=== PATIENT | female | born 1955 | race Caucasian/White ===

== ENCOUNTER 2019-12-22 07:51 | Emergency (ER) | payer BC, SELFPAY ==
[2019-12-22 08:00] VITALS: BP 145/70; PULSE 62; PULSE 64; RESP 20; TEMP 36.6; O2SAT 95
--- NOTE | 2019-12-22 08:21 | ECG_ITS ---
Measurements Intervals [place] Rate: 56 P: 60 NH: 180 QRS: 35 QRSD: 106 T: 50 QT: 431 QTc: 419 Interpretive Statements SINUS BRADYCARDIA BASELINE WANDER- III BORDERLINE ECG Electronically Signed On 12-22-2019 9:52:59 CDT by Salvador Whatley D.O.
[2019-12-22 08:47] LABS: Basophils Absolute Auto 0.03 K/mm3 (0.00-0.10); Basophils Percent Auto 0.3 % (0.0-1.0); Eosinophils Absolute Auto 0.16 K/mm3 (0.02-0.50); Eosinophils Percent Auto 1.9 % (1.0-6.0); Hematocrit 41.4 % (35.0-49.0); Immature Granulocyte Absolute 0.07 K/mm3 (0.00-0.00); Immature Granulocyte Percent A 0.8 % (0.0-0.0); Lymphocytes Absolute Auto 1.92 K/mm3 (1.10-4.50); Lymphocytes Percent Auto 22.4 % (18.0-42.0); Mean Corpuscular HGB Conc 31.4 g/dL (32.0-36.0); Mean Corpuscular Volume 89.2 fL (78.0-102.0); Mean Platelet Volume 10.6 fl (9.2-11.8); Monocytes Percent Auto 9.3 % (2.0-11.0); Neutrophils Absolute Auto 5.6 K/mm3 (1.7-7.2); Neutrophils Percent Auto 65.3 % (50.0-70.0); Platelet Count Result 264 K/mm3 (150-420); Red Blood Count 4.64 M/mm3 (4.20-5.40); White Blood Count 8.6 K/mm3 (4.8-10.8)
[2019-12-22 09:14] LABS: Alanine Aminotransferase 20 U/L (14-59); Albumin Level 3.4 g/dL (3.4-5.0); Alkaline Phosphatase 108 U/L (46-116); Anion Gap 11.1 mmol/L (7-16); Aspartate Amino Transferase 18 U/L (15-37); Bilirubin,Total 0.3 mg/dL (0.00-1.00); Blood Urea Nitrogen 12 mg/dL (7-18); Carbon Dioxide 31 mmol/L (21-32); Chloride 105 mmol/L (98-108); Estimated CRCL calculation 76 ml/min; Estimated Glomerular Filt Rate > 60; Glucose 110 mg/dL (70-99); Magnesium 2.2 mg/dL (1.8-2.4); Osmolality Calculated 296 mOsm/kg (285-295); Potassium 4.1 mmol/L (3.5-5.1); Sodium 143 mmol/L (136-145); Thyroid Stimulating Hormone 0.53 uIU/mL (0.36-3.74); Total Protein 7.1 g/dL (6.4-8.2); Troponin I < 0.02 ng/mL (0.00-0.056)
--- NOTE | 2019-12-22 09:17 | ED.GENADULT ---
HPI - General Adult General Chief complaint: Unspecified Stated complaint: irregular heart beat Source: patient History of Present Illness HPI narrative: This is a 64-year-old female presents to the emergency department with some palpitations, apparently she has had palpitations off and on since 2010 and had a workup by her application integration architect. Patient has a history of hypertension and hypercholesterolemia. Is currently on carvedilol, and has a heart rate 56, currently asymptomatic with no chest pain no shortness of breath currently no palpitations no fever chills no abdominal pain no chest pain no headaches no blurry vision. Onset (ago): hour(s) Related Data Home Medications Medication Instructions Recorded Confirmed aspirin [Aspirin Low Dose] 81 mg PO DAILY 12/22/19 12/22/19 carvedilol 6.25 mg PO BID 12/22/19 12/22/19 metformin 500 mg PO DAILY 12/22/19 12/22/19 multivitamin [Daily Multi-Vitamin] 1 tablet PO DAILY 12/22/19 12/22/19 omega 4-zac-nfa-fish oil [Fish Oil] 1 cap PO BID 12/22/19 12/22/19 rosuvastatin 2.5 mg PO DAILY 12/22/19 12/22/19 Allergies Allergy/AdvReac Type Severity Reaction Status Date / Time No Known Allergies Allergy Unverified 06/26/16 07:46 Review of Systems Review of Systems: All systems reviewed & are unremarkable except as noted in HPI and below PMFSH Past Medical History Medical History HLD (hyperlipidemia) HTN (hypertension) Exam Const: General: no acute distress and alert Orientation/consciousness: patient oriented x3 HENMT: Head: normal to inspection Eyes: Conjunctivae: conjunctivae normal Pupils: Equal, round and reactive pupils present Neck: Neck: normal visual inspection and no lymphadenopathy Chest: Chest palpation & inspection: normal inspection of the chest Resp: Effort & Inspection: normal respiratory effort Auscultation: clear to auscultation bilaterally Cardio: Rate: regular rate and bradycardic Rhythm: regular rhythm GI: GI Palp: Yes Soft to palpation : General: Yes no CVA tenderness Skin: General skin exam: normal color Rashes: no rashes Neuro: General: patient oriented x3, moves all extremities, no meningeal signs and no focal motor deficits Psych: Mental Status: mental status grossly normal Course Vital Signs Vital signs: Vital Signs Temperature 36.6 C 12/22/19 08:00 Pulse Rate 62 12/22/19 08:00 Respiratory Rate 20 12/22/19 08:00 Blood Pressure 145/70 H 12/22/19 08:00 Pulse Oximetry 95 12/22/19 08:00 Temperature 36.6 C 12/22/19 08:00 Pulse Rate 64 12/22/19 08:00 Respiratory Rate 20 12/22/19 08:00 Blood Pressure 145/70 H 12/22/19 08:00 Pulse Oximetry 95 12/22/19 08:00 Medical Decision Making Vital Signs Vital Signs: Vital Signs Temperature 36.6 C 12/22/19 08:00 Pulse Rate 62 12/22/19 08:00 Respiratory Rate 20 12/22/19 08:00 Blood Pressure 145/70 H 12/22/19 08:00 Pulse Oximetry 95 12/22/19 08:00 Temperature 36.6 C 12/22/19 08:00 Pulse Rate 64 12/22/19 08:00 Respiratory Rate 20 12/22/19 08:00 Blood Pressure 145/70 H 12/22/19 08:00 Pulse Oximetry 95 12/22/19 08:00 Lab Data Result diagrams: 12/22/19 08:42 12/22/19 08:42 Labs: Lab Results 12/22/19 12/22/19 12/22/19 Range/Units 08:42 08:42 08:42 WBC 8.6 (4.8-10.8) K/mm3 RBC 4.64 (4.20-5.40) M/mm3 Hgb 13.0 (12.0-15.0) g/dL Hct 41.4 (35.0-49.0) % MCV 89.2 (78.0-102.0) fL MCH 28.0 (27.0-31.0) pg MCHC 31.4 L (32.0-36.0) g/dL RDW 14.0 (11.6-14.4) % Plt Count 264 (150-420) K/mm3 MPV 10.6 (9.2-11.8) fl Immature Gran % (Auto) 0.8 H (0.0-0.0) % Neut % (Auto) 65.3 (50.0-70.0) % Lymph % (Auto) 22.4 (18.0-42.0) % [place] % (Auto) 9.3 (2.0-11.0) % Eos % (Auto) 1.9 (1.0-6.0) % Baso % (Auto) 0.3 (0.0-1.0) % Lymph # (Auto) 1.92 (1.10-4.50) K/mm3 [place] # (Au
[2019-12-22 09:21] VITALS: BP 144/71; PULSE 61; RESP 20; O2SAT 94
== END 2019-12-22 09:27 | disposition home or self-care (01) ==
PROVIDERS: Emergency Provider Emergency Medicine; PCP Internal Medicine
DX: R00.2 Palpitations (principal)
CPT/HCPCS: 36415; 80053; 83735; 84443; 84484; 85025; 93005; 99283; 99284

== ENCOUNTER 2019-12-22 15:59 | Outpatient (CLI) | payer BC, SELFPAY ==
--- NOTE | 2019-12-25 09:07 | WPDHOLTEREM ---
Holter/Event Monitor Holter/Event Monitor Date of procedure: 12/22/19 Procedure Type: 24 hour holter monitor Indications: Palpitations Conclusion: 1. 24 hour holter monitor on 12/22/19. 2. Predominant rhythm is sinus rhythm. HR range 47-97 bpm; average HR 68 bpm. 3. There are 30 premature supraventricular complexes and 4 supraventricular couplets. One 5 beat atrial tachycardia at 124 bpm. 4. There are 610 premature ventricular complexes and 2 ventricular couplets. No ventricular tachycardia. 5. No sinoatrial or atrioventricular blocks. No significant pauses greater than 2 seconds. 6. Patient reports symptoms of tiredeness, headache and shortness of breath which demonstrate sinus rhythm, HR range 52-76 bpm.
== END 2019-12-22 16:00 | disposition home or self-care (01) ==
LOC: CHSCARD 16:01
PROVIDERS: PCP Internal Medicine; Visit Provider Internal Medicine
DX: R00.2 Palpitations (principal)
CPT/HCPCS: 93225; 93226

== ENCOUNTER 2019-12-28 08:25 | Outpatient (CLI) | payer BC, SELFPAY ==
--- NOTE | 2019-12-28 08:32 | ECHO_ITS ---
Patient Info Name: Zulema Prado Age: 64 years : 1955 Gender: Female Ht: 68 in Wt: 200 lbs BSA: 2.11 m2 HR: 97 bpm BP: 159 / 80 mmHg Heart Rhythm: Sinus Rhythm Technical Quality: Fair Exam Date: 12/28/2019 7:39 AM Exam Location: [facility] Patient Status: Outpatient Admit Date: 12/28/2019 Staff Ordering Physician: Yolanda Spicer MD Can Filling Room Sweeper: Jessica Edwards RDCS Attending Provider: Yolanda Spicer MD Referring Physician: Nayan MENA; Exam Type: CA echo doppler color flow Study Info Indications R00.2 - Palpitations Complete two-dimensional, color flow and Doppler transthoracic echocardiogram is performed with contrast to opacify the left ventrical and to improve the deliniation of the left ventrical endocarial boarders. Strain analysis performed. Contrast/Agitated Saline Contrast/Ag. Saline: Definity Amount: 8.00 ml IV Access Condition: patent with no signs of infiltration New IV Access: Left Site Condition: No extravasation, Site dressing applied and IV removed History/Risk Factors Hypertension: Yes Dyslipidemia: Yes Congenital Heart Disease (CHD): Yes Diabetic Therapy: Oral Peripheral Arterial Disease (PAD): No Myocardial Infarction (HI): Yes Chronic Lung Disease: Yes Obesity: Yes Renal Disease: No Congestive Heart Failure (CHF): No Cardiomyopathy/LV Systolic Dysfunction: Yes Diabetes Mellitus: Yes COPD: No Tobacco Use: Never Cerebrovascular Disease: No Family History: Diabetes Mellitus, Coronary Artery Disease Deep Vein Thrombosis (DVT): None Dialysis: None Frailty Scale (CSHA): 2: Well Prior Interventions Pacemaker: No PCI: No CABG: No Valve Surgery: No ICD: No PV Intervention: None Heart Transplant: No Summary 1. Left ventricular chamber dimension is normal. 2. Definity contrast administered did not improve wall motion interpretation. 3. Left ventricular systolic function is normal, estimated at 60-65%. 4. The left ventricular diastolic function is grade I diastolic dysfunction. 5. E/e' 6 is not elevated. 6. Global longitudinal strain is abnormal at -14.4%. Recommendations * Continue medical therapy for diabetes. Left Ventricle E/e' 6 is not elevated. Global longitudinal strain is abnormal at -14.4%. Definity contrast administered did not improve wall motion interpretation. Left ventricular chamber dimension is normal. Left ventricular systolic function is normal, estimated at 60-65%. The left ventricular diastolic function is grade I diastolic dysfunction. Right Ventricle Right ventricular chamber dimension is normal. Right ventricular systolic function is normal. Left Atria Left atrial chamber dimension is normal. Right Atria Right atrial chamber dimension is normal. Aortic Valve The aortic valve is trileaflet. There is no aortic valve stenosis. There is no aortic valve regurgitation. Pulmonic Valve There is no pulmonic regurgitation. Mitral Valve There is no mitral valve stenosis. There is no mitral valve regurgitation. Tricuspid Valve There is no tricuspid valve regurgitation. Pericardium/Pleural There is no pericardial effusion. Inferior Vena Cava Normal inferior vena cava with >50% collapse upon inspiration consistent with normal right atrial pressure, 5 mmHg. Aorta The aortic root size at t
== END 2019-12-28 08:26 | disposition home or self-care (01) ==
LOC: CHSIMG 08:27
PROVIDERS: PCP Internal Medicine; Visit Provider Internal Medicine
DX: R00.2 Palpitations (principal)
CPT/HCPCS: C8929

== ENCOUNTER 2020-07-31 12:50 | Outpatient (CLI) | payer MEDICARE, SELFPAY ==
--- NOTE | ~2020-07-31 | MM_ITS ---
EXAMINATION: MM screening [facility] BI w lee HISTORY: Screening mammogram TECHNIQUE: Craniocaudal and mediolateral oblique 3-D tomosynthesis images were obtained and synthetic 2-D images were generated. CAD analysis was submitted and interpreted. COMPARISON: 02/25/2019, 07/27/2018, 02/21/2017 BREAST PARENCHYMAL COMPOSITION: There are scattered areas of fibroglandular density. FINDINGS: There is no evidence of suspicious mass, calcification, or architectural distortion to sugg est malignancy in either breast. There has been no suspicious interval change. IMPRESSION: 1. No mammographic evidence of malignancy. 2. Recommend routine screening mammography in one year. BI-RADS Category 1: Negative Reviewed, dictated and finalized at location A.
--- NOTE | ~2020-07-31 | US_ITS ---
EXAMINATION: US carotid duplex BI DATE: 07/31/2020 13:40 INDICATION: Bilateral carotid stenosis. TECHNIQUE: Grayscale, color Doppler, and pulsed Doppler images of the cervical carotid arteries were obtained. The degree of vessel stenosis is placed in one of the following categories: normal, <50%, 5 0-69%, >=70% but less than near-occlusion, near-occlusion, or total occlusion. Note that percent sten osis relative to normal distal artery lumen diameter is indirectly measured from velocity measurement s as described by Alvin, et al. Radiology 2003; 229:340-346. COMPARISON: Ultrasound 07/30/2017 FINDINGS: RIGHT: The right common carotid artery (CCA) peak systolic velocity (PSV) is 86 cm/s. The right internal car otid artery (ICA) PSV is 87 cm/s. The right ICA end-diastolic velocity (EDV) is 18 cm/s. The right IC A/CCA PSV ratio is 1.0. Grayscale and color Doppler images yield an estimate of <50% diameter reducti on from plaque in the ICA. There is antegrade flow in the right vertebral artery. LEFT: The left CCA PSV is 84 cm/s. The left ICA PSV is 84 cm/s. The left ICA EDV is 26 cm/s. The left ICA/C CA PSV ratio is 1.0. Grayscale and color Doppler images yield an estimate of <50% diameter reduction from plaque in the ICA. There is antegrade flow in the left vertebral artery. IMPRESSION: 1. <50% stenosis in the right internal carotid artery. 2. <50% stenosis in the left internal carotid artery. Reviewed, dictated and finalized at location A.
== END 2020-07-31 12:51 | disposition home or self-care (01) ==
PROVIDERS: PCP Internal Medicine; Visit Provider Internal Medicine
DX: Z12.31 Encounter for screening mammogram for malignant neoplasm of breast (principal); I65.23 Occlusion and stenosis of bilateral carotid arteries
CPT/HCPCS: 77063; 77067; 93880

== ENCOUNTER 2020-12-17 12:22 | Outpatient (CLI) | payer MEDICARE, SELFPAY ==
[2020-12-17 13:46] LABS: SARS-CoV-2 Ag Negative (Negative)
[2020-12-18 18:33] LABS: SARS-CoV-2 RNA PCR Negative
== END 2020-12-17 12:23 | disposition home or self-care (01) ==
LOC: CHSLAB 12:26
PROVIDERS: PCP Internal Medicine; Visit Provider Internal Medicine
DX: Z20.822 Contact with and (suspected) exposure to COVID-19 (principal)
CPT/HCPCS: 87426; C9803; U0003; U0005

== ENCOUNTER 2021-01-30 08:11 | Outpatient (CLI) | payer MEDICARE, SELFPAY ==
--- NOTE | ~2021-01-30 | US_ITS ---
EXAMINATION: US thyroid EXAM DATE: 01/30/2021 09:11 INDICATION: Hyperthyroidism. TECHNIQUE: Multiple grayscale and Doppler images of the thyroid were obtained (by a technologist who performed the scan) and subsequently reviewed. Individual nodules and recommendations may be reporte d in accordance with TI-RADS system as designated by the 2017 ACR White Paper TI-RADS committee. Comp arison is made to prior examination from 08/13/2017. FINDINGS: Right thyroid lobe measures 5.6 x 2.1 x 2.2 cm, the left measuring 5.1 x 1.9 x 1.8 cm, mildly enlarge d measurements. There is diffusely heterogeneous thyroid echogenicity with hypervascularity. No focal nodule is identified. IMPRESSION: Goiter, hypervascular heterogeneous parenchyma. Reviewed, dictated and finalized at location A.
== END 2021-01-30 08:12 | disposition home or self-care (01) ==
LOC: CHSIMG 08:13
PROVIDERS: PCP Internal Medicine; Visit Provider Internal Medicine
DX: E05.90 Thyrotoxicosis, unspecified without thyrotoxic crisis or storm (principal)
CPT/HCPCS: 76536

== ENCOUNTER 2021-06-04 00:58 | Day surgery (SDC) | payer MEDICARE, SELFPAY ==
[2021-05-22 14:21] VITALS: BMI 30.4
[2021-06-04 08:45] VITALS: BP 171/64; PULSE 61; RESP 16; TEMP 35.9; O2SAT 99; BMI 30.3
--- NOTE | 2021-06-04 09:01 | P.PNAN_ITS ---
Anes - Initial Pre Proc Eval Procedure: Operation Date: 06/04/21 09:30 Proposed Procedures p Screening Colonoscopy - Tor Duvall MD Date/Time: 06/04/21 09:01 Surgeon: Tor Duvall MD Pre Op Diagnosis: hx of colon polyps Patient Data Age: 65 Gender: F Height: 1.73 m Weight: 90.5 kg Last Vital Signs Temp 96.6 F L 06/04/21 08:45 Pulse 61 06/04/21 08:45 Resp 16 06/04/21 08:45 BP 171/64 H 06/04/21 08:45 Pulse Ox 99 06/04/21 08:45 Allergies Allergy/AdvReac Type Severity Reaction Status Date / Time No Known Allergies Allergy Verified 06/04/21 08:42 Home Medications Medication Instructions Recorded Confirmed Type aspirin [Aspirin Low Dose] 81 mg PO DAILY 12/22/19 06/04/21 History carvedilol 6.25 mg PO BID 12/22/19 06/04/21 History metformin 500 mg PO DAILY 12/22/19 06/04/21 History multivitamin [Daily Multi-Vitamin] 1 tablet PO DAILY 12/22/19 06/04/21 History omega 7-ajw-xag-fish oil [Fish Oil] 1 cap PO BID 12/22/19 06/04/21 History rosuvastatin 2.5 mg PO DAILY 12/22/19 06/04/21 History cholecalciferol (vitamin D3) 25 mcg PO DAILY 05/22/21 06/04/21 History [Vitamin D3] omeprazole 20 mg PO DAILY 05/22/21 06/04/21 History Patient hx anesthesia problems: none Family hx anesthesia problems: none [facility] Past Medical History Medical History (Updated 12/23/19 @ 00:00 by Background Diann) HLD (hyperlipidemia) HTN (hypertension) Social History Social History Smoking status: Never smoker Living arrangements: alone Spiritual care concerns: No Anes - Eval Final PreProcedure Day of Procedure 06/04/21 09:01 Patient weight: obese Heart: regular rate and rhythm Lungs: clear to auscultation Airway: Mallampati scale class III Neurological: alert and oriented Last oral intake: >/= 8 hours ASA classification: III Emergent: no Anesthetic plan: proceed Anesthesia type and monitoring: general GIVS and standard monitoring Informed Consent: The patient's anesthetic plan and its attendant risks and benefits were discussed with the patient/family/POA. Questions were solicited and answers provided to the satisfaction of the patient/family/POA.
[2021-06-04 09:03] LABS: Glucose Point of Care 115 mg/dl (65-105)
[2021-06-04] MEDS: LACTATED RINGERS 1,000 ML 30 ML IV CONT (09:10)
--- NOTE | 2021-06-04 09:11 | WPDGICN ---
Assessment and Plan Assessment and plan (1) History of colon polyps: Code(s): Z86.010 - Personal history of colonic polyps Status: Acute Assessment and Plan: Patient has a prior history of colon polyps for this reason follow-up colonoscopy has been advised. Further recommendations will be given after endoscopy. GI Consult Note Consult date/time: 06/04/21 09:11 HPI: Zulema Prado is a 65 year old female presents for screening colonoscopy. Patient has a prior history of colon polyps. Most recent exam was 2014. Patient reports that her current weight appetite bowel movements are normal. Patient denies abdominal pain. She has had no bleeding. Family history is noncontributory. Review of Systems Review of Systems: All systems reviewed & are unremarkable except as noted in HPI and below PMFSH Past Medical History Medical History (Updated 06/04/21 @ 09:12 by Tor Duvall MD) HLD (hyperlipidemia) HTN (hypertension) Social History Social History Smoking status: Never smoker Living arrangements: alone Spiritual care concerns: No Meds Home Medications and Allergies Home Medications Medication Instructions Recorded Confirmed Type aspirin [Aspirin Low Dose] 81 mg PO DAILY 12/22/19 06/04/21 History carvedilol 6.25 mg PO BID 12/22/19 06/04/21 History metformin 500 mg PO DAILY 12/22/19 06/04/21 History multivitamin [Daily Multi-Vitamin] 1 tablet PO DAILY 12/22/19 06/04/21 History omega 4-bfj-rac-fish oil [Fish Oil] 1 cap PO BID 12/22/19 06/04/21 History rosuvastatin 2.5 mg PO DAILY 12/22/19 06/04/21 History cholecalciferol (vitamin D3) 25 mcg PO DAILY 05/22/21 06/04/21 History [Vitamin D3] omeprazole 20 mg PO DAILY 05/22/21 06/04/21 History Allergies Allergy/AdvReac Type Severity Reaction Status Date / Time No Known Allergies Allergy Verified 06/04/21 08:42 Vital Signs Vital Signs - 24 hr 06/04/21 08:45 Temperature 96.6 F L Pulse Rate 61 Respiratory Rate 16 Blood Pressure 171/64 H Pulse Oximetry 99 Exam Narrative: Physical exam reveals patient be alert. Vital signs are stable. HEENT exam is unremarkable. Patient is anicteric. Lungs are clear to auscultation and percussion. Heart is without murmur or extra sounds. Abdominal exam bowel sounds are present soft nontender with no organomegaly. Digital external rectal exam is normal.
[2021-06-04 10:10] VITALS: BP 112/43; PULSE 52; RESP 20; O2SAT 95
[2021-06-04 10:20] VITALS: BP 133/50; PULSE 53; RESP 22; O2SAT 97
[2021-06-04 10:30] VITALS: BP 140/56; PULSE 50; RESP 18; O2SAT 96
== END 2021-06-04 10:39 | disposition home or self-care (01) ==
PROVIDERS: PCP Internal Medicine; Visit Provider Internal Medicine Gastroenterology
PROC: 0DJD8ZZ Inspection of Lower Intestinal Tract, Via Natural or Artificial Opening Endoscopic (ICD-10-PCS; CPT 45378; principal; 2021-06-04 09:30)
DX: Z12.11 Encounter for screening for malignant neoplasm of colon (principal); Z86.010 Personal history of colon polyps; I10 Essential (primary) hypertension; E78.5 Hyperlipidemia, unspecified; Z79.82 Long term (current) use of aspirin; Z79.84 Long term (current) use of oral hypoglycemic drugs; E66.9 Obesity, unspecified; Z68.30 Body mass index [BMI] 30.0-30.9, adult
CPT/HCPCS: G0105; 82948; J2704; J7120

== ENCOUNTER 2021-08-01 10:34 | Outpatient (CLI) | payer MEDICARE, SELFPAY ==
--- NOTE | ~2021-08-01 | MM_ITS ---
EXAMINATION: MM screening [facility] BI w lee HISTORY: Screening mammogram TECHNIQUE: Craniocaudal and mediolateral oblique 3-D tomosynthesis images were obtained and synthetic 2-D images were generated. CAD analysis was submitted and interpreted. COMPARISON: 07/31/2020, 07/24/2019, 07/27/2018 bilateral screening mammogram examinations BREAST PARENCHYMAL COMPOSITION: There are scattered areas of fibroglandular density. FINDINGS: There is no evidence of suspicious mass, calcification, or architectural distortion to sugg est malignancy in either breast. There has been no suspicious interval change. IMPRESSION: 1. No mammographic evidence of malignancy. 2. Recommend routine screening mammography in one year. BI-RADS Category 1: Negative Reviewed, dictated and finalized at location A.
== END 2021-08-01 10:35 | disposition home or self-care (01) ==
LOC: CHSIMG 10:35
PROVIDERS: PCP Internal Medicine; Visit Provider Internal Medicine
DX: Z12.31 Encounter for screening mammogram for malignant neoplasm of breast (principal)
CPT/HCPCS: 77063; 77067

== ENCOUNTER 2022-06-25 09:23 | Outpatient (CLI) | payer MEDICARE, SELFPAY ==
--- NOTE | ~2022-06-25 | US_ITS ---
EXAMINATION: US carotid duplex BI DATE: 06/25/2022 09:59 INDICATION: Carotid stenosis TECHNIQUE: Grayscale, color Doppler, and pulsed Doppler images of the cervical carotid arteries were obtained. The degree of vessel stenosis is placed in one of the following categories: normal, <50%, 5 0-69%, >=70% but less than near-occlusion, near-occlusion, or total occlusion. Note that percent sten osis relative to normal distal artery lumen diameter is indirectly measured from velocity measurement s as described by Alvin, et al. Radiology 2003; 229:340-346. Notes: Normal: Peak systolic velocity <125 centimeters/sec and no plaque <50%. Peak systolic velocity <125 ( EDV <40; ICA/CCA PSV ratio <2.0; used these factors only a tandem lesions or low cardiac output or co ntralateral disease) 50-69 %: PSV 125-230 (EDV 40-100; ratio 2-4) >= 70% but less than near occlusion: PSV greater than 230 (EDV > 100; ratio> 4.0) Near Occlusion: PSV that is variable; markedly narrowed lumen Occlusion: Absent flow on color/spectral Doppler and no lumen on alonso scale. COMPARISON: None. FINDINGS: RIGHT: The right common carotid artery (CCA) peak systolic velocity (PSV) is 68 cm/s. The right internal car otid artery (ICA) PSV is 96 cm/s. The right ICA end-diastolic velocity (EDV) is 25 cm/s. The right IC A/CCA PSV ratio is 1.4. The external carotid artery (ECA) PSV is 77 cm/s. There is antegrade flow in the right vertebral artery. LEFT: The left CCA PSV is 68 cm/s. The left ICA PSV is 98 cm/s. The left ICA EDV is 27 cm/s. The left ICA/C CA PSV ratio is 77. The ECA PSV is 95 cm/s. There is antegrade flow in the left vertebral artery. IMPRESSION: 1. Less than 50% stenosis in the right internal carotid artery by sonographic criteria. 2. Less than 50% stenosis in the left internal carotid artery by sonographic criteria. Reviewed, dictated and finalized at location A. IMPRESSION: 1. Less than 50% stenosis in the right internal carotid artery by sonographic rick richter. 2. Less than 50% stenosis in the left internal carotid artery by sonographic mouna velasquez.
--- NOTE | ~2022-06-25 | DEXA_ITS ---
Bone Density Report Name: MONICA MARINO Age: 67 Sex: Female Ethnicity: White Date of : 1955 Indication: postmenopausal; screening for osteoporosis; height loss; hysterectomy; Referring Provider: Yolanda Spicer Study: Bone densitometry was performed. Exam Date: June 25, 2022 Accession number: [id number] Bone Density: Region BMD T-score Z-score Classification AP Spine(L1, L2, L4) 1.047 0.1 2.0 Normal Femoral Neck (Left) 0.925 0.7 2.3 Normal Total Hip (Left) 1.052 0.9 2.2 Normal Femoral Neck (Right) 0.929 0.7 2.3 Normal Total Hip (Right) 1.024 0.7 2.0 Normal Femoral Neck Mean 0.927 0.7 2.3 Normal Total Hip Mean 1.038 0.8 2.1 Normal World Health Organization criteria for BMD impression classify patients as: Normal (T-score at or above -1.0), Osteopenia (T-score between -1.0 and -2.5), or Osteoporosis (T-score at or below -2.5). 10-year Fracture Risk: FRAX not reported because: All T-scores for Spine Total, Hip Total, Femoral Neck at or above -1.0 Clinical Information Provided by Patient: Has used the following medications: Vitamin D, Calcium, multivit Has the following medical conditions: Hysterectomy Patient maximum height was 68 Menopause Age: 55 No regular weight bearing exercise Does not regularly consume dairy products Onset of menses at age 13 Number of children 2 Impression: The patient has normal bone mass. Discussion: BONE DENSITY IS ABOVE THE MINIMUM DESIRABLE LEVEL AT ALL SKELETAL SITES TESTED. This patient?s bone mineral density is above the minimum desirable level (T-score -1.0 or better) at all sites measured. The patient should follow a healthful lifestyle (good nutrition with adequate calcium and vitamin D, and appropriate weight-bearing exercise). Follow-Up: Consider repeating this study in 5 years or sooner if there is some new clinical indication. Reported by: Dr. Andrzej Basilio on 06/25/2022 10:12:00 AM. Reviewed, dictated and finalized at location A. [facility]
== END 2022-06-25 09:24 | disposition home or self-care (01) ==
PROVIDERS: PCP Internal Medicine; Visit Provider Internal Medicine
DX: I65.29 Occlusion and stenosis of unspecified carotid artery (principal); M81.0 Age-related osteoporosis without current pathological fracture
CPT/HCPCS: 77080; 93880

== ENCOUNTER 2022-07-08 07:30 | Emergency (ER) | payer MEDICARE, SELFPAY ==
[2022-07-08] VITALS (18 sets, daily range): BP systolic 135–169; BP diastolic 65–114; PULSE 82–122; RESP 15–21; TEMP 36.3–36.6; O2SAT 94–97
--- NOTE | 2022-07-08 07:34 | ED.ARRPALP ---
HPI - Arrhythmia/Palpitations General Chief Complaint: Arrhythmia/Palpitations Stated Complaint: heart palpatations Time Seen by Provider: 07/08/22 07:34 Source: patient and RN notes reviewed Mode of arrival: ambulatory Limitations: no limitations History of Present Illness HPI narrative: patient states that she has had intermittent palpitations since 2010 but never been able to catch anything on EKG or on physical exam. She had a similar episode to this about 3 years ago came here to the emergency room by the time she arrived her heart rate was back. She is not on any blood thinners. She has been speculated have paroxysmal atrial fibrillation. She started having symptoms 5:00 a.m. this morning. She says she is feels like heart is beating out of her chest and sometimes skipping beats. She denies any other associated symptoms including chest pain, shortness of breath, diaphoresis. MD complaint: rapid heart beat, skipped beats and palpitations Onset (ago): hour(s) (2) Duration: constant Severity: moderate Context: occurred during rest Arrhythmia history: atrial fibrillation Associated symptoms: shortness of breath (mild) and diaphoresis Related Data Home Medications Medication Instructions Recorded Confirmed aspirin 81 mg tablet,delayed 81 mg PO DAILY 12/22/19 07/08/22 release (Valentine Low Dose Aspirin) carvedilol 6.25 mg tablet 6.25 mg PO BID 12/22/19 07/08/22 metformin 500 mg tablet,extended 500 mg PO DAILY 12/22/19 07/08/22 release 24 hr multivitamin (Daily Multi-Vitamin 1 tablet PO DAILY 12/22/19 07/08/22 tablet) omega 2-kel-lml-fish oil 1,000 mg 1 cap PO BID 12/22/19 07/08/22 (120 mg-180 mg) capsule (Fish Oil) rosuvastatin 5 mg tablet 2.5 mg PO DAILY 12/22/19 07/08/22 cholecalciferol (vitamin D3) 25 25 mcg PO DAILY 05/22/21 07/08/22 mcg (1,000 unit) capsule (Vitamin D3) omeprazole 20 mg capsule,delayed 20 mg PO DAILY 05/22/21 07/08/22 release magnesium oxide 400 mg (241.3 mg 400 mg PO DAILY 07/08/22 07/08/22 magnesium) tablet Allergies Allergy/AdvReac Type Severity Reaction Status Date / Time No Known Allergies Allergy Verified 06/04/21 08:42 Review of Systems Review of Systems: All systems reviewed & are unremarkable except as noted in HPI and below PMFSH Past Medical History Medical History HLD (hyperlipidemia) HTN (hypertension) Social History Social History Smoking status: Never smoker Spiritual care concerns: No Exam Const: General: healthy appearing, no acute distress and alert Nutritional Appearance: well nourished Orientation/consciousness: patient oriented x3 Limitations: no limitations HENMT: Head: normal to inspection Ears: external ears normal Eyes: Conjunctivae: conjunctivae normal Pupils: Equal, round and reactive pupils present EOM: EOMs intact bilaterally Neck: Neck: normal visual inspection Chest: Chest palpation & inspection: normal inspection of the chest Resp: Effort & Inspection: normal respiratory effort Auscultation: clear to auscultation bilaterally Cardio: Rate: tachycardic Rhythm: abnormal rhythm irregularly irregular Heart sounds: no murmurs GI: GI Palp: Yes Soft to palpation and No Tenderness to palpation present (GI) Auscultation: normal bowel sounds Back/Spine/Pelvis: Cervical Spine: cervical ROM normal Thoracic/Lumbar Spine: thoraco-lumbar ROM normal Skin: General skin exam: normal color Rashes: no rashes Neuro: General: patient oriented x3, moves all extremities, no focal motor deficits and CN's II-XI intact bilaterally Speech: normal speech Gait exam (Neuro): Normal gait present Extrem: General: normal to inspection and no clubbing, cyanosis or edema Psych: Mental Status: mental status grossly normal Affect: normal affect Attitude: cooperative Course Vital Signs Vital signs: Vital Signs Temperature 3
--- NOTE | 2022-07-08 07:38 | ECG_ITS ---
Measurements Intervals [place] Rate: 107 P: [place]: 0 QRS: 20 QRSD: 106 T: 22 QT: 347 QTc: 463 Interpretive Statements ATRIAL FLUTTER/TACHYCARDIA WITH RAPID VENTRICULAR RESPONSE MINIMAL ST DEPRESSION [0.025+ mV ST DEPRESSION] ABNORMAL ECG COMPARED TO ECG 12/22/2019 08:50:19 ATRIAL FLUTTER NOW PRESENT ST (T WAVE) DEVIATION NOW PRESENT Electronically Signed On 07-08-2022 17:05:45 CDT by Raghu Galvez M.D.
--- NOTE | 2022-07-08 07:51 | PC.NURSE ---
REPORT FROM SHIREEN WHITE AT THIS TIME. PT IS CURRENTLY RESTING ON STRETCHER AWAITING LAB RESULTS. NAD NOTED. PT IS CURRENTLY IN A FLUTTER RATE OF 91. WILL CONTINUE TO MONITOR.
[2022-07-08 08:02] LABS: Basophils Absolute Auto 0.04 K/mm3 (0.00-0.10); Basophils Percent Auto 0.4 % (0.0-1.0); Eosinophils Absolute Auto 0.19 K/mm3 (0.02-0.50); Hematocrit 43.6 % (35.0-42.0); Hemoglobin 13.9 g/dL (11.7-13.8); Immature Granulocyte Absolute 0.03 K/mm3 (0.00-0.00); Immature Granulocyte Percent A 0.3 % (0.0-0.0); Lymphocytes Absolute Auto 1.69 K/mm3 (1.10-4.50); Lymphocytes Percent Auto 18.1 % (18.0-42.0); Mean Corpuscular HGB Conc 31.9 g/dL (32.0-36.0); Mean Corpuscular Hemoglobin 28.5 pg (27.0-31.0); Mean Corpuscular Volume 89.3 fL (78.0-102.0); Mean Platelet Volume 10.6 fl (9.2-11.8); Monocytes Absolute Auto 0.66 K/mm3 (0.10-0.90); Monocytes Percent Auto 7.1 % (2.0-11.0); Neutrophils Absolute Auto 6.7 K/mm3 (1.7-7.2); Neutrophils Percent Auto 72.1 % (50.0-70.0); Platelet Count Result 263 K/mm3 (150-420); Red Blood Count 4.88 M/mm3 (4.20-5.40); Red Cell Distribution Width 13.7 % (11.6-14.4); White Blood Count 9.3 K/mm3 (4.8-10.8)
[2022-07-08 08:26] LABS: Alanine Aminotransferase 22 U/L (14-59); Albumin Level 3.5 g/dL (3.4-5.0); Alkaline Phosphatase 108 U/L (46-116); Anion Gap 9 mmol/L (8-16); Aspartate Amino Transferase 21 U/L (15-37); Bilirubin,Total 0.5 mg/dL (0.00-1.00); Blood Urea Nitrogen 16 mg/dL (7-18); Calcium 9.2 mg/dL (8.5-10.1); Carbon Dioxide 28 mmol/L (21-32); Chloride 105 mmol/L (98-108); Estimated CRCL calculation 65 ml/min; Estimated Glomerular Filt Rate > 60; Glucose 154 mg/dL (70-99); Magnesium 2.3 mg/dL (1.8-2.4); Osmolality Calculated 298 mOsm/kg (285-295); Sodium 142 mmol/L (136-145); Thyroid Stimulating Hormone 0.52 uIU/mL (0.36-3.74); Total Protein 7.4 g/dL (6.4-8.2); Troponin I 11.9 ng/L (0.00-60.4)
--- NOTE | 2022-07-08 08:42 | PC.NURSE ---
PT AND ARE AWAITING RESULTS AT THIS TIME. PT DENIED ANY NEEDS OR COMPLAINTS. CALL LIGHT AT BEDSIDE. NO CHANGE IN PT STATUS. WILL CONTINUE TO MONITOR.
== END 2022-07-08 09:20 | disposition home or self-care (01) ==
PROVIDERS: Emergency Provider Emergency Medicine; PCP Internal Medicine
DX: I48.3 Typical atrial flutter (principal); E78.5 Hyperlipidemia, unspecified; I10 Essential (primary) hypertension
CPT/HCPCS: 36415; 80053; 83735; 84443; 84484; 85025; 93005; 99284

== ENCOUNTER 2022-08-04 12:31 | Outpatient (CLI) | payer MEDICARE, SELFPAY ==
--- NOTE | ~2022-08-04 | MM_ITS ---
EXAMINATION: MM screening [facility] BI w lee HISTORY: Screening TECHNIQUE: Craniocaudal and mediolateral oblique 3-D tomosynthesis images were obtained and synthetic 2-D images were generated. CAD analysis was submitted and interpreted. COMPARISON: Comparison to multiple prior studies sequentially, with oldest reviewed study dated 07/05. BREAST PARENCHYMAL COMPOSITION: There are scattered areas of fibroglandular density. FINDINGS: There is no evidence of suspicious mass, calcification, or architectural distortion to sugg est malignancy in either breast. There has been no suspicious interval change. IMPRESSION: 1. No mammographic evidence of malignancy. 2. Recommend routine screening mammography in one year. BI-RADS Category 1: Negative Reviewed, dictated and finalized at location A.
== END 2022-08-04 12:32 | disposition home or self-care (01) ==
LOC: CHSIMG 12:33
PROVIDERS: PCP Internal Medicine; Visit Provider Internal Medicine
DX: Z12.31 Encounter for screening mammogram for malignant neoplasm of breast (principal)
CPT/HCPCS: 77063; 77067

== ENCOUNTER 2022-09-09 14:31 | Outpatient (CLI) | payer MEDICARE, SELFPAY ==
[2022-09-09 14:54] LABS: Basophils Absolute Auto 0.03 K/mm3 (0.00-0.10); Basophils Percent Auto 0.3 % (0.0-1.0); Eosinophils Percent Auto 2.2 % (1.0-6.0); Hematocrit 40.3 % (35.0-42.0); Hemoglobin 12.6 g/dL (11.7-13.8); Immature Granulocyte Absolute 0.04 K/mm3 (0.00-0.00); Immature Granulocyte Percent A 0.4 % (0.0-0.0); Lymphocytes Absolute Auto 1.74 K/mm3 (1.10-4.50); Lymphocytes Percent Auto 19.1 % (18.0-42.0); Mean Corpuscular HGB Conc 31.3 g/dL (32.0-36.0); Mean Corpuscular Hemoglobin 28.4 pg (27.0-31.0); Mean Platelet Volume 10.3 fl (9.2-11.8); Monocytes Absolute Auto 0.69 K/mm3 (0.10-0.90); Monocytes Percent Auto 7.6 % (2.0-11.0); Neutrophils Absolute Auto 6.4 K/mm3 (1.7-7.2); Neutrophils Percent Auto 70.4 % (50.0-70.0); Platelet Count Result 252 K/mm3 (150-420); Red Blood Count 4.43 M/mm3 (4.20-5.40); Red Cell Distribution Width 13.8 % (11.6-14.4); White Blood Count 9.1 K/mm3 (4.8-10.8)
[2022-09-09 15:29] LABS: Alanine Aminotransferase 21 U/L (14-59); Albumin Level 3.6 g/dL (3.4-5.0); Alkaline Phosphatase 113 U/L (46-116); Anion Gap 9 mmol/L (8-16); Aspartate Amino Transferase 19 U/L (15-37); Bilirubin,Total 0.4 mg/dL (0.00-1.00); Blood Urea Nitrogen 12 mg/dL (7-18); Calcium 8.9 mg/dL (8.5-10.1); Carbon Dioxide 31 mmol/L (21-32); Chloride 103 mmol/L (98-108); Estimated Glomerular Filt Rate > 60; Glucose 157 mg/dL (70-99); Osmolality Calculated 298 mOsm/kg (285-295); Potassium 3.8 mmol/L (3.5-5.1); Sodium 143 mmol/L (136-145)
== END 2022-09-09 14:32 | disposition home or self-care (01) ==
LOC: CHSLAB 14:42
PROVIDERS: PCP Internal Medicine
DX: I48.92 Unspecified atrial flutter (principal); Z01.818 Encounter for other preprocedural examination
CPT/HCPCS: 36415; 80053; 85025

== ENCOUNTER 2023-08-01 20:50 | Emergency (ER) | payer MEDICARE, SELFPAY ==
[2023-08-01] VITALS (14 sets, daily range): BP systolic 145–166; BP diastolic 53–89; PULSE 71–87; RESP 12–22; TEMP 36.4; O2SAT 93–97
--- NOTE | ~2023-08-01 | XR_ITS ---
EXAMINATION: XR chest 1V portable Exam Date/Time: 08/01/2023 21:09 CDT HISTORY: generalized weakness/shortness of breath Comparison: 10/13/2017. RESULT: Lines, tubes, and devices: Loop recorder. Lungs and pleura: Streaky bibasilar scar/atelectasis, otherwise clear. Cardiomediastinal silhouette: Stable. Other: No acute osseous or upper abdominal finding. IMPRESSION: No acute cardiopulmonary process. Reviewed, dictated and finalized at location K.
--- NOTE | 2023-08-01 21:06 | ECG_ITS ---
Measurements Intervals [place] Rate: 82 P: 29 [place]: 180 QRS: -16 QRSD: 93 T: 9 QT: 387 QTc: 453 Interpretive Statements SINUS RHYTHM WITH FREQUENT VENTRICULAR PREMATURE COMPLEXES WITH OCCASIONAL SUPRAVENTRICULAR PREMATURE COMPLEXES LOW QRS VOLTAGE IN PRECORDIAL LEADS [QRS DEFLECTION < 1.0 mV IN CHEST LEADS] INCOMPLETE RIGHT BUNDLE BRANCH BLOCK [90+ ms QRS DURATION, TERMINAL R IN V1/V2, 40+ ms S IN I/aVL/V4/V5/V6] POSSIBLE ANTERIOR MYOCARDIAL INFARCTION , PROBABLY OLD [30 ms Q WAVE IN V3/V4, OR R < 0.2 mV IN V4] INFERIOR MYOCARDIAL INFARCTION , PROBABLY OLD [40+ ms Q WAVE AND/OR ST/T ABNORMALITY IN II/aVF] ABNORMAL ECG COMPARED TO ECG 07/08/2022 07:29:24 SINUS RHYTHM NOW PRESENT INCOMPLETE RIGHT BUNDLE-BRANCH BLOCK NOW PRESENT MYOCARDIAL INFARCT FINDING NOW PRESENT Electronically Signed On 08-02-2023 13:29:03 CDT by Raghu Galvez M.D.
--- NOTE | 2023-08-01 21:36 | ED.ARRPALP ---
HPI - Arrhythmia/Palpitations General Chief Complaint: Arrhythmia/Palpitations Stated Complaint: irregular HR Source: patient and family Mode of arrival: ambulatory Limitations: no limitations History of Present Illness HPI narrative: this is a 68-year-old female that presents with palpitations, has some history of atrial fibrillation / a flutter and has had history of ablation currently not on any anticoagulants is in normal sinus rhythm with occasional skipped beats according to the patient with no chest pain no shortness of breath no nausea vomiting, patient does have some weakness with no abdominal pain no fever chills no nausea vomiting no diarrhea or constipation. Patient does follow with Cardiology and has currently a loop recorder in place. complaint: skipped beats Onset (ago): hour(s) Duration: intermittent Severity: mild Context: occurred during rest Arrhythmia history: history of ablation Associated symptoms: denies other symptoms Related Data Home Medications Medication Instructions Recorded Confirmed aspirin 81 mg tablet,delayed 81 mg PO DAILY 12/22/19 08/01/23 release (Valentine Low Dose Aspirin) carvedilol 6.25 mg tablet 6.25 mg PO BID 12/22/19 08/01/23 metformin 500 mg tablet,extended 500 mg PO DAILY 12/22/19 08/01/23 release 24 hr multivitamin (Daily Multi-Vitamin 1 tablet PO DAILY 12/22/19 08/01/23 tablet) omega 5-lim-nsh-fish oil 1,000 mg 1 cap PO BID 12/22/19 08/01/23 (120 mg-180 mg) capsule (Fish Oil) rosuvastatin 5 mg tablet 2.5 mg PO DAILY 12/22/19 08/01/23 cholecalciferol (vitamin D3) 25 25 mcg PO DAILY 05/22/21 08/01/23 mcg (1,000 unit) capsule (Vitamin D3) omeprazole 20 mg capsule,delayed 20 mg PO DAILY 05/22/21 08/01/23 release magnesium oxide 400 mg (241.3 mg 400 mg PO DAILY 07/08/22 08/01/23 magnesium) tablet Allergies Allergy/AdvReac Type Severity Reaction Status Date / Time No Known Allergies Allergy Verified 08/01/23 20:52 Review of Systems Review of Systems: All systems reviewed & are unremarkable except as noted in HPI and below PMFSH Past Medical History Medical History A-fib HLD (hyperlipidemia) HTN (hypertension) Pre-diabetes Surgical History Surgical History H/O gynecological procedure vaginal wall tie up H/O: hysterectomy Family History Family History Mother Lung cancer Father Heart disease Diabetes mellitus Social History Social History Smoking status: Never smoker Alcohol intake: never Substance use: never Substance use type: does not use Living arrangements: with family Occupation/Education: retired Gender identity (if verbalized by the patient): Female Sexual Orientation (if Verbalized by the Patient): Straight or Heterosexual Spiritual care concerns: No Exam Const: General: healthy appearing and no acute distress Nutritional Appearance: well nourished Orientation/consciousness: patient oriented x3 Limitations: no limitations HENMT: Head: normal to inspection Eyes: Conjunctivae: conjunctivae normal Pupils: Equal, round and reactive pupils present Neck: Neck: normal visual inspection, no lymphadenopathy and no meningeal signs Chest: Chest palpation & inspection: normal inspection of the chest Resp: Effort & Inspection: normal respiratory effort Auscultation: clear to auscultation bilaterally Cardio: Rate: regular rate Rhythm: regular rhythm GI: GI Palp: Yes Soft to palpation Auscultation: normal bowel sounds Skin: General skin exam: normal color Rashes: no rashes Neuro: General: patient oriented x3, moves all extremities and no meningeal signs Extrem: General: normal to inspection Psych: Mental Status: mental status grossly normal Affect: Anxious affect present
[2023-08-01 21:39] LABS: Basophils Absolute Auto 0.05 K/mm3 (0.00-0.10); Basophils Percent Auto 0.4 % (0.0-1.0); Eosinophils Absolute Auto 0.21 K/mm3 (0.02-0.50); Eosinophils Percent Auto 1.8 % (1.0-6.0); Hematocrit 42.8 % (35.0-42.0); Hemoglobin 13.5 g/dL (11.7-13.8); Immature Granulocyte Absolute 0.04 K/mm3 (0.00-0.00); Immature Granulocyte Percent A 0.4 % (0.0-0.0); Lymphocytes Absolute Auto 1.94 K/mm3 (1.10-4.50); Mean Corpuscular HGB Conc 31.5 g/dL (32.0-36.0); Mean Corpuscular Volume 88.8 fL (78.0-102.0); Mean Platelet Volume 10.6 fl (9.2-11.8); Monocytes Absolute Auto 0.79 K/mm3 (0.10-0.90); Monocytes Percent Auto 6.9 % (2.0-11.0); Neutrophils Absolute Auto 8.4 K/mm3 (1.7-7.2); Neutrophils Percent Auto 73.5 % (50.0-70.0); Platelet Count Result 278 K/mm3 (150-420); Red Blood Count 4.82 M/mm3 (4.20-5.40); White Blood Count 11.4 K/mm3 (4.8-10.8)
[2023-08-01 21:41] LABS: Appearance Urine Clear (Clear); Bilirubin Urine Negative (Negative); Blood Urine Trace-Intact (Negative); Color Urine Light Yellow (Yellow); Glucose Urine UA Negative (Negative); Ketones Urine Negative (Negative); Leukocyte Esterase Ur 1+ LEU/UL (Negative); Nitrate Urine Negative (Negative); Protein Urine Negative (Negative); Specific Grav Ur <= 1.005 (1.010-1.020); Urobilinogen Urine 0.2 mg/dL (0.2-1.0)
[2023-08-01 21:55] LABS: Add Urine Microscopic? YES; Bacteria Urine Trace /hpf; Mucus Urine Rare /lpf; RBC Urine 0-2 /hpf (0-2); Squamous Epithelial Cell Urine Rare /hpf (Few); WBC Urine 0-3 /hpf (0-3)
[2023-08-01 22:01] LABS: Alanine Aminotransferase 24 U/L (14-59); Albumin Level 3.5 g/dL (3.4-5.0); Alkaline Phosphatase 123 U/L (46-116); Anion Gap 14 mmol/L (8-16); Aspartate Amino Transferase 16 U/L (15-37); Bilirubin,Total 0.6 mg/dL (0.00-1.00); Blood Urea Nitrogen 14 mg/dL (7-18); Calcium 9.4 mg/dL (8.5-10.1); Carbon Dioxide 25 mmol/L (21-32); Chloride 101 mmol/L (98-108); Estimated CRCL calculation 66 ml/min; Estimated Glomerular Filt Rate > 60; Glucose 178 mg/dL (70-99); Magnesium 2.1 mg/dL (1.8-2.4); NT Pro B Type Natriuretic Pept 102 pg/mL (0-125); Osmolality Calculated 294 mOsm/kg (285-295); Potassium 3.5 mmol/L (3.5-5.1); Sodium 140 mmol/L (136-145); Total Protein 7.4 g/dL (6.4-8.2); Troponin I 7.9 ng/L (0.00-60.4)
[2023-08-01 22:07] LABS: CRP 0.7 mg/dL (0.0-0.9); Thyroid Stimulating Hormone 1.59 uIU/mL (0.36-3.74)
[2023-08-01 22:15] LABS: D Dimer 0.35 mg/L (0.19-0.50)
[2023-08-01] MEDS: NITROFURANTOIN MONOHYD MACROCR 100 MG CAP PO (22:25)
--- NOTE | 2023-08-04 12:35 | PC.NURSE ---
FINAL URINE CULTURE RESULT: NO GROWTH. NO ACTION NEEDED.
== END 2023-08-01 22:52 | disposition home or self-care (01) ==
PROVIDERS: Emergency Provider Emergency Medicine; PCP Internal Medicine
DX: N30.00 Acute cystitis without hematuria (principal); R00.2 Palpitations; I48.91 Unspecified atrial fibrillation; E78.5 Hyperlipidemia, unspecified; I10 Essential (primary) hypertension; Z79.899 Other long term (current) drug therapy; Z79.82 Long term (current) use of aspirin
CPT/HCPCS: 36415; 71045; 80053; 81001; 83735; 83880; 84443; 84484; 85025; 85380; 86140; 87086; 93005; 99284; A9270

== ENCOUNTER 2023-08-05 09:11 | Outpatient (CLI) | payer MEDICARE, SELFPAY ==
--- NOTE | ~2023-08-05 | XR_ITS ---
EXAMINATION: XR hip RT min 2V DATE: 08/05/2023 09:47 INDICATION: Right hip pain. TECHNIQUE: 2 views of right hip were obtained. COMPARISON: None. FINDINGS: Bone alignment is normal. No fracture. There is severe right hip osteoarthritis. Osteitis p ubis is noted. IMPRESSION: 1. Severe right hip osteoarthritis. Reviewed, dictated and finalized at location E.
--- NOTE | ~2023-08-05 | MM_ITS ---
EXAMINATION: MM screening [facility] BI w lee HISTORY: Screening mammogram TECHNIQUE: Craniocaudal and mediolateral oblique 3-D tomosynthesis images were obtained and synthetic 2-D images were generated. CAD analysis was submitted and interpreted. COMPARISON: 08/04/2022, 08/01/2021, 07/31/2020 BREAST PARENCHYMAL COMPOSITION: There are scattered areas of fibroglandular density. FINDINGS: There has been interval insertion of a loop recorder quadrant of the left breast. No suspic ious mass, calcification, or architectural distortion are identified in either breast to suggest gennaro gnancy. There has been no suspicious interval change. IMPRESSION: 1. No mammographic evidence of malignancy. 2. Recommend routine screening mammography in one year. BI-RADS Category 1: Negative Reviewed, dictated and finalized at location A.
== END 2023-08-05 09:12 | disposition home or self-care (01) ==
LOC: CHSIMG 09:13
PROVIDERS: PCP Internal Medicine; Visit Provider Obstetrics & Gynecology
DX: M25.551 Pain in right hip (principal); Z12.31 Encounter for screening mammogram for malignant neoplasm of breast; M16.11 Unilateral primary osteoarthritis, right hip
CPT/HCPCS: 73502; 77063; 77067

== ENCOUNTER 2023-08-20 08:23 | Outpatient (CLI) | payer MEDICARE, SELFPAY ==
--- NOTE | ~2023-08-20 | MR_ITS ---
MRI of the right hip Clinical history: Pain Technique: Coronal T1-weighted, T2-weighted, and proton-density fat-sat images, and axial T1-weighted and proton-density fat-sat images were acquired through the pelvis. Coronal T2-weighted images and c oronal, axial, and sagittal proton-density fat-sat images were acquired through the right hip. Findings: There is no fracture, avascular necrosis, transient osteoporosis of either hip. Bone marrow signals the proximal femora and visualized pelvic bones are unremarkable. There is moderate to advanced degenerative change of the right hip joint, with femoral head neck junc tion osteophyte formation, joint space narrowing and chondromalacia, and small reactive right hip samanta nt effusion. There is degenerative tearing of the inferior right acetabular labrum. Left hip joint space is relatively well preserved, possible minimal chondral thinning and minimal fem oral head neck junction osteophyte formation. Sludge about the pelvis and right hip is unremarkable. No muscle atrophy or edema. Visualized tendons are intact. No soft tissue mass or fluid collection evident otherwise. IMPRESSION: Moderate to advanced osteoarthritis of the right hip joint, as detailed above, with associated degene rative tearing of the inferior right acetabular labrum. Minimal degenerative change of the left hip joint. Reviewed, dictated and finalized at location M. D IN IMPRESSION: Moderate to advanced osteoarthritis of the right hip joint, as detailed above, with associated degenerative tearing of the inferior right acetabular labrum. Minimal degenerative change of the left hip joint.
== END 2023-08-20 08:24 | disposition home or self-care (01) ==
PROVIDERS: PCP Internal Medicine; Visit Provider Internal Medicine
DX: M25.551 Pain in right hip (principal); M16.11 Unilateral primary osteoarthritis, right hip
CPT/HCPCS: 73721

== ENCOUNTER 2023-10-08 13:37 | Outpatient (CLI) | payer MEDICARE, SELFPAY ==
--- NOTE | ~2023-10-08 | XR_ITS ---
EXAMINATION: XR lg joint inject/asp w image DATE: 10/08/2023 14:39 INDICATION: Right hip pain TECHNIQUE: A time-out was performed to verify the patient's name, date of , and procedure to b e performed. The procedure including the risks, benefits, and alternatives was discussed with the pat ient. Risks discussed included bleeding and infection. The patient understood the risks and agreed to proceed. The skin overlying the right joint was prepped and draped in usual sterile fashion. Anest hetic was administered with 1% lidocaine subcutaneously. A 22 G needle was advanced under fluoroscop ic guidance into the joint. Injection of 1 mL of Omnipaque 240 confirmed intra-articular position of the needle. Subsequently, injectate consisting of 5 mm of a 3:1:1 mixture of 1% lidocaine: 4 mg/mL dexamethasone: 40 mg/mL Kenalog for a total dosage of 4 mg dexamethasone and 40 mg Kenalog was instil led. Washout of contrast was seen confirming intra-articular administration. The needle was removed a nd the entry site was cleaned and dressed. There were no immediate complications. Fluoroscopy exposu re time was 0.1 minutes. The total number of images was 1. FINDINGS: Real-time fluoroscopy demonstrates the needle and contrast in the right hip joint. Patient' s pain prior to procedure:1/10. Patient's pain following the procedure: 0/10. IMPRESSION: 1. Successful right hip joint injection of local anesthetic and steroid with decrease in the patient' s presenting pain. Reviewed, dictated and finalized at location A. ING CHEF IMPRESSION: 1. Successful right hip joint injection of local anesthetic and steroid with de crease in the patient's presenting pain.
== END 2023-10-08 13:38 | disposition home or self-care (01) ==
PROVIDERS: PCP Internal Medicine; Visit Provider Internal Medicine
DX: M25.551 Pain in right hip (principal)
CPT/HCPCS: 20610; 77002; J1040; J1100; J3301; Q9966

== ENCOUNTER 2024-04-22 13:44 | Outpatient (CLI) | payer MEDICARE, SELFPAY ==
--- NOTE | ~2024-04-22 | XR_ITS ---
EXAMINATION: XR lg joint inject/asp w image DATE: 04/22/2024 14:46 INDICATION: Right hip pain TECHNIQUE: A time-out was performed to verify the patient's name, date of , and procedure to b e performed. The procedure including the risks, benefits, and alternatives was discussed with the pat ient. Risks discussed included bleeding and infection. The patient understood the risks and agreed to proceed. The skin overlying the right hip joint was prepped and draped in usual sterile fashion. A nesthetic was administered with 1% lidocaine subcutaneously. A 22 G needle was advanced under fluoro scopic guidance into the joint. Injection of 1 mL of Omnipaque 240 confirmed intra-articular positio n of the needle. Subsequently, injectate consisting of a 3:1:1 mixture of 1% lidocaine: 40 mg/mL Manuel alog and 4 mg/mL dexamethasone for a total dosage of 40 mg Kenalog and 4 mg dexamethasone was instill ed. Washout of contrast was seen confirming intra-articular administration. The needle was removed an d the entry site was cleaned and dressed. There were no immediate complications. Fluoroscopy exposur e time was 0.1 minutes. The total number of images was 2. Total DAP was 0.5 Gycm^2 FINDINGS: Real-time fluoroscopy demonstrates the needle in the right hip joint. Patient's pain prior to procedure:5/10. Patient's pain following the procedure: 0/10. IMPRESSION: 1. Successful right hip joint injection of local anesthetic and steroid with decrease in the patient' s presenting pain. Reviewed, dictated and finalized at location A. IMPRESSION: 1. Successful right hip joint injection of local anesthetic and steroid with de crease in the patient's presenting pain.
== END 2024-04-22 13:45 | disposition home or self-care (01) ==
LOC: ANHIMG 13:46
PROVIDERS: PCP Internal Medicine; Visit Provider Internal Medicine
DX: M25.551 Pain in right hip (principal)
CPT/HCPCS: 20610; 77002; J1100; J3301; Q9966

== ENCOUNTER 2024-08-29 13:24 | Outpatient (CLI) | payer MEDICARE, SELFPAY ==
--- NOTE | ~2024-08-29 | MM_ITS ---
EXAMINATION: MM screening tc BI w lee HISTORY: Screening TECHNIQUE: Craniocaudal and mediolateral oblique 3-D tomosynthesis images were obtained and synthetic 2-D images were generated. CAD analysis was submitted and interpreted. COMPARISON: Comparison to multiple prior studies sequentially, with oldest reviewed study dated 07/06. BREAST PARENCHYMAL COMPOSITION: Not dense: There are scattered areas of fibroglandular density. FINDINGS: There is no evidence of suspicious mass, calcification, or architectural distortion to sugg est malignancy in either breast. There has been no suspicious interval change. IMPRESSION: 1. No mammographic evidence of malignancy. 2. Recommend routine screening mammography in one year. BI-RADS Category 1: Negative Reviewed, dictated and finalized at location B. NCT WRITING INSTRUCTOR
== END 2024-08-29 13:25 | disposition home or self-care (01) ==
LOC: CHSIMG 13:26
PROVIDERS: PCP Internal Medicine; Visit Provider Internal Medicine
DX: Z12.31 Encounter for screening mammogram for malignant neoplasm of breast (principal)
CPT/HCPCS: 77063; 77067; 77080

== ENCOUNTER 2024-09-07 09:15 | Outpatient (CLI) | payer MEDICARE, SELFPAY ==
--- NOTE | ~2024-09-07 | DEXA_ITS ---
Bone Density Report Name: MONICA MARINO Age: 69 Sex: Female Ethnicity: White Date of : 1955 Indication: postmenopausal; screening for osteoporosis; hysterectomy; Referring Provider: Yolanda Spicer Study: Bone densitometry was performed. Exam Date: September 07, 2024 Accession number: [id number] Bone Density: Region BMD T-score Z-score Classification AP Spine(L2, L3, L4) 1.142 0.6 2.7 Normal Femoral Neck (Left) 0.919 0.6 2.4 Normal Total Hip (Left) 1.118 1.4 2.9 Normal Femoral Neck (Right) 0.950 0.9 2.7 Normal Total Hip (Right) 1.064 1.0 2.5 Normal Femoral Neck Mean 0.935 0.8 2.5 Normal Total Hip Mean 1.091 1.2 2.7 Normal World Health Organization criteria for BMD impression classify patients as: Normal (T-score at or above -1.0), Osteopenia (T-score between -1.0 and -2.5), or Osteoporosis (T-score at or below -2.5). 10-year Fracture Risk: FRAX not reported because: All T-scores for Spine Total, Hip Total, Femoral Neck at or above -1.0 Previous Exams: Region Exam Age BMD T-score BMD Change BMD Change Date g/cm2 vs Baseline vs Previous Total Hip(Left) 09/07/2024 69 1.118 1.4 0.066 (6.3%)* 0.066 (6.3%)* 06/25/2022 67 1.052 0.9 Total Hip(Right) 09/07/2024 69 1.064 1.0 0.041 (4.0%)* 0.041 (4.0%)* 06/25/2022 67 1.024 0.7 *Denotes significance at 95% confidence level, LSC for Total Hip = 0.027 g/cm2 Clinical Information Provided by Patient: Has used the following medications: Vitamin D, Calcium, multi Has the following medical conditions: Hysterectomy Patient maximum height was 68 Menopause Age: 55 No regular weight bearing exercise Does not regularly consume dairy products Drinks caffeinated beverages Onset of menses at age 13 Number of children 2 Impression: The patient has normal bone mass. No significant bone loss was observed. Discussion: LOW RISK OF FRACTURE; BONE DENSITY IS WELL ABOVE THE MINIMUM DESIRABLE LEVEL AND ABOVE AVERAGE FOR AGE AND SEX AT ALL SKELETAL SITES TESTED. This person's bone density is above expected limits for age and sex. This is rarely clinically significant, but should be pursued if there are significant musculoskeletal complaints. The patient should follow a healthful lifestyle (good nutrition with adequate calcium and vitamin D, and appropriate weight-bearing exercise). Follow-Up: Consider repeating this study in 5 years or sooner if there is some new clinical indication. Reported by: SANDRA on 09/07/2024 9:41:00 AM. Reviewed, dictated and finalized at location A.
== END 2024-09-07 09:16 | disposition home or self-care (01) ==
PROVIDERS: PCP Internal Medicine; Visit Provider Internal Medicine
DX: Z78.0 Asymptomatic menopausal state (principal)
CPT/HCPCS: 77080

== ENCOUNTER 2025-01-10 13:40 | Outpatient (CLI) | payer MEDICARE, SELFPAY ==
[2025-01-10 14:09] LABS: Hematocrit 41.4 % (37.0-47.0); Hemoglobin 12.8 g/dL (12.0-15.0)
[2025-01-10 14:21] LABS: Albumin Level 4.2 g/dL (3.5-5.1); Estimated Glomerular Filt Rate > 60; Glucose 158 mg/dL (65-110)
--- OUTSIDE RECORDS SUMMARY | 2025-01-10 15:06 | XMS_ITS | Encounter Summary ---
Author Organization [facility] Address [address] [place] [address] Care Team Providers Care Trumpet Teacher Name Role Phone Yolanda Spicer MD Primary Care Provider [phone] Yuan Colby MD Unavailable [phone] Gi Monroe MD Unavailable Maurisio Randhawa MD Unavailable [phone] Encounter Details Date Type Department Care Team (Late st Contact Info) Description 01/09/2025 [facility] [address] [place] [phone] [facility] Provider Results Social History Tobacco Use Types Packs/Day Years Used Date Smoking Tobacco: Never Smokeless Tobacco: Never Alcohol Use Standard Drinks/Week Comments Never 0 (1 standard drink = 0.6 oz pur e alcohol) Comments Unknown Sex and Gender Information Value Date Recorded Sex Assigned at Female 01/06/2025 6:36 AM CDT Legal Sex Female 12:20 AM CDT Gender Identity Not on file Sexual Orientation Not on file documented as of this encounter Progress Notes * Gi Monroe MD - 01/09/2025 7:28 PM CDT patient may proceed with her upcoming hip surgery as low to moderate cardiac risk She may hold her Xarelto for 2 to 3 days prior to upcoming surgery resume when okay with the operating physician documented in this encounter Plan of Treatment Upcoming Encounters Date Type Department Care Team (Late st Contact Info) Description 02/07/2025 3:05 AM CDT Allied Health/Nurse Visit [facility] [address] [place] [address] Yuan Colby MD [address] [place] [phone] 05/17/2025 1:45 PM CDT Allied Health/Nurse Visit [place] [address] [place] [address] Yuan Colby MD [address] [place] [id number] 05/17/2025 2:00 PM CDT Office Visit [place] [address] [place] [address] Cora Castle PA-C [address] [place] [address] 01/03/2026 1:15 PM CDT Office Visit [place] [address] [place] [address] iG Monroe MD [address] [place] [phone] documented as of this encounter Visit Diagnoses Not on filedocumented in this encounter Care Teams Trumpet Teacher Relationship Specialty Start Date End Date Yolanda Spicer MD [address] [place] [phone] PCP - General INTERNAL MEDICINE 01/23/20 Yuan Colby MD [address] [place] [address] Consulting Physician CLINICAL CARDIAC ELECTROPHYSIOLOGY 09/24/22 Gi Monroe MD [address] [place] [address] Consulting Physician CARDIOVASCULAR DISEASE 01/21/24 Maurisio Randhawa MD [address] [address] ORTHOPAEDIC SURGERY 12/28/24 documented as of this encounter
--- OUTSIDE RECORDS SUMMARY | 2025-01-10 15:06 | XMS_ITS | Encounter Summary ---
Author Organization [facility] Address [facility] [place] [address] Care Team Providers Care Quilting Machine Helper Name Role Phone Yolanda Spicer MD Primary Care Provider [phone] Yuan Colby MD Unavailable [phone] Gi Monroe MD Unavailable Maurisio Randhawa MD Unavailable [phone] Encounter Details Date Type Department Care Team (Late st Contact Info) Description 10/29/2022 Abstract [facility] [address] [place] [address] Gerard Miller MD [address] [place] [address] Social History Tobacco Use Types Packs/Day Years [...] on file Sexual Orientation Not on file COVID-19 Exposure Response Date Recorded In the last 10 days, have yo u been in contact with someone who was confirmed or suspected to have Coronavirus/COVID-19? No / Unsure 10/08/2022 11:42 AM STUDENT TEACHING COORDINATOR documented as of this encounter Plan of Treatment Upcoming Encounters Date Type Department Care Team (Late st Contact Info) Description 02/07/2025 3:05 AM CDT Allied Health/Nurse Visit [facility] ld [address] [place] [address] Yuan Colby MD [address] [place] [address] 05/17/2025 1:45 PM CDT Allied Health/Nurse Visit [facility] [place] [address] [place] [address] Yuan Colby MD [address] [place] [address] 05/17/2025 2:00 PM CDT Office Visit [place] [address] [place] [address] Cora Castle PA-C [address] [place] [address] 01/03/2026 1:15 PM CDT Office Visit [place] [address] [place] [address] Gi Monroe MD [address] [place] [address] documented as of this encounter Procedures Procedure Name Priority Date/Time Associated Diagnosis Comments CMP (ABSTRACTED LAB) Routine 12/30/2021 T3 FREE (ABSTRACTED) Routine 12/30/2021 TSH (OUTSIDE LAB) Routine 12/30/2021 CBC (OUTSIDE LAB) Routine 12/30/2021 BNP Routine 12/30/2021 LIPID PANEL Routine 12/30/2021 THYROXINE, FREE (FT4) Routine 12/30/2021 documented in this encounter Results * T3 FREE (ABSTRACTED) (12/30/2021) FREE T3 3.4 2.3 - 4.2 12/30/2021 us Default History Genericprovider LAB-OUTSIDE/ABST RACTED Final Result * LIPID PANEL (12/30/2021) Pathologist [facility] NON HDL CHOLESTEROL 115 <130 CHOL/HDL RATIO 3.4 <5.0 12/30/2021 us Default History Genericprovider LABORATORY Final Result * THYROXINE, FREE (FT4) (12/30/2021) FREE T4 1.2 12/30/2021 us Default History Genericprovider LABORATORY Final Result * TSH (OUTSIDE LAB) (12/30/2021) Pathologist [facility] TSH 0.33 0.40 - 4.50 12/30/2021 us Default History Genericprovider LAB-OUTSIDE/ABST RACTED Final Result * BNP (12/30/2021) Pathologist [facility] B TYPE NATRIURETIC PEPTIDE 34 <100 12/30/2021 us Default History Genericprovider LABORATORY Final Result * (ABNORMAL) CMP (ABSTRACTED LAB) (12/30/2021) Pathologist [facility] SODIUM S/P/B 136 135 - 146 POTASSIUM S/P/B 4.2 3.5 - 5.3 CHLORIDE S/P/B 100 98 - 110 CO2 27 20 - 32 BUN 14 7 - 25 CREATININE S/P/B 0.65 0.5 - 0.99 EGFR AFR. AMER. 107(A) <=90 EGFR NON-AFR. AMER. 93(A) <=90 CALCIUM S/P/B 9.5 8.6 - 10.4 GLUCOSE 120 65 - 99 mg/dL TOTAL PROTEIN S/P/B 7.1 6.1 - 8.1 ALBUMIN S/P/B 4.2 3.6 - 5.1 AST 17 10 - 35 ALT 12 6 - 29 ALKALINE PHOSPHATASE S/P/B 97 37 - 153 BILIRUBIN TOTAL S/P/B 0.6 0.2 - 1.2 12/30/2021 us Default History Genericprovider LAB-OUTSIDE/ABST RACTED Final Result * CBC (OUTSIDE LAB) (12/30/2021) WBC 6.9 3.8 - 10.8 HGB 13.3 11.7 - 15.5 HCT 43.0 35.0 - 45.0 PLT 264 140 - 400 RBC 4.86 3.80 - 5.10 12/30/2021 us Default History Genericprovider LAB-OUTSIDE/ABST RACTED Final Result documented in this encounter Visit Diagnoses Not on filedocumented in this encounter Care Teams Quilting Machine Helper Relationship Specialty Start Date End Date oYlanda Spicer MD [address] [place] [address] PCP - General INTERNAL MEDICINE 01/23/20 Yuan Colby MD [address] [place] [address] Consulting Physician CLINICAL CARDIAC ELECTROPHYSIOLOGY 09/24/22 Gi Monroe MD [address] [place] [address] Consulting Physician CARDIOVASCULAR DISEASE 01/21/24 Maurisio Randhawa MD [address] [address] ORTHOPAEDIC SURGERY 12/28/24 documented as of this encounter
--- OUTSIDE RECORDS SUMMARY | 2025-01-10 15:06 | XMS_ITS | Encounter Summary ---
Author Organization [facility] Address [address] [place] [address] Care Team Providers Care Supervising Film Or Videotape Editor Name Role Phone Yolanda Spicer MD Primary Care Provider [phone] Yuan Colby MD Unavailable [phone] Gi Monroe MD Unavailable Maurisio Randhawa MD Unavailable [phone] Encounter Details Date Type Department Care Team (Latest Contact Info) Description 10/23/2023 MyChart Message Enc [facility] [place] [address] Yuan Colby MD [address] [place] [address] Clarify instructions Social History Tobacco Use Types Packs/Day Years [...] on file documented as of this encounter Plan of Treatment Upcoming Encounters Date Type Department Care Team (Late st Contact Info) Description 02/07/2025 3:05 AM CDT [facility] [address] [place] [address] Yuan Colby MD [address] [place], [place] [address] 05/17/2025 1:45 PM CDT Allied Health/Nurse Visit [facility] [address] [place] [address] Yuan Colby MD [address] [place], [place] [address] 05/17/2025 2:00 PM CDT Office Visit [address] [place] [address] Cora Castle PA-C [address] [place], [place] [address] 01/03/2026 1:15 PM CDT Office Visit [address] [place] [address] Gi Monroe MD [address] [place] [address] documented as of this encounter Visit Diagnoses Not on filedocumented in this encounter Care Teams Supervising Film Or Videotape Editor Relationship Specialty Start Date End Date Yolanda Spicer MD [address] [place] [address] PCP - General INTERNAL MEDICINE 01/23/20 Yuan Colby MD [address] [place] [address] Consulting Physician CLINICAL CARDIAC ELECTROPHYSIOLOGY 09/24/22 Gi Monroe MD [address] [place] [address] Consulting Physician CARDIOVASCULAR DISEASE 01/21/24 Maurisio Randhawa MD [address] [address] ORTHOPAEDIC SURGERY 12/28/24 documented as of this encounter
--- OUTSIDE RECORDS SUMMARY | 2025-01-10 15:06 | XMS_ITS | Encounter Summary ---
Author Organization [facility] Address [address] [place] [address] Care Team Providers Care Tar Pot Worker Name Role Phone Yolanda Spicer MD Primary Care Provider [phone] Yuan Colby MD Unavailable [phone] Gi Monroe MD Unavailable Maurisio Randhawa MD Unavailable [phone] Encounter Details Date Type Department Care Team (Late st Contact Info) Description 09/11/2022 Hospital Orders Only [facility] Anesthesia [address] [place] [address] Silvia Collins, RN Anesthesia Record Procedure Summary Procedure Name Responsible Anesthesiologist Anesthesia Start Time Anesthesia Stop Time XA AFLUTTER ABLATION Jose Enciso MD 09/15/22 0731 09/15/22 0921 Events Date Time Event Comment 09/15/2022 0653 0653 AN Anesthesia Prepped 0729 AN TECH INTERN Prepped 0731 An Start Patient ID and consent checked and patient reassessed. 0731 An Start Data 0739 Face Mask Applied 0739 AN Immediate Reassess The pa tient was reevaluated immediately before sedation or regional anesthesia. 0758 Anesthesia Ready 0807 an eladia now 0807 Quick Note Cardiac procedu ralist Dr. Daniels states he will inform anesthesia when to give antibiotic for loop recorder insertion 0912 an stop data 0921 Post Anesthetic Care Handoff I completed my handoff to the receiving nurse during which we: 1. Identified the patient 2. Identified the responsible provider 3. Reviewed the pertinent medical history 4. Discussed the surgical course 5. Reviewed intra-op anesthesia management and issues during anesthesia 6. Set expectations for post-procedure period 7. Allowed opportunity for questions and acknowledgement of understanding. 0921 An Stop Meds * Agents No agents on file. * Blood No blood administrations on file. Lines, Drains, and Airways Type Details Placement Removal Peripheral IV Placement Date: 09/15/22; Placement Time: 0630; Placed Outside of This Facility?: No; Size: 20 G; Orientation: Distal, Left, Posterior; Location: Wrist; Site Prep: Alcohol; Local Anesthetic: None; Inserted By: bren fields rn; Insertion attempts: 1; Ultrasound-guided Placement?: No; Patient Tolerance: Tolerated well; Removal Date: 09/15/22; Removal Time: 1353; Removal Reason: Therapy Completed 09/15/22 0630 by Destini Webster RN 09/15/22 1353 by Josseline Palomares RN Supraglottic Airway Placement Date: 09/15/22; Placement Time: 0750; Airway Device: Oral pharyngeal airway; Removal Date: 09/15/22; Removal Time: 0909 09/15/22 0750 by Angela Constantino CRNA 09/15/22 0909 by Angela Constantino CRNA Peripheral IV Placement Date: 09/15/22; Placement Time: 0752; Size: 18 G; Orientation: Right; Location: Hand; Site Prep: Chlorhexidine; Inserted By: Raj; Insertion attempts: 1; Ultrasound-guided Placement?: No; Patient Tolerance: Tolerated well; Removal Date: 09/15/22; Removal Time: 1353; Removal Reason: Therapy Completed 09/15/22 0752 by Angela Constantino CRNA 09/15/22 1353 by Josseline Palomares RN documented in this encounter Social History Tobacco Use Types Packs/Day Years [...] suspected to have Coronavirus/COVID-19? 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 documented as of this encounter Plan of Treatment Upcoming Encounters Date Type Department Care Team (Late st Contact Info) Description 02/07/2025 3:05 AM CDT Allied Health/Nurse Visit [facility] [address] [place] [address] Yuan Colby MD [address] [place] [address] 05/17/2025 1:45 PM CDT Allied Health/Nurse Visit [place] [address] [place] [address] Yuan Colby MD [address] [place] [address] 05/17/2025 2:00 PM CDT Office Visit [place] [address] [place] [address] Cora Castle PA-C [address] [place] [address] 01/03/2026 1:15 PM CDT Office Visit [facility] [place] [address] [place] [address] Gi Monroe MD [address] [place], [place] [address] documented as of this encounter Visit Diagnoses Not on filedocumented in this encounter Care Teams Tar Pot Worker Relationship Specialty Start Date End Date Yolanda Spicer MD [address] [place] [address] PCP - General INTERNAL MEDICINE 01/23/20 Yuan Colby MD [address] [place] [address] Consulting Physician CLINICAL CARDIAC ELECTROPHYSIOLOGY 09/24/22 Gi Monroe MD [address] [place] [address] Consulting Physician CARDIOVASCULAR DISEASE 01/21/24 Maurisio Randhawa MD [address] [id number] ORTHOPAEDIC SURGERY 12/28/24 documented as of this encounter
--- OUTSIDE RECORDS SUMMARY | 2025-01-10 15:06 | XMS_ITS | Encounter Summary ---
Author Organization [facility] Address [address] [place] [address] Care Team Providers Care Operations And Intelligence Assistant Name Role Phone Yolanda Spicer MD Primary Care Provider [phone] Yuan Colby MD Unavailable [phone] Gi Monroe MD Unavailable Maurisio Randhawa MD Unavailable [phone] Encounter Details Date Type Department Care Team (Late st Contact Info) Description 09/11/2022 Hospital Orders Only [facility] Pre/Post [address] [place] [address] Yuan Colby MD [address] [place] [address] Social History Tobacco Use Types Packs/Day Years [...] Coronavirus/COVID-19? No / Unsure 08/18/2022 2:33 PM WOOD SKI MAKER documented as of this encounter Plan of Treatment Upcoming Encounters Date Type Department Care Team (Late st Contact Info) Description 02/07/2025 3:05 AM CDT Allied Health/Nurse Visit [facility] [address] [place] [address] Yuan Colby MD [address] [place], [place] [address] 05/17/2025 1:45 PM CDT Allied Health/Nurse Visit [place] [address] [place] [address] Yuan Colby MD [address] [place] [address] 05/17/2025 2:00 PM CDT Office Visit [place] [address] [place] [address] Cora Castle PA-C [address] [place], [place] [address] 01/03/2026 1:15 PM CDT Office Visit [place] [address] [place] [address] Gi Monroe MD [address] [place] [address] documented as of this encounter Visit Diagnoses Not on filedocumented in this encounter Care Teams Operations And Intelligence Assistant Relationship Specialty Start Date End Date Yolanda Spicer MD [address] [place] [address] PCP - General INTERNAL MEDICINE 01/23/20 Yuan Colby MD [address] [place] [address] Consulting Physician CLINICAL CARDIAC ELECTROPHYSIOLOGY 09/24/22 Gi Monroe MD [address] [place] [address] Consulting Physician CARDIOVASCULAR DISEASE 01/21/24 Maurisio Randhawa MD [address] [address] ORTHOPAEDIC SURGERY 12/28/24 documented as of this encounter
--- OUTSIDE RECORDS SUMMARY | 2025-01-10 15:06 | XMS_ITS | Encounter Summary ---
Author Organization [facility] Address [facility] [place] [address] Care Team Providers Care Charcoal Burner Beehive Kiln Name Role Phone Yolanda Spicer MD Primary Care Provider [phone] Yuan Colby MD Unavailable [phone] Gi Monroe MD Unavailable Maurisio Randhawa MD Unavailable [phone] Encounter Details Date Type Department Care Team (Late st Contact Info) Description 10/24/2022 [employer] Technology Message [facility] [place] [address] Yuan Colby MD [address] [place] [address] Medication Social History Tobacco Use Types Packs/Day Years [...] Coronavirus/COVID-19? No / Unsure 10/08/2022 11:42 AM MEDICAL TERRITORY MANAGER documented as of this encounter Plan of Treatment Upcoming Encounters Date Type Department Care Team (Late st Contact Info) Description 02/07/2025 3:05 AM CDT Allied Health/Nurse Visit [facility] [address] [place] [address] Yuan Colby MD [address] [place] [address] 05/17/2025 1:45 PM CDT Allied Health/Nurse Visit [facility] [place] [place] [address] Yuan Colby MD [address] [place] [address] 05/17/2025 2:00 PM CDT Office Visit [place] [address] [place] [address] Cora Castle PA-C [address] [place] [address] 01/03/2026 1:15 PM CDT Office Visit [place] [address] [place] [address] Gi Monroe MD [address] [place] [address] documented as of this encounter Visit Diagnoses Not on filedocumented in this encounter Care Teams Charcoal Burner Beehive Kiln Relationship Specialty Start Date End Date Yolanda Spicer MD [address] [place] [address] PCP - General INTERNAL MEDICINE 01/23/20 Yuan Colby MD [facility] [place] [address] Consulting Physician CLINICAL CARDIAC ELECTROPHYSIOLOGY 09/24/22 Gi Monroe MD [address] [place] [address] Consulting Physician CARDIOVASCULAR DISEASE 01/21/24 Maurisio Randhawa MD [address] [address] ORTHOPAEDIC SURGERY 12/28/24 documented as of this encounter
--- OUTSIDE RECORDS SUMMARY | 2025-01-10 15:06 | XMS_ITS | Encounter Summary ---
Author Organization [facility] Address [address] [place] [address] Care Team Providers Care Director Of Events Name Role Phone Yolanda Spicer MD Primary Care Provider [phone] Yuan Colby MD Unavailable [phone] Gi Monroe MD Unavailable Maurisio Randhawa MD Unavailable [phone] Encounter Details Date Type Department Care Team (Late st Contact Info) Description 11/20/2023 Medication Management [facility] [address] [place] [address] Cora Castle PA-C [address] [place] [address] Social History Tobacco Use Types [...] 02/07/2025 3:05 AM CDT Allied Health/Nurse Visit [facility] [address] [place] [address] Yuan Colby MD [address] [place], [place] [address] 05/17/2025 1:45 PM CDT Allied Health/Nurse Visit [facility] [address] [place] [address] Yuan Colby MD [address] [place], [place] [address] 05/17/2025 2:00 PM CDT Office Visit [address] [place] [address] Cora Castle PA-C [address] [place] [address] 01/03/2026 1:15 PM CDT Office Visit [address] [place] [address] Gi Monroe MD [address] [place] [address] documented as of this encounter Visit Diagnoses Not on filedocumented in this encounter Care Teams Director Of Events Relationship Specialty Start Date End Date Yolanda Spicer MD [address] [place] [address] PCP - General INTERNAL MEDICINE 01/23/20 Yuan Colby MD [address] [place] [address] Consulting Physician CLINICAL CARDIAC ELECTROPHYSIOLOGY 09/24/22 Gi Monroe MD [address] [place] [address] [place] [address] Consulting Physician CARDIOVASCULAR DISEASE 01/21/24 Maurisio Randhawa MD [address] [address] ORTHOPAEDIC SURGERY 12/28/24 documented as of this encounter
--- OUTSIDE RECORDS SUMMARY | 2025-01-10 15:06 | XMS_ITS | Encounter Summary ---
Author Organization [facility] Address [address] [place] [address] Care Team Providers Care Customer Care Team Coach Name Role Phone Yolanda Spicer MD Primary Care Provider [phone] Yuan Colby MD Unavailable [phone] Gi Monroe MD Unavailable Maurisio Randhawa MD Unavailable [phone] Encounter Details Date Type Department Care Team (Late st Contact Info) Description 08/05/2022 Abstract [facility] [address] [place] [address] Abstract, Doc Pccl Social History Tobacco Use Types Packs/Day Years [...] suspected to have Coronavirus/COVID-19? No / Unsure 08/08/2022 12:37 PM CDT documented as of this encounter Plan of Treatment Upcoming Encounters Date Type Department Care Team (Late st Contact Info) Description 02/07/2025 3:05 AM CDT [facility] [address] [place] [address] Yuan Colby MD [address] [place] [address] 05/17/2025 1:45 PM CDT Allied Health/Nurse Visit [place] [address] [place] [address] Yuan Colby MD [address] [place] [address] 05/17/2025 2:00 PM CDT Office Visit [place] [address] [place] [address] Cora Castle PA-C [address] [place] [address] 01/03/2026 1:15 PM CDT Office Visit [place] [address] [place] [address] Gi Monroe MD [address] [place] [address] documented as of this encounter Procedures Procedure Name Priority Date/Time Associated Diagnosis Comments LIPID PANEL Routine 07/23/2022 documented in this encounter Results * LIPID PANEL (07/23/2022) CHOLESTEROL 141 <=200 HDL 45 >50 TRIGLYCERIDES 146 <150 NON HDL CHOLESTEROL 96 <130 CHOL/HDL RATIO 3.1 <5.0 LDL (CALCULATED) 73 <=100 07/23/2022 us Default History Genericprovider LABORATORY Final Result documented in this encounter Visit Diagnoses Not on filedocumented in this encounter Care Teams Customer Care Team Coach Relationship Specialty Start Date End Date Yolanda Spicer MD [address] [place] [address] PCP - General INTERNAL MEDICINE 01/23/20 Yuan Colby MD [address] [place] [address] Consulting Physician CLINICAL CARDIAC ELECTROPHYSIOLOGY 09/24/22 Gi Monroe MD [address] [place] [address] Consulting Physician CARDIOVASCULAR DISEASE 01/21/24 Maurisio Randhawa MD [address] [id number] ORTHOPAEDIC SURGERY 12/28/24 documented as of this encounter
--- OUTSIDE RECORDS SUMMARY | 2025-01-10 15:06 | XMS_ITS | Clinical Summary ---
Author Organization [facility] Address [address] [place] [address] Care Team Providers Care Ups Driver Name Role Phone oYlanda Spicer MD Primary Care Provider [phone] Yuan Colby MD Unavailable [phone] Karley Powers MD Unavailable Maurisio Randhawa MD Unavailable [phone] Allergies Active Allergy Reactions Criticality Noted Date Comments Simvastatin Myalgias 03/14/2016 Medications Multiple Vitamin (MULTIVITAMIN) capsule Take 1 tablet by mouth daily. 02/19/2011 Active fish oil 1000 MG Cap capsule Take 1 capsule (1,000 mg total) by mouth 2 (two) times daily. Active vitamin D3, cholecalciferol , 1000 UNIT Tab tablet Take 1 tablet (25 mcg total) by mouth daily. Active metFORMIN ER 500 MG 24 hr tablet Take 1 tablet (500 mg total) by mouth daily. 01/17/2022 Active carvedilol (COREG) 6.25 MG tablet Take 3 tablets (18.75 mg total) by mouth 2 (two) times daily. 11/17/2023 Active rivaroxaban (XARELTO) 20 MG Tab tabletIndicatio ns:Paroxysmal A-fib (CMS/HCC HHS/HCC) Take 1 tablet (20 mg total) by mouth daily with supper. Take with food 30 tablet 11 05/30/2024 Active potassium chloride CR (KLOR-CON M) 10 MEQ tablet Take 1 tablet (10 mEq total) by mouth daily. Active rosuvastatin (CRESTOR) 5 MG tablet TAKE 1 TABLET BY MOUTH EVERYDAY AT BEDTIME 90 tablet 2 08/22/2024 Active omeprazole (PRILOSEC) 20 MG capsule Take 1 capsule (20 mg total) by mouth daily. Active Active Problems Problem Noted Date Diagnosed Date Atrial flutter ([facility]) 03/30/2023 S/P ablation of atrial flutter 03/30/2023 Implantable loop recorder present 03/30/2023 Mild coronary artery disease 02/11/2021 Takotsubo syndrome 02/17/2020 Moderate obstructive sleep apnea 02/17/2020 Atrial fibrillation, unspecified type ([facility] H HS/[facility]) 04/04/2011 Palpitations Mixed hyperlipidemia Essential (primary) hypertension Encounters Date Type Department Care Team Description 01/09/2025 [employer] Message Enc [facility] [address] [place] [address] [facility] Provider Results 01/06/2025 6:37 AM CDT - 01/06/2025 11:59 PM CDT Hospital Encounter [facility] [address] [place] [address] Karley Powers MD Discharge Disposition: Home or Self Care (Routine Discharge) 01/06/2025 Travel 12/28/2024 2:45 PM CDT Office Visit [facility] [address] [place] [address] Karley Powers MD Heart Problem 12/28/2024 Telephone [facility] [address] [place] [address] Karley Powers MD Appointment Request 12/28/2024 Orders Only [facility] [address] [place] [address] Karley Powers MD 12/28/2024 Travel 12/23/2024 1:15 AM CDT Allied Health/Nurse Visit [facility] [address] [place] [address] Yuan Colby MD 12/15/2024 Telephone [facility] [address] [place] [address] Karley Powers MD Reschedule 12/14/2024 Orders Only [facility] [address] [place] [address] Karley Powers MD 11/28/2024 MyChart Message [facility] [place] [address] Karley Powers MD Upcoming surgery 11/08/2024 1:00 AM ENTEROSTOMAL NURSE Allied Health/Nurse Visit [facility] [address] [place] [address] Yuan Colby MD from Last 3 Months Family History Medical History Relation Comments Diabetes Father Heart Disease Father Hypertension Father Cancer Mother Relation Status Comments Brother Father Maternal Grandfather Maternal Grandmother Mother Paternal Grandfather Paternal Grandmother Social History Tobacco Use Types Packs/Day Years [...] on file Sexual Orientation Not on file Last Filed Vital Signs Vital Sign Reading Time Taken Comments Blood Pressure 128/68 12/28/2024 3:06 PM CDT Pulse 52 12/28/2024 3:06 PM CDT ekg Temperature 36.4 C (97.6 F) 09/15/2022 5:00 AM ENTEROSTOMAL NURSE Respiratory Rate 16 12/28/2024 3:06 PM CDT Oxygen Saturation 98% 12/28/2024 3:06 PM CDT Inhaled Oxygen Concentration - - Weight 89.9 kg (198 lb 3.2 oz) 12/28/2024 3:06 P M CDT Height 172.7 cm (5' 8 ) 12/28/2024 3:06 PM CDT Body Mass Index 30.14 12/28/2024 3:06 PM CDT Plan of Treatment Upcoming Encounters Date Type Department Care Team (Late st Contact Info) Description 02/07/2025 3:05 AM CDT Allied Health/Nurse Visit [facility] ld [address] [place] [address] Yuan Colby MD [address] [place] [address] 05/17/2025 1:45 PM CDT Allied Health/N[facility] Visit [facility] [place] [address] [place] [address] Yuan Colby MD [address] [place] [address] 05/17/2025 2:00 PM CDT Office Visit [place] [address] [place] [address] Cora Castle PA-C [address] [place] [address] 01/03/2026 1:15 PM CDT Office Visit [place] [address] [place] [address] Karley Powers MD [address] [place] [address] Health Maintenance Due Date Last Done Comments Colorectal Cancer Screening Colonoscopy (10 Years) 1955 Kidney Health Evaluation 1955 Diabetes: Retinopathy Eye Exam 1973 Hepatitis C 1973 DTaP, Tdap and Td Vaccines (1 - Tdap) 1974 Mammogram Screening 1995 RSV Immunization or 60+ Years (1 - Risk 60-74 years 1-dose series) 2015 Pneumococcal Vaccine: 65+ Years (2 of 2 - PPSV23 or PCV20) 02/01/2016 12/07/2015 Zoster Vaccines (3 of 3) 11/10/2019 09/15/2019, 03/01/2016 Annual Medicare Wellness Visit 2020 Dexa Scan (General) 2020 Hemoglobin A1C 02/02/2023 08/05/2022, 12/20/2020 ASCVD LDL 03/24/2024 03/24/2023, 07/05, 12/20/2020, Additional history exists Lipid Panel 03/24/2024 03/24/2023, 07/05, 12/30/2021, Additional history exists COVID-19 Vaccine ( season) 2024 Meningococcal B Vaccine Aged Out No l onger eligible based on patient's age to complete this topic Meningococcal Vaccine Aged Out No misael elvie eligible based on patient's age to complete this topic RSV Immunizations Under 20 Months Aged Out No longer eligible based on patient's age to complete this topic Medical Devices Implanted Type Area Career Services Representative Device Identifier Shelf Expiration Date Model / Serial / Lot Medtronic Linq Ii-09/15/2022 Implanted:09/2022 by Yuan Colby MD (Quantity not on file) Implantable Loop Recorder [employer] 12/28/2023 [id number] / [id number] / Procedures Procedure Name Priority Date/Time Associated Diagnosis Comments USE ECHOCARDIOGRAM Routine 01/06/2025 7: 19 AM CDT Palpitations ELECTROCARDIOGRAM (NON MIDMARK ACQUIRED) Routine 12/28/2024 3:11 PM CDT Palpitations LIPID PANEL Routine 03/24/2023 Mixed hyperlipidemia HEMOGLOBIN, GLYCOSYLATED Routine 12/20/2020 from Last 3 Months or Most Recently Relevant to Health Maintenance Results * USE ECHOCARDIOGRAM (01/06/2025 7:19 AM CDT) Anatomical Region Laterality Modality Cardiac Ultrasound 01/06/2025 6:52 AM CDT Narrative 01/08/2025 6:32 PM CDT Echocardiography Report Pat.Name: Monica Marino Pat.ID: [id number] .Date: 01/06/2025 Refer.MD: Ibrahima, [facility] Exam Time: 6:52:00 AM Study Type:IBRAHIMA Height: 68 in Weight: 200 lb BSA: 2.04 m2 Age: 9 1955,69Y Sex: F Sonogrphr: Pat. Stat.:Outpatient Reason for Study:Palpitations Procedures: 2D, M-mode, Doppler, Color Flow, Study performed at [place], [place] and interpreted by [facility]. ++++++++++++++++++++++++++++++++++++ SUMMARY: ++++++++++++++++++++++++++++++++++++ The left ventricular size is normal. The calculated ejection fraction is 63%. Left ventricular diastolic function is abnormal (grade 2 - pseudonormal pattern). Wall motion appears normal in all segments. The right ventricular size is normal. Right ventricular systolic function is normal. Inferior vena cava shows >50% collapse with respiration consistent with normal right atrial pressure. Trace mitral regurgitation. A trace of tricuspid regurgitation. Estimated right ventricular systolic pressure is 33 mmHg. ++++++++++++++++++++++++++++++++++++ FINDINGS: ++++++++++++++++++++++++++++++++++++ LV: The left ventricular size is normal. The left ventricular systolic function is normal. The calculated ejection fraction is 63%. Left ventricular diastolic function is abnormal (grade 2 - pseudonormal pattern). WM: Wall motion appears normal in all segments. RV: The right ventricular size is normal. Right ventricular systolic function is normal. IVS: Moderate proximal septal hypertrophy. PVn: The pulmonary vein doppler wave form is normal suggestive of normal left atrial pressures. SVn: Inferior vena cava is normal. Inferior vena cava shows >50% collapse with respiration consistent with normal right atrial pressure. AV: No evidence of aortic valve stenosis. No evidence of aortic regurgitation. The aortic valve not well visualized. MV: Trace mitral regurgitation. No evidence of mitral valve stenosis. PV: Pulmonic valve not well visualized. TV: A trace of tricuspid regurgitation. Estimated right ventricular systolic pressure is 33 mmHg. <Electronic Signature> 01/08/2025 06:32 PM Karley Powers M.D. Procedure Note Karley Powers MD - 01/08/2025 Echocardiography Report Pat.Name: Monica Marino Pat.ID: [id number] .Date: 01/06/2025 Refer.MD: Ibrahima, [facility] Exam Time: 6:52:00 AM Study Type:[facility] Height: 68 in Weight: 200 lb BSA: 2.04 m2 Age: 9 1955,69Y Sex: F Sonogrphr: Pat. Stat.:Outpatient Reason for Study:Palpitations Procedures: 2D, M-mode, Doppler, Color Flow, Study performed at [place], [place] and interpreted by [facility]. ++++++++++++++++++++++++++++++++++++ SUMMARY: ++++++++++++++++++++++++++++++++++++ The left ventricular size is normal. The calculated ejection fraction is 63%. Left ventricular diastolic function is abnormal (grade 2 - pseudonormal pattern). Wall motion appears normal in all segments. The right ventricular size is normal. Right ventricular systolic function is normal. Inferior vena cava shows >50% collapse with respiration consistent with normal right atrial pressure. Trace mitral regurgitation. A trace of tricuspid regurgitation. Estimated right ventricular systolic pressure is 33 mmHg. ++++++++++++++++++++++++++++++++++++ FINDINGS: ++++++++++++++++++++++++++++++++++++ LV: The left ventricular size is normal. The left ventricular systolic function is normal. The calculated ejection fraction is 63%. Left ventricular diastolic function is abnormal (grade 2 - pseudonormal pattern). WM: Wall motion appears normal in all segments. RV: The right ventricular size is normal. Right ventricular systolic function is normal. IVS: Moderate proximal septal hypertrophy. PVn: The pulmonary vein doppler wave form is normal suggestive of normal left atrial pressures. SVn: Inferior vena cava is normal. Inferior vena cava shows >50% collapse with respiration consistent with normal right atrial pressure. AV: No evidence of aortic valve stenosis. No evidence of aortic regurgitation. The aortic valve not well visualized. MV: Trace mitral regurgitation. No evidence of mitral valve stenosis. PV: Pulmonic valve not well visualized. TV: A trace of tricuspid regurgitation. Estimated right ventricular systolic pressure is 33 mmHg. <Electronic Signature> 01/08/2025 06:32 PM Karley Powers M.D. us Karley Powers MD ECHO Final Result * ELECTROCARDIOGRAM (12/28/2024 3:11 PM CDT) 12/28/2024 3:11 PM CDT Narrative [facility] - 12/28/2024 6:01 PM CDT [facility] [address] [place] [address] Test Date: 2024-12-28 Pat Name: MONICA MARINO Department: 105 Room: Gender: Female Ring Spinner: qi : 1955 Requested By: KARLEY POWERS Order Number: [id number] Reading MD: Karley Powers Measurements Intervals [place] Rate: 52 P: -3 [place]: 147 QRS: -19 QRSD: 102 T: 19 QT: 430 QTc: 403 Interpretive Statements SINUS BRADYCARDIA LOW QRS VOLTAGE IN PRECORDIAL LEADS MINIMAL VOLTAGE CRITERIA FOR LVH, CONSIDER NORMAL VARIANT Procedure Note Karley Powers MD - 12/28/2024 [facility] [address] [place] [address] Test Date: 2024-12-28 Pat Name: MONICA MARINO Department: 105 Room: Gender: Female Ring Spinner: qi : 1955 Requested By: KARLEY POWERS Order Number: [id number] Reading MD: Karley Powers Measurements Intervals [place] Rate: 52 P: -3 [place]: 147 QRS: -19 QRSD: 102 T: 19 QT: 430 QTc: 403 Interpretive Statements SINUS BRADYCARDIA LOW QRS VOLTAGE IN PRECORDIAL LEADS MINIMAL VOLTAGE CRITERIA FOR LVH, CONSIDER NORMAL VARIANT us Karley Powers MD PROCEDURES-ORDERABLE NO CHARGE F inal Result [facility] * LIPID PANEL (03/24/2023) CHOLESTEROL 150 <200 HDL 49 >or = 50 TRIGLYCERIDES 172 <150 NON HDL CHOLESTEROL 101 <130 CHOL/HDL RATIO 3.1 <5.0 LDL (CALCULATED) 74 03/24/2023 us Gerard Miller MD LABORATORY Final Resul t * HEMOGLOBIN, GLYCOSYLATED (12/20/2020) HGB A1C 5.6 % 12/20/2020 us Doc [facility] LABORATORY Final Result from Last 3 Months or Most Recently Relevant to Health Maintenance Insurance MEDICARE [employer] Advance Directives * Full Code (Latest Code Status on File) Date Activated Date Inactivated Comments 09/15/2022 9:51 AM 09/15/2022 3:58 PM Care Teams Ups Driver Relationship Specialty Start Date End Date Yolanda Spicer MD [address] [place] [address] PCP - General INTERNAL MEDICINE 01/23/20 Yuan Colby MD [address] [place] [address] Consulting Physician CLINICAL CARDIAC ELECTROPHYSIOLOGY 09/24/22 Karley Powers MD [address] [place] [address] Consulting Physician CARDIOVASCULAR DISEASE 01/21/24 Maurisio Randhawa MD [address] [address] ORTHOPAEDIC SURGERY 12/28/24
== END 2025-01-10 13:41 | disposition home or self-care (01) ==
PROVIDERS: PCP Internal Medicine; Visit Provider Orthopaedic Surgery
DX: M16.11 Unilateral primary osteoarthritis, right hip (principal); R73.03 Prediabetes; E78.5 Hyperlipidemia, unspecified
CPT/HCPCS: 36415; 82040; 82565; 82947; 83036; 85014; 85018

== ENCOUNTER 2025-02-08 14:38 | Outpatient (CLI) | payer MEDICARE, SELFPAY ==
--- NOTE | ~2025-02-08 | XR_ITS ---
EXAMINATION: XR chest 2V DATE: 02/08/2025 15:00 INDICATION: Shortness of breath. Upper respiratory tract infection. TECHNIQUE: PA and lateral views of the chest were obtained. COMPARISON: Chest radiograph dated 08/01/2023 FINDINGS: The lungs remain clear with no focal airspace opacities, pulmonary edema, pleural effusion or pneumot horax. The cardiomediastinal silhouette is normal. Plateau site monitor activity upper inner quadr ant of the left breast. IMPRESSION: 1. No acute cardiopulmonary disease. Reviewed, dictated and finalized at location A.
--- OUTSIDE RECORDS SUMMARY | 2025-02-08 14:43 | XMS_ITS | Encounter Summary ---
Author Organization [facility] Address [address] [place] [address] Care Team Providers Care Patrol Agent Name Role Phone Yolanda Spicer MD Primary Care Provider [phone] Yuan Colby MD Unavailable [phone] Gi [place] MD Unavailable Maurisio Randhawa MD Unavailable [phone] Encounter Details Date Type Department Care Team (Late st Contact Info) Description 01/09/2025 HEALTH [employer]ARE [employer] Message Enc [facility] [address] [place] [address] [facility] Provider Results Social History Tobacco Use Types [...] Care Team (Late st Contact Info) Description 03/16/2025 1:15 AM CDT Allied Health/Nurse Visit [facility] [address] [place] [address] Yuan [place] MD [address] [place] [address] 05/17/2025 1:45 PM CDT Allied Health/Nurse Visit [place] [address] [place] [address] Yuan Colby MD [address] [place] [address] 05/17/2025 2:00 PM CDT Office Visit [place] [address] [place] [address] Cora Castle PA-C [address] [place] [address] 01/03/2026 1:15 PM CDT Office Visit [place] [address] [place] [address] Gi [place] MD [address] [place] [address] documented as of this encounter Visit Diagnoses Not on filedocumented in this encounter Care Teams Patrol Agent Relationship Specialty Start Date End Date Yolanda Spicer MD [address] [place] [phone] PCP - General INTERNAL MEDICINE 01/23/20 Yuan Colby MD [address] [place] [address] Consulting Physician CLINICAL CARDIAC ELECTROPHYSIOLOGY 09/24/22 Gi [place] MD [address] [place] [address] Consulting Physician CARDIOVASCULAR DISEASE 01/21/24 Maurisio Randhawa MD [address] [address] ORTHOPAEDIC SURGERY 12/28/24 documented as of this encounter
--- OUTSIDE RECORDS SUMMARY | 2025-02-08 14:44 | XMS_ITS | Encounter Summary ---
Author Organization [facility] Address [address] [place] [address] Care Team Providers Care Clothing Sorter Name Role Phone Yolanda Spicer MD Primary Care Provider [phone] Yuan Colby MD Unavailable [phone] Gi [place] MD Unavailable Maurisio Randhawa MD Unavailable [phone] Encounter Details Date Type Department Care Team (Latest Contact Info) Description 10/23/2023 MyChart Message Enc [facility] [place] [address] Yuan [place]by MD [address] [place] [address] Clarify instructions Social History Tobacco [...] 03/16/2025 1:15 AM CDT [facility] [address] [place] [address] Yuan [place] MD [address] [place], [place] [address] 05/17/2025 1:45 PM CDT Allied [facility] Visit [facility] [address] [place] [address] Yuan Colby MD [address] [place], [place] [address] 05/17/2025 2:00 PM CDT Office Visit [address] [place] [address] Cora Castle PA-C [address] [place], [place] [address] 01/03/2026 1:15 PM CDT Office Visit [address] [place] [address] Gi [place] MD [address] [place] [address] documented as of this encounter Visit Diagnoses Not on filedocumented in this encounter Care Teams Clothing Sorter Relationship Specialty Start Date End Date Yolanda Spicer MD [address] [place] [address] PCP - General INTERNAL MEDICINE 01/23/20 Yuan Colby MD [address] [place] [address] Consulting Physician CLINICAL CARDIAC ELECTROPHYSIOLOGY 09/24/22 Gi [place] MD [address] [place] [address] Consulting Physician CARDIOVASCULAR DISEASE 01/21/24 Maurisio Randhawa MD [address] [address] ORTHOPAEDIC SURGERY 12/28/24 documented as of this encounter
--- OUTSIDE RECORDS SUMMARY | 2025-02-08 14:44 | XMS_ITS | Encounter Summary ---
Author Organization [facility] Address [facility] [place] [address] Care Team Providers Care Targeting Acquisition Officer Name Role Phone Yolanda Spicer MD Primary Care Provider [phone] Yuan [place] MD Unavailable [phone] Gi [place] MD Unavailable Maurisio Randhawa MD Unavailable [phone] Encounter Details Date Type Department Care Team (Late st Contact Info) Description 10/29/2022 Abstract [facility] [address] [place] [address] Gerard Miller MD [address] [place] [address] Social History Tobacco Use Types Packs/Day Years [...] Coronavirus/COVID-19? No / Unsure 10/08/2022 11:42 AM AUTO TRANSMISSION TECHNICIAN documented as of this encounter Plan of Treatment Upcoming Encounters Date Type Department Care Team (Late st Contact Info) Description 03/16/2025 1:15 AM CDT Allied Health/Nurse Visit [facility] [address] [place] [address] Yuan [place] MD [address] [place] [address] 05/17/2025 1:45 PM CDT Allied Health/Nurse Visit [facility] [place] [address] [place] [address] Yuan [place] MD [address] [place] [address] 05/17/2025 2:00 PM CDT Office Visit [place] [address] [place] [address] Cora Castle PA-C [address] [place] [address] 01/03/2026 1:15 PM CDT Office Visit [place] [address] [place] [address] Gi [place] MD [address] [place] [address] documented as of this encounter Procedures Procedure [...] Result * LIPID PANEL (12/30/2021) Pathologist [facility] NON HDL CHOLESTEROL 115 <130 CHOL/HDL RATIO 3.4 <5.0 12/30/2021 us Default History Genericprovider LABORATORY Final Result * THYROXINE, FREE (FT4) (12/30/2021) FREE T4 1.2 12/30/2021 us Default History Genericprovider LABORATORY Final Result * TSH (OUTSIDE LAB) (12/30/2021) Pathologist [facility] TSH 0.33 0.40 - 4.50 12/30/2021 us Default History Genericprovider LAB-OUTSIDE/ABST RACTED Final Result * BNP (12/30/2021) Pathologist [facility] B TYPE NATRIURETIC PEPTIDE 34 <100 12/30/2021 us Default History Genericprovider LABORATORY Final Result * (ABNORMAL) CMP (ABSTRACTED LAB) (12/30/2021) Pathologist [facility] SODIUM S/P/B 136 135 - 146 POTASSIUM [...] on filedocumented in this encounter Care Teams Targeting Acquisition Officer Relationship Specialty Start Date End Date Yolanda [place] MD [address] [place] [address] PCP - General INTERNAL MEDICINE 01/23/20 Yuan [place]by MD [address] [place] [address] Consulting Physician CLINICAL CARDIAC ELECTROPHYSIOLOGY 09/24/22 Gi [place] MD [address] [place] [address] Consulting Physician CARDIOVASCULAR DISEASE 01/21/24 Maurisio Randhawa MD [address] [address] ORTHOPAEDIC SURGERY 12/28/24 documented as of this encounter
--- OUTSIDE RECORDS SUMMARY | 2025-02-08 14:44 | XMS_ITS | Encounter Summary ---
Author Organization [facility] Address [address] [place] [address] Care Team Providers Care Mop Worker Name Role Phone Yolanda Sp[place] MD Primary Care Provider [phone] Yuan [place] MD Unavailable [phone] Gi [place] MD Unavailable Maurisio Randhawa MD Unavailable [phone] Encounter Details Date Type Department Care Team (Late st Contact Info) Description 08/05/2022 Abstract [facility] [address] [place] [address] Abstract, Doc Pccl Social History Tobacco Use [...] 03/16/2025 1:15 AM CDT Allied Health/Nurse Visit [facility] [address] [place] [address] Yuan [place] MD [address] [place] [address] 05/17/2025 1:45 PM CDT Allied Health/Nurse Visit [place] [address] [place] [address] Yuan [place] MD [address] [place] [address] 05/17/2025 2:00 PM CDT Office Visit [place] [address] [place] [address] Cora Castle PA-C [address] [place] [address] 01/03/2026 1:15 PM CDT Office Visit [place] [address] [place] [address] Gi [place] MD [address] [place] [address] documented as of this encounter Procedures Procedure [...] on filedocumented in this encounter Care Teams Mop Worker Relationship Specialty Start Date End Date Yolanda Spicer MD [address] [place] [address] PCP - General INTERNAL MEDICINE 01/23/20 Yuan [place] MD [address] [place] [address] Consulting Physician CLINICAL CARDIAC ELECTROPHYSIOLOGY 09/24/22 Gi [place] MD [address] [place] [address] Consulting Physician CARDIOVASCULAR DISEASE 01/21/24 Maurisio Randhawa MD [address] [id number] ORTHOPAEDIC SURGERY 12/28/24 documented as of this encounter
--- OUTSIDE RECORDS SUMMARY | 2025-02-08 14:44 | XMS_ITS | Encounter Summary ---
Author Organization [facility] Address [address] [place] [address] Care Team Providers Care General Administrator Name Role Phone Yolanda [place] MD Primary Care Provider [phone] Yuan [place] MD Unavailable [phone] Gi [place] MD Unavailable Maurisio Randhawa MD Unavailable [phone] Encounter Details Date Type Department Care Team (Late st Contact Info) Description 11/20/2023 Medication Management [facility] [address] [place] [address] Cora Castle PA-C [address] [place] [address] Social History Tobacco Use Types [...] 03/16/2025 1:15 AM CDT Allied Health/Nurse Visit [facility] [address] [place] [address] Yuan [place] MD [address] [place], [place] [address] 05/17/2025 1:45 PM CDT Allied [facility]/Nurse Visit [facility] [address] [place] [address] Yuan [place] MD [address] [place], [place] [address] 05/17/2025 2:00 PM CDT Office Visit [address] [place] [address] Cora Castle PA-C [address] [place] [address] 01/03/2026 1:15 PM CDT Office Visit [address] [place] [address] Gi [place] MD [address] [place] [address] documented as of this encounter Visit Diagnoses Not on filedocumented in this encounter Care Teams General Administrator Relationship Specialty Start Date End Date Yolanda [place] MD [address] [place] [address] PCP - General INTERNAL MEDICINE 01/23/20 Yuan [place] MD [address] [place] [address] Consulting Physician CLINICAL CARDIAC ELECTROPHYSIOLOGY 09/24/22 Gi [place] MD [address] [place] [address] [place] [address] Consulting Physician CARDIOVASCULAR DISEASE 01/21/24 Maurisio Randhawa MD [address] [address] ORTHOPAEDIC SURGERY 12/28/24 documented as of this encounter
--- OUTSIDE RECORDS SUMMARY | 2025-02-08 14:44 | XMS_ITS | Encounter Summary ---
Author Organization [facility] Address [address] [place] [address] Care Team Providers Care Global Compensation Director Name Role Phone Yolanda Spicer MD Primary Care Provider [phone] Yuan Colby MD Unavailable [phone] Gi Monroe MD Unavailable Maurisio Randhawa MD Unavailable [phone] Encounter Details Date Type Department Care Team (Late st Contact Info) Description 02/07/2025 3:05 AM CDT Allied Health/Nurse Visit [facility] field [address] [place] [address] Yuan Colby MD [address] [place] [address] Social History Tobacco Use Types [...] 03/16/2025 1:15 AM CDT Allied Health/Nurse Visit [facility] ld [address] [place] [address] Yuan Colby MD [address] [place], [place] [address] 05/17/2025 1:45 PM CDT Allied Health/Nurse Visit [facility] [address] [place] [address] Yuan Colby MD [address] [place], [place] [address] 05/17/2025 2:00 PM CDT Office Visit [address] [place] [address] Cora Castle PA-C [address] [place] [address] 01/03/2026 1:15 PM CDT Office Visit [address] [place] [address] Gi Monroe MD [address] [place] [address] documented as of this encounter Visit Diagnoses Diagnosis Atrial fibrillation, unspecified type ([facility])- Primary Implantable loop recorder present documented in this encounter Care Teams Global Compensation Director Relationship Specialty Start Date End Date Yolanda Spicer MD [address] [place] [address] PCP - General INTERNAL MEDICINE 01/23/20 Yuan Colby MD [address] [place] [address] Consulting Physician CLINICAL CARDIAC ELECTROPHYSIOLOGY 09/24/22 Gi Monroe MD [address] [place] [address] Consulting Physician CARDIOVASCULAR DISEASE 01/21/24 Maurisio Randhawa MD [address] [id number] ORTHOPAEDIC SURGERY 12/28/24 documented as of this encounter
--- OUTSIDE RECORDS SUMMARY | 2025-02-08 14:44 | XMS_ITS | Encounter Summary ---
Author Organization [facility] Address [address] [place] [address] Care Team Providers Care Quality Systems Engineer Name Role Phone Yolanda Spicer MD Primary Care Provider [phone] Yuan Colby MD Unavailable [phone] Gi Monroe MD Unavailable Maurisio Randhawa MD Unavailable [phone] Encounter Details Date Type Department Care Team (Late st Contact Info) Description 09/11/2022 Hospital Orders Only [facility] Anesthesia [address] [place] [address] Silvia Collins, RN Anesthesia Record Procedure Summary Procedure Name Responsible Anesthesiologist Anesthesia Start Time Anesthesia Stop Time XA AFLUTTER ABLATION Jose Enciso MD 09/15/22 0731 09/15/22 0921 Events Date Time Event Comment 09/15/2022 0653 0653 AN Anesthesia Prepped 0729 AN SENIOR BUSINESS ARCHITECT Prepped 0731 An Start Patient ID and [...] Coronavirus/COVID-19? No / Unsure 08/18/2022 2:33 PM SSRS DEVELOPER documented as of this encounter Plan of Treatment Upcoming Encounters Date Type Department Care Team (Late st Contact Info) Description 03/16/2025 1:15 AM CDT Allied Health/Nurse Visit [facility] [address] [place] [address] Yuan Colby MD [address] [place] [address] 05/17/2025 1:45 PM CDT Allied Health/Nurse Visit [facility] [address] [place] [address] Yuan Colby MD [address] [place] [address] 05/17/2025 2:00 PM CDT Office Visit [place] [address] [place] [address] Cora Castle PA-C [address] [place] [address] 01/03/2026 1:15 PM CDT Office Visit [facility] [address] [place] [address] Gi Monroe MD [address] [place] [address] documented as of this encounter Visit Diagnoses Not on filedocumented in this encounter Care Teams Quality Systems Engineer Relationship Specialty Start Date End Date Yolanda Spicer MD [address] [place] [address] PCP - General INTERNAL MEDICINE 01/23/20 Yuan Colby MD [address] [place] [address] Consulting Physician CLINICAL CARDIAC ELECTROPHYSIOLOGY 09/24/22 Gi Monroe MD [address] [place] [address] Consulting Physician CARDIOVASCULAR DISEASE 01/21/24 Maurisio Randhawa MD [address] [id number] ORTHOPAEDIC SURGERY 12/28/24 documented as of this encounter
--- OUTSIDE RECORDS SUMMARY | 2025-02-08 14:44 | XMS_ITS | Encounter Summary ---
Author Organization [facility] Address [facility] [place] [address] Care Team Providers Care Vascular Neurologist Name Role Phone Yolanda Spicer MD Primary Care Provider [phone] Yuan Colby MD Unavailable [phone] Gi Monroe MD Unavailable Maurisio Randhawa MD Unavailable [phone] Encounter Details Date Type Department Care Team (Late st Contact Info) Description 10/24/2022 Big[employer] Message [facility] [place] [address] Yuan Colby MD [address] [place] [address] Medication Social History Tobacco Use [...] Coronavirus/COVID-19? No / Unsure 10/08/2022 11:42 AM NATIONAL BUSINESS DIRECTOR documented as of this encounter Plan of Treatment Upcoming Encounters Date Type Department Care Team (Late st Contact Info) Description 03/16/2025 1:15 AM CDT Allied Health/Nurse Visit [facility] [address] [place] [address] Yuan Colby MD [address] [place], [place] [address] 05/17/2025 1:45 PM CDT Allied Health/Nurse Visit [facility] [place] [address] [place] [address] Yuan Colby MD [address] [place] [address] 05/17/2025 2:00 PM CDT Office Visit [place] [address] [place] [address] Cora Castle PA-C [address] [place] [address] 01/03/2026 1:15 PM CDT Office Visit [place] [address] [place] [address] Gi Monroe MD [address] [place] [address] documented as of this encounter Visit Diagnoses Not on filedocumented in this encounter Care Teams Vascular Neurologist Relationship Specialty Start Date End Date Yolanda Spicer MD [address] [place] [address] PCP - General INTERNAL MEDICINE 01/23/20 Yuan Colby MD [facility] [place] [address] Consulting Physician CLINICAL CARDIAC ELECTROPHYSIOLOGY 09/24/22 Gi Monroe MD [address] [place] [address] Consulting Physician CARDIOVASCULAR DISEASE 01/21/24 Maurisio Randhawa MD [address] [address] ORTHOPAEDIC SURGERY 12/28/24 documented as of this encounter
--- OUTSIDE RECORDS SUMMARY | 2025-02-08 14:44 | XMS_ITS | Clinical Summary ---
Author Organization [facility] Address [address] [place] [address] Care Team Providers Care Middle School Resource Teacher Name Role Phone Yolanda Spicer MD Primary Care Provider [phone] Yuan Colby MD Unavailable [phone] Karley Powers MD Unavailable Maurisio Randhawa MD Unavailable [phone] Allergies Active Allergy Reactions Criticality Noted Date [...] Problem Noted Date Diagnosed Date Atrial flutter ([facility] 03/30/2023 S/P ablation of atrial flutter 03/30/2023 Implantable loop recorder present 03/30/2023 Mild coronary artery disease 02/11/2021 Takotsubo syndrome 02/17/2020 Moderate obstructive sleep apnea 02/17/2020 Atrial fibrillation, unspecified type ([facility]) 04/04/2011 Palpitations Mixed hyperlipidemia Essential (primary) hypertension Encounters Date Type Department Care Team Description 02/07/2025 3:05 AM CDT Allied Health/Nurse Visit [facility] [address] [place] [address] Yuan Colby MD 01/09/2025 [employer] Message Enc [facility] [address] [place] [address] [facility] Provider Results 01/06/2025 6:37 AM CDT - 01/06/2025 11:59 PM CDT Hospital Encounter [facility] [address] [place] [address] Karley Powers MD Discharge Disposition: Home or Self Care (Routine Discharge) 01/06/2025 Travel 12/28/2024 2:45 PM CDT Office Visit [facility] [address] [place] [address] Karley Powers MD Heart Problem 12/28/2024 Telephone [facility] [address] [place] [address] Karley Powers MD Appointment Request 12/28/2024 Orders Only [facility] [address] [place] [address] Karley Powers MD 12/28/2024 Travel 12/23/2024 1:15 AM CDT Allied Health/Nurse Visit [facility] [address] [place] [address] Yuan Colby MD 12/15/2024 Telephone [facility] [address] [place] [address] Karley Powers MD Reschedule 12/14/2024 Orders Only [facility] [address] [place] [address] Karley Powers MD 11/28/2024 MyChart Message [facility] [place] [address] Karley Powers MD Upcoming surgery from Last 3 Months Family History Medical [...] 36.4 C (97.6 F) 09/15/2022 5:00 AM MANAGING COGNITIVE ENGINEER Respiratory Rate 16 12/28/2024 3:06 PM CDT [...] 03/16/2025 1:15 AM CDT Allied Health/Nurse Visit [facility] ld [address] [place] [address] Yuan Colby MD [address] [place] [address] 05/17/2025 1:45 PM CDT Allied Health/Nurse Visit [facility] [place] [address] [place] [address] Yuan Colby MD [address] [place] [address] 05/17/2025 2:00 PM CDT Office Visit [place] [address] [place] [address] Cora Castle PA-C [address] [place] [address] 01/03/2026 1:15 PM CDT Office Visit [place] [address] [address] [place] [address] Karley Powers MD [address] [place] [address] Health Maintenance Due Date Last Done Comments Colorectal Cancer Screening Colonoscopy (10 Years) 1955 Kidney Health Evaluation 1955 Diabetes: Retinopathy Eye Exam 1973 Hepatitis C 1973 DTaP, Tdap and Td Vaccines (1 - Tdap) 1974 Mammogram Screening 1995 RSV Immunization or 60+ Years (1 - Risk 60-74 years 1-dose series) 2015 Pneumococcal Vaccine: 50+ Years (2 of 2 - PPSV23) 02/01/2016 12/07/2015 Zoster Vaccines (3 of 3) [...] this topic Medical Devices Implanted Type Area Cemetery Keeper Device Identifier Shelf Expiration Date Model / Serial / Lot Medtronic Linq Ii-09/15/2022 Implanted:09/2022 by Yuan Colby MD (Quantity not on file) Implantable Loop Recorder [employer] 12/28/2023 [id number] / [id number] / Procedures Procedure Name Priority Date/Time Associated [...] CDT Echocardiography Report Pat.Name: Monica Marino Pat.ID: [id number] .Date: 01/06/2025 Refer.MD: Ibrahima, [facility] Exam Time: 6:52:00 AM Study Type:IBRAHIMA Height: 68 in Weight: 200 lb BSA: 2.04 m2 Age: 9 1955,69Y Sex: F Sonogrphr: Pat. Stat.:Outpatient Reason for Study:Palpitations Procedures: 2D, M-mode, Doppler, Color Flow, Study performed at [place], [place] and interpreted by [facility]. ++++++++++++++++++++++++++++++++++++ SUMMARY: ++++++++++++++++++++++++++++++++++++ The left [...] 01/08/2025 Echocardiography Report Pat.Name: Monica Marino Pat.ID: [id number] .Date: 01/06/2025 Refer.MD: Ibrahmia, [facility] Exam Time: 6:52:00 AM Study Type:[facility] Height: 68 in Weight: 200 lb BSA: 2.04 m2 Age: 9 1955,69Y Sex: F Sonogrphr: Pat. Stat.:Outpatient Reason for Study:Palpitations Procedures: 2D, M-mode, Doppler, Color Flow, Study performed at [place], [place] and interpreted by [facility]. ++++++++++++++++++++++++++++++++++++ SUMMARY: ++++++++++++++++++++++++++++++++++++ The left [...] PM CDT) 12/28/2024 3:11 PM CDT Narrative [facility] - 12/28/2024 6:01 PM CDT [facility] [address] [place] [address] Test Date: 2024-12-28 Pat Name: MONICA MARINO Department: 105 Room: Gender: Female Program Manufacturing Leader: qi : 1955 Requested By: KARLEY POWERS Order Number: [id number] Reading MD: Karley Powers Measurements Intervals [place] Rate: 52 P: -3 [place]: 147 QRS: -19 QRSD: 102 T: 19 QT: 430 QTc: 403 Interpretive Statements SINUS BRADYCARDIA LOW QRS VOLTAGE IN PRECORDIAL LEADS MINIMAL VOLTAGE CRITERIA FOR LVH, CONSIDER NORMAL VARIANT Procedure Note Karley Powers MD - 12/28/2024 [facility] [address] [place] [address] Test Date: 2024-12-28 Pat Name: MONICA MARINO Department: 105 Room: Gender: Female Program Manufacturing Leader: qi : 1955 Requested By: KARLEY POWERS Order Number: [id number] Reading MD: Karley Powers Measurements Intervals [place] Rate: 52 P: -3 [place]: 147 QRS: -19 QRSD: 102 T: 19 QT: 430 QTc: 403 Interpretive Statements SINUS BRADYCARDIA LOW QRS VOLTAGE IN PRECORDIAL LEADS MINIMAL VOLTAGE CRITERIA FOR LVH, CONSIDER NORMAL VARIANT us Karley Powers MD PROCEDURES-ORDERABLE NO CHARGE F inal Result [facility] CARDIOVASCULAR * LIPID PANEL (03/24/2023) CHOLESTEROL 150 [...] Recently Relevant to Health Maintenance Insurance MEDICARE [facility]UR[employer] Advance Directives * Full Code (Latest Code Status on File) Date Activated Date Inactivated Comments 09/15/2022 9:51 AM 09/15/2022 3:58 PM Care Teams Middle School Resource Teacher Relationship Specialty Start Date End Date Yolanda Spicer MD [address] [place] [address] PCP - General INTERNAL MEDICINE 01/23/20 Yuan Colby MD [address] [place] [address] Consulting Physician CLINICAL CARDIAC ELECTROPHYSIOLOGY 09/24/22 Karley Powers MD [address] [place] [address] Consulting Physician CARDIOVASCULAR DISEASE 01/21/24 Maurisio Randhawa MD [address] [address] ORTHOPAEDIC SURGERY 12/28/24
--- OUTSIDE RECORDS SUMMARY | 2025-02-08 14:44 | XMS_ITS | Encounter Summary ---
Author Organization [facility] Address [address] [place] [address] Care Team Providers Care Ride Assembly Supervisor Name Role Phone Yolanda Spicer MD Primary Care Provider [phone] Yuan Colby MD Unavailable [phone] Gi Monroe MD Unavailable Maurisio Randhawa MD Unavailable [phone] Encounter Details Date Type Department Care Team (Late st Contact Info) Description 09/11/2022 Hospital Orders Only [facility] Pre/Post [address] [place] [address] Yuan Colby MD [address] [place] [address] Social History Tobacco Use Types [...] Coronavirus/COVID-19? No / Unsure 08/18/2022 2:33 PM SOLID WASTE FACILITY SUPERVISOR documented as of this encounter Plan of Treatment Upcoming Encounters Date Type Department Care Team (Late st Contact Info) Description 03/16/2025 1:15 AM CDT Allied Health/Nurse Visit [facility] [address] [place] [address] Yuan Colby MD [address] [place], [place] [address] 05/17/2025 1:45 PM CDT Allied Health/Nurse Visit [place] [address] [place] [address] Yuan Colby MD [address] [place] [address] 05/17/2025 2:00 PM CDT Office Visit [place] [address] [place] [address] Cora Castle PA-C [address] [place], [place] [address] 01/03/2026 1:15 PM CDT Office Visit [place] [address] [place] [address] Gi Monroe MD [address] [place] [address] documented as of this encounter Visit Diagnoses Not on filedocumented in this encounter Care Teams Ride Assembly Supervisor Relationship Specialty Start Date End Date Yolanda Spicer MD [address] [place] [address] PCP - General INTERNAL MEDICINE 01/23/20 Yuan Colby MD [address] [place] [address] Consulting Physician CLINICAL CARDIAC ELECTROPHYSIOLOGY 09/24/22 Gi Monroe MD [address] [place] [address] Consulting Physician CARDIOVASCULAR DISEASE 01/21/24 Maurisio Randhawa MD [address] [address] ORTHOPAEDIC SURGERY 12/28/24 documented as of this encounter
[2025-02-08 14:57] LABS: Hematocrit 41.1 % (35.0-42.0); Hemoglobin 12.5 g/dL (11.7-13.8); Mean Corpuscular HGB Conc 30.4 g/dL (32-36); Mean Corpuscular Hemoglobin 27.1 pg (27.0-31.0); Mean Platelet Volume 10.3 fl (9.2-11.8); Platelet Count Result 226 K/mm3 (150-420); Red Blood Count 4.62 M/mm3 (4.20-5.40)
[2025-02-08 15:36] LABS: RSV RNA, RT-PCR Positive (Negative)
== END 2025-02-08 14:39 | disposition home or self-care (01) ==
LOC: CHSLAB 14:40
PROVIDERS: PCP Internal Medicine; Visit Provider Internal Medicine
DX: J06.9 Acute upper respiratory infection, unspecified (principal)
CPT/HCPCS: 36415; 71046; 85027; 87634

== ENCOUNTER 2025-04-14 11:59 | Outpatient (CLI) | payer MEDICARE, SELFPAY ==
--- OUTSIDE RECORDS SUMMARY | 2025-04-14 12:05 | XMS_ITS | Encounter Summary ---
Author Organization [facility] Address [address] [place] [address] Care Team Providers Care Insulation Worker Name Role Phone Yolanda Spicer MD Primary Care Provider [phone] Yuan Colby MD Unavailable [phone] Gi Monroe MD Unavailable Maurisio Randhawa MD Unavailable [phone] Cora Castle PA-C Unavailable [phone] Encounter Details Date Type Department Care Team (Late st Contact Info) Description 10/29/2022 Abstract [facility] [address] [place] [address] Gerard Miller MD [address] [place] [address] Social History Tobacco Use Types Packs/Day Years [...] Coronavirus/COVID-19? No / Unsure 10/08/2022 11:42 AM MANAGER OF APPLICATIONS DEVELOPMENT documented as of this encounter Plan of Treatment Upcoming Encounters Date Type Department Care Team (Late st Contact Info) Description 04/27/2025 2:00 AM CDT Allied Health/Nurse Visit [facility] [address] [place] [address] Yuan Colby MD [address] [place] [address] 05/17/2025 1:45 PM CDT Allied Health/Nurse Visit [place] [address] [place] [address] Yuan Colby MD [address] [place] [address] 05/17/2025 2:00 PM CDT Office Visit [place] [address] [address] [place] [address] Cora Castle PA-C [address] [place] [address] 01/03/2026 1:15 PM CDT Office Visit [place] [address] [place] [address] Gi Monroe MD [address] [place] [address] documented as of this encounter Procedures Procedure Name Priority Date/Time Associated Diagnosis Comments CMP (ABSTRACTED LAB) Routine 12/30/2021 T3 FREE (ABSTRACTED) Routine 12/30/2021 TSH (OUTSIDE LAB) Routine 12/30/2021 CBC (OUTSIDE LAB) Routine 12/30/2021 BNP Routine 12/30/2021 LIPID PANEL Routine 12/30/2021 THYROXINE, FREE (FT4) Routine 12/30/2021 documented in this encounter Results * T3 FREE (ABSTRACTED) (12/30/2021) [facility] FREE T3 3.4 2.3 - 4.2 12/30/2021 us Default History Genericprovider LAB-OUTSIDE/ABST RACTED Final Result * LIPID PANEL (12/30/2021) [facility] NON HDL CHOLESTEROL 115 <130 CHOL/HDL RATIO 3.4 <5.0 12/30/2021 Default History Genericprovider LABORATORY Final Result * THYROXINE, FREE (FT4) (12/30/2021) [facility] T4 1.2 12/30/2021 Default History Genericprovider LABORATORY Final Result * TSH (OUTSIDE LAB) (12/30/2021) [facility] TSH 0.33 0.40 - 4.50 12/30/2021 Default History Genericprovider LAB-OUTSIDE/ABST RACTED Final Result * BNP (12/30/2021) [facility] B TYPE NATRIURETIC PEPTIDE 34 <100 12/30/2021 Default History Genericprovider LABORATORY Final Result * (ABNORMAL) CMP (ABSTRACTED LAB) (12/30/2021) SODIUM S/P/B 136 135 - 146 POTASSIUM [...] on filedocumented in this encounter Care Teams Insulation Worker Relationship Specialty Start Date End Date Yolanda Spicer MD [address] [place] [address] PCP - General INTERNAL MEDICINE 01/23/20 Yuan Colby MD [address] [place] [address] Consulting Physician CLINICAL CARDIAC ELECTROPHYSIOLOGY 09/24/22 Gi Monroe MD [address] [place] [address] Consulting Physician CARDIOVASCULAR DISEASE 01/21/24 Maurisio Randhawa MD [address] [id number] ORTHOPAEDIC SURGERY 12/28/24 Cora Castle PA-C [address] [place] [address] Referring Physician PHYSICIAN INSERTER 04/04/25 documented as of this encounter
--- OUTSIDE RECORDS SUMMARY | 2025-04-14 12:05 | XMS_ITS | Encounter Summary ---
Author Organization [facility] Address [address] [place] [address] Care Team Providers Care Sap Gatherer Name Role Phone Yolanda Spicer MD Primary Care Provider [phone] Yuan Colby MD Unavailable [phone] Gi Monroe MD Unavailable Maurisio Randhawa MD Unavailable [phone] Cora Castle PA-C Unavailable [phone] Encounter Details Date Type Department Care Team (Late st Contact Info) Description 01/09/2025 [employer] Message [facility] [address] [place] [address] [facility] Provider Results Social History Tobacco Use [...] 04/27/2025 2:00 AM CDT Allied Health/Nurse Visit [facility] [address] [place] [address] Yuan Colby MD [address] [place] [address] 05/17/2025 1:45 PM CDT Allied Health/Nurse Visit [place] [place] [address] Yuan Colby MD [address] [place] [address] 05/17/2025 2:00 PM CDT Office Visit [place] [address] [place] [address] Cora Castle PA-C [address] [place] [address] 01/03/2026 1:15 PM CDT Office Visit [place] [address] [place] [address] Gi Monroe MD [address] [place] [address] documented as of this encounter Visit Diagnoses Not on filedocumented in this encounter Care Teams Sap Gatherer Relationship Specialty Start Date End Date Yolanda Spicer MD [address] [place] [address] PCP - General INTERNAL MEDICINE 01/23/20 Yuan Colby MD [address] [place] [address] Consulting Physician CLINICAL CARDIAC ELECTROPHYSIOLOGY 09/24/22 Gi Monroe MD [address] [place] [address] Consulting Physician CARDIOVASCULAR DISEASE 01/21/24 Maurisio Randhawa MD [address] [address] ORTHOPAEDIC SURGERY 12/28/24 Cora Castle PA-C [address] [place] [address] Referring Physician PHYSICIAN NURSE REVIEWER 04/04/25 documented as of this encounter
--- OUTSIDE RECORDS SUMMARY | 2025-04-14 12:06 | XMS_ITS | Encounter Summary ---
Author Organization [facility] Address [address] [place] [address] Care Team Providers Care [employer] Name Role Phone Yolanda Spicer MD Primary Care Provider [phone] Yuan Colby MD Unavailable [phone] Gi Monroe MD Unavailable Maurisio Randhawa MD Unavailable [phone] Cora Castle PA-C Unavailable [phone] Encounter Details Date Type Department Care Team (Late st Contact Info) Description 09/11/2022 Hospital Orders Only [facility] Pre/Post [address] [place] [address] Yuan Colby MD [address] [place], [place] [address] Social History Tobacco Use Types Packs/Day Years [...] Coronavirus/COVID-19? No / Unsure 08/18/2022 2:33 PM SPRING FITTER HELPER documented as of this encounter Plan of Treatment Upcoming Encounters Date Type Department Care Team (Late st Contact Info) Description 04/27/2025 2:00 AM CDT Allied Health/Nurse Visit [facility] [address] [place] [address] Yuan Colby MD [address] [place] [address] 05/17/2025 1:45 PM CDT Allied Health/Nurse Visit [place] [place] [address] Yuan Colby MD [address] [place] [address] 05/17/2025 2:00 PM CDT Office Visit [place] [address] [place] [address] Cora Castle PA-C [address] [place] [address] 01/03/2026 1:15 PM CDT Office Visit [place] [address] [place] [address] Gi Monroe MD [address] [place] [address] documented as of this encounter Visit Diagnoses Not on filedocumented in this encounter Care Teams [employer] Relationship Specialty Start Date End Date Yolanda Spicer MD [address] [place] [address] PCP - General INTERNAL MEDICINE 01/23/20 Yuan Colby MD [address] [place] [address] Consulting Physician CLINICAL CARDIAC ELECTROPHYSIOLOGY 09/24/22 Gi Monroe MD [address] [place] [address] Consulting Physician CARDIOVASCULAR DISEASE 01/21/24 Maurisio Randhawa MD [address] [address] ORTHOPAEDIC SURGERY 12/28/24 Cora Castle PA-C [address] [place] [address] Referring Physician PHYSICIAN DIRECTOR INPATIENT HEADACHE PROGRAM 04/04/25 documented as of this encounter
--- OUTSIDE RECORDS SUMMARY | 2025-04-14 12:06 | XMS_ITS | Encounter Summary ---
Author Organization [facility] Address [address] [place] [address] Care Team Providers Care It Portfolio Manager Name Role Phone Yolanda Spicer MD Primary Care Provider [phone] Yuan Colby MD Unavailable [phone] Gi Monroe MD Unavailable Maurisio Randhawa MD Unavailable [phone] Cora Castle PA-C Unavailable [phone] Encounter Details Date Type Department Care Team (Late st Contact Info) Description 08/05/2022 Abstract [facility] [address] [place] [address] Abstract, Doc Pccl Social History Tobacco Use [...] 04/27/2025 2:00 AM CDT Allied Health/Nurse Visit [facility] ld [address] [place] [address] Yuan Colby MD [address] [place] [address] 05/17/2025 1:45 PM CDT Allied Health/Nurse Visit [facility] [place] [address] [place] [address] Yuan Colby MD [address] [place], [place] 361851 05/17/2025 2:00 PM CDT Office Visit [place] [address] [place] [address] Cora Castle PA-C 619 [place] [address] 01/03/2026 1:15 PM CDT Office Visit [place] [address] [place] [address] Gi Monroe MD [address] [place], [place] 997869 documented as of this encounter Procedures Procedure [...] on filedocumented in this encounter Care Teams It Portfolio Manager Relationship Specialty Start Date End Date Yolanda Spicer MD [address] [place] [address] PCP - General INTERNAL MEDICINE 01/23/20 Yuan Colby MD [address] [place] [address] Consulting Physician CLINICAL CARDIAC ELECTROPHYSIOLOGY 09/24/22 Gi Monroe MD [address] [place] [address] Consulting Physician CARDIOVASCULAR DISEASE 01/21/24 Maurisio Randhawa MD [address] [address] ORTHOPAEDIC SURGERY 12/28/24 Cora Castle PA-C 9 [place] [address] Referring Physician PHYSICIAN MOLD BLOWER 04/04/25 documented as of this encounter
--- OUTSIDE RECORDS SUMMARY | 2025-04-14 12:06 | XMS_ITS | Encounter Summary ---
Author Organization [facility] Address [address] [place] [address] Care Team Providers Care Inside Outside Sales Representative Name Role Phone Yolanda Spicer MD Primary Care Provider [phone] Yuan Colby MD Unavailable [phone] Gi Monroe MD Unavailable Maurisio Randhawa MD Unavailable [phone] Cora Castle PA-C Unavailable [phone] Encounter Details Date Type Department Care Team (Late st Contact Info) Description 11/20/2023 Medication Management [facility] [address] [place] [address] Cora Castle PA-C [address] [place], [place] 452861 Social History Tobacco Use Types Packs/Day Years [...] 04/27/2025 2:00 AM CDT Allied Health/Nurse Visit [facility] [address] [place] [address] Yuan Colby MD [address] [place] [address] 05/17/2025 1:45 PM CDT Allied Health/Nurse Visit [place] [address] [place] [address] Yuan Colby MD [address] [place], [place] 813131 05/17/2025 2:00 PM CDT Office Visit [place] [address] [place] [address] Cora Castle PA-C [address] [place], [place] 405491 01/03/2026 1:15 PM CDT Office Visit [place] [address] [place] [address] Gi Monroe MD [address] [place], [place] 905839 documented as of this encounter Visit Diagnoses Not on filedocumented in this encounter Care Teams Inside Outside Sales Representative Relationship Specialty Start Date End Date Yolanda Spicer MD [address] [place] [address] PCP - General INTERNAL MEDICINE 01/23/20 Yuan Colby MD [address] [place] [address] Consulting Physician CLINICAL CARDIAC ELECTROPHYSIOLOGY 09/24/22 Gi Monroe MD [address] [place] [address] Consulting Physician CARDIOVASCULAR DISEASE 01/21/24 Maurisio Randhawa MD [address] [id number] ORTHOPAEDIC SURGERY 12/28/24 Cora Castle PA-C 9 [place] [address] Referring Physician PHYSICIAN EVALUATION MANAGER 04/04/25 documented as of this encounter
--- OUTSIDE RECORDS SUMMARY | 2025-04-14 12:06 | XMS_ITS | Clinical Summary ---
Author Organization [facility] Address [address] [place] [address] Care Team Providers Care Strategic Communications Specialist Name Role Phone Yolanda Spicer MD Primary Care Provider [phone] Yuan Colby MD Unavailable [phone] Gi Monroe MD Unavailable Maurisio Randhawa MD Unavailable [phone] Cora Castle PA-C Unavailable [phone] Allergies Active Allergy Reactions Criticality Noted Date [...] Problem Noted Date Diagnosed Date Atrial flutter ([facility]) 03/30/2023 S/P ablation of atrial flutter 03/30/2023 Implantable loop recorder present 03/30/2023 Mild coronary artery disease 02/11/2021 Takotsubo syndrome 02/17/2020 Moderate obstructive sleep apnea 02/17/2020 Atrial fibrillation, unspecified type ([facility]) 04/04/2011 Palpitations Mixed hyperlipidemia Essential (primary) hypertension Encounters Date Type Department Care Team Description 03/16/2025 1:15 AM CDT Allied Health/Nurse Visit [facility] [address] [place] [address] Yuan Colby MD 03/07/2025 3:30 AM CDT Allied Health/Nurse Visit [facility] [address] [place] [address] Yuan Colby MD 02/07/2025 3:05 AM CDT Allied Health/Nurse Visit [facility] [address] [place] [address] Yuan Colby MD from Last 3 Months [...] 36.4 C (97.6 F) 09/15/2022 5:00 AM CUSTOMER COMPLAINT CLERK Respiratory Rate 16 12/28/2024 3:06 PM CDT Oxygen Saturation 98% 12/28/2024 3:06 PM CDT Inhaled Oxygen Concentration - - Weight 89.9 kg (198 lb 3.2 oz) 12/28/2024 3:06 P M CDT Height 172.7 cm (5' 8) 12/28/2024 3:06 PM CDT Body Mass Index 30.14 12/28/2024 3:06 PM CDT Plan of Treatment Upcoming Encounters Date Type Department Care Team (Late st Contact Info) Description 04/27/2025 2:00 AM CDT Allied Health/[facility] Visit [facility] [address] [place] [address] Yuan Colby MD 6[address] [place] [address] 05/17/2025 1:45 PM CDT Allied Health/Nurse Visit [place] [address] [place] [address] Yuan Colby MD [address] [place] [address] 05/17/2025 2:00 PM CDT Office Visit [place] [address] [place] [address] Cora Castle PA-C 6[address] [place] [address] 01/03/2026 1:15 PM CDT Office Visit [facility] [place] [address] Gi Monroe MD [address] [place] [address] Health Maintenance Due Date Last Done Comments [...] Zoster Vaccines (3 of 3) 11/10/2019 09/15/2019, 01/2016 Annual Medicare Wellness Visit 2020 Dexa Scan [...] this topic Medical Devices Implanted Type Area Cartridge Assembling Machine Adjuster Device Identifier Shelf Expiration Date Model / Serial / Lot Medtronic Linq Ii-09/15/2022 Implanted:09/2022 by Yuan Colby MD (Quantity not on file) Implantable Loop Recorder [employer] 12/28/2023 [id number] / [id number] / Procedures Procedure Name Priority Date/Time Associated Diagnosis Comments LIPID PANEL Routine 03/24/2023 Mixed hyperlipidemia HEMOGLOBIN, GLYCOSYLATED Routine 12/20/2020 from Last 3 Months or Most Recently Relevant to Health Maintenance Results * LIPID PANEL (03/24/2023) CHOLESTEROL 150 <200 [...] Recently Relevant to Health Maintenance Insurance MEDICARE [facility] Advance Directives * Full Code (Latest Code Status on File) Date Activated Date Inactivated Comments 09/15/2022 9:51 AM 09/15/2022 3:58 PM Care Teams Strategic Communications Specialist Relationship Specialty Start Date End Date Yolanda Spicer MD [address] [place] [address] PCP - General INTERNAL MEDICINE 01/23/20 Yuan Colby MD [address] [place] [address] Consulting Physician CLINICAL CARDIAC ELECTROPHYSIOLOGY 09/24/22 Gi Monroe MD [address] [place] [address] Consulting Physician CARDIOVASCULAR DISEASE 01/21/24 Maurisio Randhawa MD [address] [place] [address] ORTHOPAEDIC SURGERY 12/28/24 Cora Castle PA-C 9 [place] [address] Referring Physician PHYSICIAN NURSE ORTHOPEDIC 04/04/25
--- OUTSIDE RECORDS SUMMARY | 2025-04-14 12:06 | XMS_ITS | Encounter Summary ---
Author Organization [facility] Address [address] [place] [address] Care Team Providers Care Overhead Cleaner Maintainer Name Role Phone Yolanda Spicer MD Primary Care Provider [phone] Yuan Colby MD Unavailable [phone] Gi Monroe MD Unavailable Maurisio Randhawa MD Unavailable [phone] Cora Castle PA-C Unavailable [phone] Encounter Details Date Type Department Care Team (Late st Contact Info) Description 10/24/2022 happyview Message [facility] [place] [address] Yuan Colby MD [address] [place], [place] [address] Medication Social History Tobacco Use Types Packs/Day [...] Coronavirus/COVID-19? No / Unsure 10/08/2022 11:42 AM SKIN SPECIALIST documented as of this encounter Plan of Treatment Upcoming Encounters Date Type Department Care Team (Late st Contact Info) Description 04/27/2025 2:00 AM CDT [facility] Health[facility] Visit [facility] [address] [place] [address] Yuan Colby MD [address] [place] [address] 05/17/2025 1:45 PM CDT Allied Health/Nurse Visit [facility] [place] [address] [place] [address] Yuan Colby MD [address] [place] [address] 05/17/2025 2:00 PM CDT Office Visit [place] [address] [place] [address] Cora Castle PA-C 6[address] [place] [address] 01/03/2026 1:15 PM CDT Office Visit [facility] [place] [address] [place] [address] Gi Monroe MD [address] [place] [address] documented as of this encounter Visit Diagnoses Not on filedocumented in this encounter Care Teams Overhead Cleaner Maintainer Relationship Specialty Start Date End Date Yolanda Spicer MD [address] [place] [address] PCP - General INTERNAL MEDICINE 01/23/20 Yuan Colby MD [address] [place] [address] Consulting Physician CLINICAL CARDIAC ELECTROPHYSIOLOGY 09/24/22 Gi Monroe MD 9 [place] [address] Consulting Physician CARDIOVASCULAR DISEASE 01/21/24 Maurisio Randhawa MD [address] [address] ORTHOPAEDIC SURGERY 12/28/24 Cora Castle PA-C 9 [place] [address] Referring Physician PHYSICIAN MEDICAL OBSERVER 04/04/25 documented as of this encounter
--- OUTSIDE RECORDS SUMMARY | 2025-04-14 12:06 | XMS_ITS | Encounter Summary ---
Author Organization [facility] Address [address] [place] [address] Care Team Providers Care Photoradio Operator Name Role Phone Yolanda Spicer MD Primary Care Provider [phone] Yuan Colby MD Unavailable [phone] Gi Monroe MD Unavailable Maurisio Randhawa MD Unavailable [phone] Cora Castle PA-C Unavailable [phone] Encounter Details Date Type Department Care Team (Latest Contact Info) Description 10/23/2023 Wiztangot Message [facility] [place] [address] Yuan Colby MD [address] [place] [address] Clarify instructions Social History Tobacco [...] Upcoming Encounters Date Type Department Care Team ( st Contact Info) Description 04/27/2025 2:00 AM CDT Allied Health/Nurse Visit [facility] [address] [place] [address] Yuan Colby MD [address] [place] [address] 05/17/2025 1:45 PM CDT Allied Health/Nurse Visit [place] [address] [place] [address] Yuan Colby MD [address] [place], [place] 4976[address] 05/17/2025 2:00 PM CDT Office Visit [address] [place] [address] Cora Castle PA-C [address] [place], [place] 0[address]691 01/03/2026 1:15 PM CDT Office Visit [place] [address] [place] [address] Gi Monroe MD [address] [place], [place] 518739 documented as of this encounter Visit Diagnoses Not on filedocumented in this encounter Care Teams Photoradio Operator Relationship Specialty Start Date End Date Yolanda Spicer MD [address] [place] [address] PCP - General INTERNAL MEDICINE 01/23/20 Yuan Colby MD [address] [place] [address] Consulting Physician CLINICAL CARDIAC ELECTROPHYSIOLOGY 09/24/22 Gi Monroe MD [address] [place] [address] Consulting Physician CARDIOVASCULAR DISEASE 01/21/24 Maurisio Randhawa MD [address] [address] ORTHOPAEDIC SURGERY 12/28/24 Cora Castle PA-C [address] [place] [address] Referring Physician PHYSICIAN SALES COACH 04/04/25 documented as of this encounter
--- OUTSIDE RECORDS SUMMARY | 2025-04-14 12:06 | XMS_ITS | Encounter Summary ---
Author Organization [facility] Address [address] [place] [address] Care Team Providers Care Library Specialist Name Role Phone Yolanda Spicer MD Primary Care Provider [phone] Yuan Colby MD Unavailable [phone] Gi Monroe MD Unavailable Maurisio Randhawa MD Unavailable [phone] Cora Castle PA-C Unavailable [phone] Encounter Details Date Type Department Care Team (Late st Contact Info) Description 09/11/2022 Hospital Orders Only [facility] Anesthesia [address] [place] [address] Silvia Collins RN Anesthesia Record Procedure Summary Procedure Name Responsible Anesthesiologist Anesthesia Start Time Anesthesia Stop Time XA AFLUTTER ABLATION Jose Enciso MD 09/15/22 0731 09/15/22 0921 Events Date Time Event Comment 09/15/2022 0653 0653 AN Anesthesia Prepped 0729 AN RHIT Prepped 0731 An Start Patient ID and [...] Coronavirus/COVID-19? No / Unsure 08/18/2022 2:33 PM POKER DEALER documented as of this encounter Plan of Treatment Upcoming Encounters Date Type Department Care Team (Late st Contact Info) Description 04/27/2025 2:00 AM CDT Allied Health/Nurse Visit [facility] [address] [place] [address] Yuan Colby MD [address] [place] [address] 05/17/2025 1:45 PM CDT Allied Health/Nurse Visit [place] [address] [place] [address] Yuan Colby MD [address] [place] [address] 05/17/2025 2:00 PM CDT Office Visit [place] [address] [place] [address] Cora Castle PA-C [address] [place] [address] 01/03/2026 1:15 PM CDT Office Visit [facility] [place] [address] [place] [address] Gi Monroe MD [address] [place] [phone] documented as of this encounter Visit Diagnoses Not on filedocumented in this encounter Care Teams Library Specialist Relationship Specialty Start Date End Date Yolanda Spicer MD [address] [place] [address] PCP - General INTERNAL MEDICINE 01/23/20 Yuan Colby MD [address] [place] [address] Consulting Physician CLINICAL CARDIAC ELECTROPHYSIOLOGY 09/24/22 Gi Monroe MD [address] [place] [address] Consulting Physician CARDIOVASCULAR DISEASE 01/21/24 Maurisio Randhawa MD [address] [address] ORTHOPAEDIC SURGERY 12/28/24 Cora Castle PA-C 9 [place] [address] Referring Physician PHYSICIAN VENDOR MANAGEMENT CONSULTANT 04/04/25 documented as of this encounter
[2025-04-14 13:31] LABS: Albumin Level 4.3 g/dL (3.5-5.1)
[2025-04-14 13:53] LABS: Hemoglobin A1C 5.9 % (<5.7)
[2025-04-15 08:39] LABS: Anion Gap 10 mmol/L (4-12); Blood Urea Nitrogen 12 mg/dL (7-17); Calcium 9.6 mg/dL (8.4-10.2); Carbon Dioxide 25 mmol/L (22-30); Chloride 104 mmol/L (98-107); Estimated Glomerular Filt Rate > 60; Glucose 110 mg/dL (65-110); Potassium 4.3 mmol/L (3.4-5.0); Sodium 139 mmol/L (137-145)
== END 2025-04-14 12:00 | disposition home or self-care (01) ==
LOC: ANHSURGERY 12:03
PROVIDERS: Anesthesiology; PCP Internal Medicine; Visit Provider Orthopaedic Surgery
DX: Z01.812 Encounter for preprocedural laboratory examination (principal); M16.11 Unilateral primary osteoarthritis, right hip; E11.9 Type 2 diabetes mellitus without complications; Z79.899 Other long term (current) drug therapy
CPT/HCPCS: 36415; 80048; 80307; 82040; 83036

== ENCOUNTER 2025-04-17 14:14 | Outpatient (CLI) | payer MEDICARE, SELFPAY ==
--- OUTSIDE RECORDS SUMMARY | 2025-04-17 14:23 | XMS_ITS | Encounter Summary ---
Author Organization [facility] Address [address] [place] [address] Care Team Providers Care Data Center Solutions Architect Name Role Phone Yolanda Spicer MD Primary Care Provider [phone] Yuan Colby MD Unavailable [phone] Gi Monroe MD Unavailable Maurisio Randhawa MD Unavailable [phone] Cora Castle PA-C Unavailable [phone] Encounter Details Date Type Department Care Team (Late st Contact Info) Description 01/09/2025 NCTech Message [facility] [place] [facility] [address] [place] [address] [facility] Results Social History Tobacco Use Types [...] 04/27/2025 2:00 AM CDT Allied Health/Nurse Visit [facility] [address] [place] [address] Yuan Colby MD [address] [place] [address] 05/17/2025 1:45 PM CDT Allied Health/Nurse Visit [place] [address] [place] [address] Yuan Colby MD [address] [place] [address] 05/17/2025 2:00 PM CDT Office Visit [place] [address] [place] [address] Cora Castle PA-C [address] [place] [address] 01/03/2026 1:15 PM CDT Office Visit [place] [address] [place] [address] Gi Monroe MD [address] [place] [address]39 documented as of this encounter Visit Diagnoses Not on filedocumented in this encounter Care Teams Data Center Solutions Architect Relationship Specialty Start Date End Date Yolanda Spicer MD [address] [place] [address] PCP - General INTERNAL MEDICINE 01/23/20 Yuan Colby MD [address] [place] [address] Consulting Physician CLINICAL CARDIAC ELECTROPHYSIOLOGY 09/24/22 Gi Monroe MD 9 [place] [address] Consulting Physician CARDIOVASCULAR DISEASE 01/21/24 Maurisio Randhawa MD [address] [address] ORTHOPAEDIC SURGERY 12/28/24 Cora Castle PA-C 9 [place] [address] Referring Physician PHYSICIAN CUSTOM APPLICATOR 04/04/25 documented as of this encounter
--- OUTSIDE RECORDS SUMMARY | 2025-04-17 14:23 | XMS_ITS | Encounter Summary ---
Author Organization [facility] Address [address] [place] [address] Care Team Providers Care Filling Machine Operator Name Role Phone Yolanda Spicer MD Primary Care Provider [phone] Yuan Colby MD Unavailable [phone] Gi Monroe MD Unavailable Maurisio Randhawa MD Unavailable [phone] Cora Castle PA-C Unavailable [phone] Encounter Details Date Type Department Care Team (Late st Contact Info) Description 11/20/2023 Medication Management [facility] [address] [place] [address] Cora Castle PA-C [address] [place], [place] 836[address] Social History Tobacco Use Types Packs/Day Years [...] 04/27/2025 2:00 AM CDT Allied Health/Nurse Visit [facility] [address] [place] [address] Yuan Colby MD [address] [place] [address] 05/17/2025 1:45 PM CDT Allied Health/Nurse Visit [place] [address] [place] [address] Yuan Colby MD [address] [place], [place] [address] 05/17/2025 2:00 PM CDT Office Visit [place] [address] [place] [address] Cora Castle PA-C [address] [place], [place] [address] 01/03/2026 1:15 PM CDT Office Visit [place] [address] [place] [address] Gi Monroe MD [address] [place], [place] 979909 documented as of this encounter Visit Diagnoses Not on filedocumented in this encounter Care Teams Filling Machine Operator Relationship Specialty Start Date End Date Yolanda Spicer MD [address] [place] [address] PCP - General INTERNAL MEDICINE 01/23/20 Yuan Colby MD [address] [place] [address] Consulting Physician CLINICAL CARDIAC ELECTROPHYSIOLOGY 09/24/22 Gi Monroe MD [address] [place] [address] Consulting Physician CARDIOVASCULAR DISEASE 01/21/24 Maurisio Randhawa MD [address] [phone] ORTHOPAEDIC SURGERY 12/28/24 Cora Castle PA-C [address] [place] [address] Referring Physician PHYSICIAN CORPORATE DEVELOPMENT ANALYST 04/04/25 documented as of this encounter
--- OUTSIDE RECORDS SUMMARY | 2025-04-17 14:23 | XMS_ITS | Encounter Summary ---
Author Organization [facility] Address [address] [place] [address] Care Team Providers Care Tire Stripper Name Role Phone Yolanda Spicer MD Primary Care Provider [phone] Yuan Colby MD Unavailable [phone] Gi Monroe MD Unavailable Maurisio Randhawa MD Unavailable [phone] Cora Castle PA-C Unavailable [phone] Encounter Details Date Type Department Care Team (Late st Contact Info) Description 10/24/2022 Actus Digital Message [facility] Out[facility] Clinic[address] [place] [address] Yuan Colby MD [address] [place], [place] 416461 Medication Social History Tobacco Use Types Packs/Day [...] Coronavirus/COVID-19? No / Unsure 10/08/2022 11:42 AM SCALE MECHANIC documented as of this encounter Plan of Treatment Upcoming Encounters Date Type Department Care Team (Late st Contact Info) Description 04/27/2025 2:00 AM CDT Allied Health/Nurse Visit [facility] [address] [place] [address] Yuan Colby MD [address] [place] [address] 05/17/2025 1:45 PM CDT Allied Health/Nurse Visit [facility] [place] [address] [place] [address] Yuan Colby MD [address] [place] [address] 05/17/2025 2:00 PM CDT Office Visit [place] [address] [place] [address] Cora Castle PA-C [address] [place] [address] 01/03/2026 1:15 PM CDT Office Visit [facility] [place] [address] [place] [address] Gi Monroe MD [address] [place] [address] documented as of this encounter Visit Diagnoses Not on filedocumented in this encounter Care Teams Tire Stripper Relationship Specialty Start Date End Date Yolanda Spicer MD [address] [place] [address] PCP - General INTERNAL MEDICINE 01/23/20 Yuan Colby MD [address] [place] [address] Consulting Physician CLINICAL CARDIAC ELECTROPHYSIOLOGY 09/24/22 Gi Monroe MD 9 [place] [address] Consulting Physician CARDIOVASCULAR DISEASE 01/21/24 Maurisio Randhawa MD [address] [address] ORTHOPAEDIC SURGERY 12/28/24 Cora Castle PA-C 9 [place] [address] Referring Physician PHYSICIAN CUSTOMS PORT DIRECTOR 04/04/25 documented as of this encounter
--- OUTSIDE RECORDS SUMMARY | 2025-04-17 14:23 | XMS_ITS | Encounter Summary ---
Author Organization [facility] Address [address] [place] [address] Care Team Providers Care Gas Appliance Mechanic Name Role Phone Yolanda Spicer MD Primary Care Provider [phone] Yuan Colby MD Unavailable [phone] Gi Monroe MD Unavailable Maurisio Randhawa MD Unavailable [phone] Cora Castle PA-C Unavailable [phone] Encounter Details Date Type Department Care Team (Late st Contact Info) Description 09/11/2022 Hospital Orders Only [facility] Anesthesia [address] [place] [address] Silvia Collins RN Anesthesia Record Procedure Summary Procedure Name Responsible Anesthesiologist Anesthesia Start Time Anesthesia Stop Time XA AFLUTTER ABLATION Jose Enciso MD 09/15/22 0731 09/15/22 0921 Events Date Time Event Comment 09/15/2022 0653 0653 AN Anesthesia Prepped 0729 AN DRAY TRUCK DRIVER Prepped 0731 An Start Patient ID and [...] Coronavirus/COVID-19? No / Unsure 08/18/2022 2:33 PM CONTRACT GRAPHIC DESIGNER documented as of this encounter Plan of Treatment Upcoming Encounters Date Type Department Care Team (Late st Contact Info) Description 04/27/2025 2:00 AM CDT Allied Health/Nurse Visit [facility] [address] [place] [address] Yuan Colby MD [address] [place] [address] 05/17/2025 1:45 PM CDT Allied Health/Nurse Visit [place] [address] [place] [address] Yuan Colby MD [address] [place] [address] 05/17/2025 2:00 PM CDT Office Visit [place] [address] [place] [address] Cora Castle PA-C [address] [place] [address] 01/03/2026 1:15 PM CDT Office Visit [facility] [place] [address] [place] [address] Gi Monroe MD [address] [place] [address] [phone] documented as of this encounter Visit Diagnoses Not on filedocumented in this encounter Care Teams Gas Appliance Mechanic Relationship Specialty Start Date End Date Yolanda Spicer MD [address] [place] [address] PCP - General INTERNAL MEDICINE 01/23/20 Yuan Colby MD [address] [place] [address] Consulting Physician CLINICAL CARDIAC ELECTROPHYSIOLOGY 09/24/22 Gi Monroe MD [address] [place] [address] Consulting Physician CARDIOVASCULAR DISEASE 01/21/24 Maurisio Randhawa MD [address] [address] ORTHOPAEDIC SURGERY 12/28/24 Cora Castle PA-C [address] [place] [address] Referring Physician PHYSICIAN UNDERWRITING SUPPORT SPECIALIST 04/04/25 documented as of this encounter
--- OUTSIDE RECORDS SUMMARY | 2025-04-17 14:23 | XMS_ITS | Encounter Summary ---
Author Organization [facility] Address [address] [place] [address] Care Team Providers Care Global Marketing Coordinator Name Role Phone Yolanda Spicer MD Primary Care Provider [phone] Yuan Colby MD Unavailable [phone] Gi Monroe MD Unavailable Maurisio Randhawa MD Unavailable [phone] Cora Castle PA-C Unavailable [phone] Encounter Details Date Type Department Care Team (Late st Contact Info) Description 10/29/2022 Abstract [facility] [address] [place] [address] Gerard Miller MD [address] [place] [address] Social History Tobacco Use Types [...] Coronavirus/COVID-19? No / Unsure 10/08/2022 11:42 AM INFORMATION CLERK documented as of this encounter Plan of Treatment Upcoming Encounters Date Type Department Care Team (Late st Contact Info) Description 04/27/2025 2:00 AM CDT Allied Health/Nurse Visit [facility] [address] [place] [address] Yuan Colby MD [address] [place] [address] 05/17/2025 1:45 PM CDT Allied Health/Nurse Visit [place] [address] [place] [address] Yuan Colby MD [address] [place] [address] 05/17/2025 2:00 PM CDT Office Visit [place] [address] [place] [address] Cora Castle PA-C [address] [place] [address] 01/03/2026 1:15 PM CDT Office Visit [place] [address] [place] [address] Gi Monroe MD [address] [place] [address] documented as of this encounter Procedures Procedure Name Priority Date/Time Associated Diagnosis Comments CMP (ABSTRACTED LAB) Routine 12/30/2021 T3 FREE (ABSTRACTED) Routine 12/30/2021 TSH (OUTSIDE LAB) Routine 12/30/2021 CBC (OUTSIDE LAB) Routine 12/30/2021 BNP Routine 12/30/2021 LIPID PANEL Routine 12/30/2021 THYROXINE, FREE (FT4) Routine 12/30/2021 documented in this encounter Results * T3 FREE (ABSTRACTED) (12/30/2021) [facility] FREE T3 3.4 2.3 - 4.2 12/30/2021 us Default History Genericprovider LAB-OUTSIDE/ABST RACTED Final Result * LIPID PANEL (12/30/2021) [facility] NON HDL CHOLESTEROL 115 <130 CHOL/HDL RATIO 3.4 <5.0 12/30/2021 Default History Genericprovider LABORATORY Final Result * THYROXINE, FREE (FT4) (12/30/2021) [facility] T4 1.2 12/30/2021 Default History Genericprovider LABORATORY Final Result * TSH (OUTSIDE LAB) (12/30/2021) [facility] TSH 0.33 0.40 - 4.50 12/30/2021 Default History Genericprovider LAB-OUTSIDE/ABST RACTED Final Result * BNP (12/30/2021) [facility] B TYPE NATRIURETIC PEPTIDE 34 <100 12/30/2021 [...] on filedocumented in this encounter Care Teams Global Marketing Coordinator Relationship Specialty Start Date End Date Yolanda Spicer MD [address] [place] [address] PCP - General INTERNAL MEDICINE 01/23/20 Yuan Colby MD [address] [place] [address] Consulting Physician CLINICAL CARDIAC ELECTROPHYSIOLOGY 09/24/22 Gi Monroe MD [address] [place] [address] Consulting Physician CARDIOVASCULAR DISEASE 01/21/24 Maurisio Randhawa MD [address] [id number] ORTHOPAEDIC SURGERY 12/28/24 Cora Castle PA-C [address] [place] [address] Referring Physician PHYSICIAN PROGRAM PARAPROFESSIONAL 04/04/25 documented as of this encounter
--- OUTSIDE RECORDS SUMMARY | 2025-04-17 14:23 | XMS_ITS | Encounter Summary ---
Author Organization [facility] Address [address] [place] [address] Care Team Providers Care Sales Office Manager Name Role Phone Yolanda Spicer MD Primary Care Provider [phone] Yuan Colby MD Unavailable [phone] Gi Monroe MD Unavailable Maurisio Randhawa MD Unavailable [phone] Cora Castle PA-C Unavailable [phone] Encounter Details Date Type Department Care Team (Latest Contact Info) Description 10/23/2023 Well[employer] Message [facility] [place] [address] Yuan Colby MD [address] [place] [address] Clarify instructions Social History Tobacco [...] Allied Health/Nurse Visit [facility] [address] [place] [address] Yuan Colby MD [address] [place] [address] 05/17/2025 1:45 PM CDT Allied Health/Nurse Visit [place] [address] [place] [address] Yuan Colby MD [address] [place], [place] 217201 05/17/2025 2:00 PM CDT Office Visit [address] [place] [address] Cora Castle PA-C [address] [place], [place] 121341 01/03/2026 1:15 PM CDT Office Visit [place] [address] [place] [address] Gi Monroe MD [address] [place], [place] 523929 documented as of this encounter Visit Diagnoses Not on filedocumented in this encounter Care Teams Sales Office Manager Relationship Specialty Start Date End Date Yolanda Spicer MD [address] [place] [address] PCP - General INTERNAL MEDICINE 01/23/20 Yuan Colby MD [address] [place] [address] Consulting Physician CLINICAL CARDIAC ELECTROPHYSIOLOGY 09/24/22 Gi Monroe MD [address] [place] [address] Consulting Physician CARDIOVASCULAR DISEASE 01/21/24 Maurisio Randhawa MD [address] [address] ORTHOPAEDIC SURGERY 12/28/24 Cora Castle PA-C [address] [place] [address] Referring Physician PHYSICIAN DEVOPS ARCHITECT 04/04/25 documented as of this encounter
--- OUTSIDE RECORDS SUMMARY | 2025-04-17 14:23 | XMS_ITS | Encounter Summary ---
Author Organization [facility] Address [address] [place] [address] Care Team Providers Care Sweeper Brush Maker Machine Name Role Phone Yolanda Spicer MD Primary Care Provider [phone] Yuan Colby MD Unavailable [phone] Gi Monroe MD Unavailable Maurisio Randhawa MD Unavailable [phone] Cora Castle PA-C Unavailable [phone] Encounter Details Date Type Department Care Team (Late st Contact Info) Description 09/11/2022 Hospital Orders Only [employer] [facility] Closer Pre/Post [address] [place] [address] Yuan Colby MD [address] [place], [place] 931831 Social History Tobacco Use Types Packs/Day Years [...] Coronavirus/COVID-19? No / Unsure 08/18/2022 2:33 PM OCEAN LIFEGUARD documented as of this encounter Plan of Treatment Upcoming Encounters Date Type Department Care Team (Late st Contact Info) Description 04/27/2025 2:00 AM CDT Allied Health/Nurse Visit [facility] [address] [place] [address] Yuan Colby MD [address] [place] [address] 05/17/2025 1:45 PM CDT Allied Health/Nurse Visit [place] [address] [place] [address] Yuan Colby MD [address] [place] [address] 05/17/2025 2:00 PM CDT Office Visit [place] [address] [place] [address] Cora Castle PA-C [address] [place] [address] 01/03/2026 1:15 PM CDT Office Visit [place] [address] [place] [address] Gi Monroe MD [address] [place] [address] documented as of this encounter Visit Diagnoses Not on filedocumented in this encounter Care Teams Sweeper Brush Maker Machine Relationship Specialty Start Date End Date Yolanda Spicer MD [address] [place] [address] PCP - General INTERNAL MEDICINE 01/23/20 Yuan Colby MD [address] [place] [address] Consulting Physician CLINICAL CARDIAC ELECTROPHYSIOLOGY 09/24/22 Gi Monroe MD [address] [place] [address] Consulting Physician CARDIOVASCULAR DISEASE 01/21/24 Maurisio Randhawa MD [address] [address] ORTHOPAEDIC SURGERY 12/28/24 Cora Castle PA-C [address] [place] [address] Referring Physician PHYSICIAN EMPLOYMENT AND CLAIMS AIDE 04/04/25 documented as of this encounter
--- OUTSIDE RECORDS SUMMARY | 2025-04-17 14:23 | XMS_ITS | Clinical Summary ---
Author Organization [facility] Address [address] [place] [address] Care Team Providers Care Tab Machine Operator Name Role Phone Yolanda Spicer MD Primary Care Provider [phone] Yuan Colby MD Unavailable [phone] Gi Monroe MD Unavailable Maurisio Randhawa MD Unavailable [phone] Cora Castle PA-C Unavailable [phone] Allergies Active Allergy Reactions Criticality Noted [...] Problem Noted Date Diagnosed Date Atrial flutter ([facility]) 03/30/2023 S/P ablation of atrial flutter 03/30/2023 Implantable loop recorder present 03/30/2023 Mild coronary artery disease 02/11/2021 Takotsubo syndrome 02/17/2020 Moderate obstructive sleep apnea 02/17/2020 Atrial fibrillation, unspecified type ([facility]) 04/04/2011 Palpitations Mixed hyperlipidemia Essential (primary) hypertension Encounters Date Type Department Care Team Description 03/16/2025 1:15 AM CDT Allied Health/Nurse Visit [facility] [address] [place] [address] Yuan Colby MD 03/07/2025 3:30 AM CDT Allied Health/Nurse Visit [facility] [address] [place] [address] Yuan Colby MD 02/07/2025 3:05 AM CDT Allied Health/Nurse Visit [facility] [address] [place] [address] Yuan Colby MD from Last 3 Months [...] 36.4 C (97.6 F) 09/15/2022 5:00 AM GREEN BUILDING DESIGN SPECIALIST Respiratory Rate 16 12/28/2024 3:06 PM CDT [...] 04/27/2025 2:00 AM CDT Allied Health/Nurse Visit [facility] [address] [place] [address] Yuan Colby MD [address] [place] [address] 05/17/2025 1:45 PM CDT Allied Health/Nurse Visit [place] [address] [place] [address] Yuan Colby MD [address] [place] [address] 05/17/2025 2:00 PM CDT Office Visit [place] [address] [place] [address] Cora Castle PA-C [address] [place] [address] 01/03/2026 1:15 PM CDT Office Visit [facility] [place] [address] Gi Monroe MD [address] [place] [address] Health Maintenance Due Date Last Done Comments [...] this topic Medical Devices Implanted Type Area Surgical Forceps Fabricator Device Identifier Shelf Expiration Date Model / Serial / Lot Medtronic Linq Ii-09/15/2022 Implanted:09/2022 by Yuan Colby MD (Quantity not on file) Implantable Loop Recorder [employer] 12/28/2023 [id number] / [id number] / Procedures Procedure Name Priority Date/Time Associated [...] Recently Relevant to Health Maintenance Insurance MEDICARE [facility] [employer]UR[employer] Advance Directives * Full Code (Latest Code Status on File) Date Activated Date Inactivated Comments 09/15/2022 9:51 AM 09/15/2022 3:58 PM Care Teams Tab Machine Operator Relationship Specialty Start Date End Date Yolanda Spicer MD [address] [place] [address] PCP - General INTERNAL MEDICINE 01/23/20 Yuan Colby MD [address] [place] [address] Consulting Physician CLINICAL CARDIAC ELECTROPHYSIOLOGY 09/24/22 Gi Monroe MD [address] [place] [address] Consulting Physician CARDIOVASCULAR DISEASE 01/21/24 Maurisio Randhawa MD [address] [place] [address] ORTHOPAEDIC SURGERY 12/28/24 Cora Castle PA-C [address] [place] [address] Referring Physician PHYSICIAN SERVICE WRITER 04/04/25
--- OUTSIDE RECORDS SUMMARY | 2025-04-17 14:23 | XMS_ITS | Encounter Summary ---
Author Organization [facility] Address [address] [place] [address] Care Team Providers Care Bet Taker Name Role Phone Yolanda Spicer MD Primary Care Provider [phone] Yuan Colby MD Unavailable [phone] Gi Monroe MD Unavailable Maurisio Randhawa MD Unavailable [phone] Cora Castle PA-C Unavailable [phone] Encounter Details Date Type Department Care Team (Late st Contact Info) Description 08/05/2022 [facility] [address] [place] [address] Abstract, Doc Pccl Social History Tobacco Use [...] 04/27/2025 2:00 AM CDT Allied Health/Nurse Visit [facility] [address] [place] [address] Yuan Colby MD [address] [place] [address] 05/17/2025 1:45 PM CDT Allied Health/Nurse Visit [facility] [place] [address] [place] [address] Yuan Colby MD [address] [place], [place] 136751 05/17/2025 2:00 PM CDT Office Visit [place] [address] [place] [address] Cora Castle PA-C [address] [place] [address] 01/03/2026 1:15 PM CDT Office Visit [place] [address] [place] [address] Gi Monroe MD [address] [place], [place] 222499 documented as of this encounter Procedures Procedure [...] on filedocumented in this encounter Care Teams Bet Taker Relationship Specialty Start Date End Date Yolanda Spicer MD [address] [place] [address] PCP - General INTERNAL MEDICINE 01/23/20 Yuan Colby MD [address] [place] [address] Consulting Physician CLINICAL CARDIAC ELECTROPHYSIOLOGY 09/24/22 Gi Monroe MD [address] [place] [address] Consulting Physician CARDIOVASCULAR DISEASE 01/21/24 Maurisio Randhawa MD [address] [address] ORTHOPAEDIC SURGERY 12/28/24 Cora Castle PA-C [address] [place] [address] Referring Physician PHYSICIAN PLASTICS FABRICATION SUPERVISOR 04/04/25 documented as of this encounter
[2025-04-17 15:04] LABS: Anion Gap 10 mmol/L (4-12); Blood Urea Nitrogen 13 mg/dL (7-17); Calcium 9.3 mg/dL (8.4-10.2); Carbon Dioxide 27 mmol/L (22-30); Chloride 101 mmol/L (98-107); Estimated Glomerular Filt Rate > 60; Glucose 111 mg/dL (65-110); Potassium 4.0 mmol/L (3.4-5.0); Sodium 138 mmol/L (137-145)
[2025-04-17 16:23] LABS: MRSA (PCR) NOT DETECTED (NOT DETECTE)
== END 2025-04-17 14:15 | disposition home or self-care (01) ==
PROVIDERS: PCP Internal Medicine; Visit Provider Orthopaedic Surgery
DX: Z01.812 Encounter for preprocedural laboratory examination (principal); M16.11 Unilateral primary osteoarthritis, right hip
CPT/HCPCS: 36415; 80048; 87641

== ENCOUNTER 2025-05-08 00:21 | Day surgery (SDC) | payer MEDICARE, SELFPAY ==
[2025-04-14 12:19] VITALS: BP 125/50; PULSE 52; RESP 14; TEMP 36.5; O2SAT 96; BMI 29.2
--- NOTE | 2025-04-14 12:45 | PC.NURSE ---
Report to the Outpatient Waiting Room, entrance under the green pavilion located off [facility], at time ___10:00am____ on date . Planned Procedure Time: _1200pm .? Time changes happen often and if your time is changed the preop area will call you the afternoon before. - You and your visitor will be asked to self-screen and do not enter if you have any COVID symptoms. Please call surgeon if you need to reschedule. - A mask is optional within the hospital at this time. Patients may have clear liquids (water, carbonated beverages, clear teas, apple juice) until 3 hours prior to surgery with a maximum of 20 ounces. - No food from midnight until time of surgery and no smoking, or chewing tobacco (or any form of nicotine). No chewing gum, candy or mints. (0900am) Take only the following medications with a SIP of water on the morning of surgery: ___Coreg and Tyelnol if needed DO NOT STOP ANY OF YOUR OTHER PRESCRIPTION MEDICATIONS PRIOR TO SURGERY EXCEPT THE FOLLOWING Hold all vitamins and supplements for 3 days per anesthesiologist. Date to take last dose 05/04/25 Medications to discontinue per physician _Luciana for [address] Randhawa Date to take last dose 05/02/25 Please no make-up, nail costa rican, hairspray, perfume, deodorant, or body powder the day of surgery.? No jewelry (including any body piercings) or valuables the day of surgery, leave them at home.? Please take a shower or bath the night before, or the morning of, surgery with an antibacterial soap. Yellow Dial soap ? Wear comfortable, loose fitting clothing.? Bring overnight bag, walker, Celll phone , process control manager, Robe - Jewelry must be removed prior to entering the operating room.? Rings and piercings that are not removed may be cut off. - The hospital will not accept responsibility for valuables.? - Please leave all valuables, including medications, at home the day of surgery. If you are going home after surgery, a licensed tow motor driver must drive you home.? - NO public transportation without another adult if you receive anesthesia. - We recommend that an adult stay with you for 24 hours following discharge. - We also recommend that you do not drive, make important decision, drink alcoholic beverages, or take any drugs that were not prescribed by your health care provider for at least 24 hours after your discharge time. Follow any additional instructions given to you from your surgeon. Telephone instructions given to __Patient & and asked if any additional questions and then verbalized understanding. Patient advised to call surgeon office or pre surgery nurse liaison [phone] if any additional questions.
[2025-05-08] VITALS (13 sets, daily range): BP systolic 119–177; BP diastolic 47–70; PULSE 44–63; RESP 12–18; TEMP 36.1–36.5; O2SAT 52–100
--- NOTE | ~2025-05-08 | XR_ITS ---
EXAMINATION: XR hip RT min 2V DATE: 05/08/2025 14:57 INDICATION: Right total hip arthroplasty TECHNIQUE: 2 views right hip FINDINGS: There is a right total hip arthroplasty in expected position. Subcutaneous gas with soft t issue swelling are consistent with recent surgery. IMPRESSION: 1. Recent right total hip arthroplasty. Reviewed, dictated and finalized at location A.
--- OUTSIDE RECORDS SUMMARY | 2025-05-08 00:24 | XMS_ITS | Encounter Summary ---
Author Organization [facility] Address [address] [place] [address] Care Team Providers Care Home Health Caregiver Name Role Phone Yolanda Spicer MD Primary Care Provider [phone] Yuan Colby MD Unavailable [phone] Gi Monroe MD Unavailable Maurisio Randhawa MD Unavailable [phone] Cora Castle PA-C Unavailable [phone] Encounter Details Date Type Department Care Team (Late st Contact Info) Description 09/11/2022 Hospital Orders Only [facility] Anesthesia [address] [place] [address] Silvia Collins RN Anesthesia Record Procedure Summary Procedure Name Responsible Anesthesiologist Anesthesia Start Time Anesthesia Stop Time XA AFLUTTER ABLATION Jose Enciso MD 09/15/22 0731 09/15/22 0921 Events Date Time Event Comment 09/15/2022 0653 0653 AN Anesthesia Prepped 0729 AN PRODUCT TEST SPECIALIST Prepped 0731 An Start Patient ID and [...] Coronavirus/COVID-19? No / Unsure 08/18/2022 2:33 PM ELASTIC YARN TWISTER documented as of this encounter Plan of Treatment Upcoming Encounters Date Type Department Care Team (Late st Contact Info) Description 05/17/2025 1:45 PM CDT Allied Health/Nurse Visit [facility] [address] [place] [address] Yuan Colby MD [address] [place] [address] 05/17/2025 2:00 PM CDT Office Visit [address] [place] [address] Cora Castle PA-C [address] [place] [address] 06/20/2025 1:30 AM CDT Allied Health/Nurse Visit [facility] [address] [place] [address] Yuan Colby MD [address] [place] [address] 01/03/2026 1:15 PM CDT Office Visit [facility] [place] [address] [facility] [place] [address] Gi Monroe MD [address] [place] [address] documented as of this encounter Visit Diagnoses Not on filedocumented in this encounter Care Teams Home Health Caregiver Relationship Specialty Start Date End Date Yolanda Spicer MD [address] [place] [address] PCP - General INTERNAL MEDICINE 01/23/20 Yuan Colby MD [address] [place] [address] Consulting Physician CLINICAL CARDIAC ELECTROPHYSIOLOGY 09/24/22 Gi Monroe MD [address] [place] [address] Consulting Physician CARDIOVASCULAR DISEASE 01/21/24 Maurisio Randhawa MD [address] [address] ORTHOPAEDIC SURGERY 12/28/24 Cora Castle PA-C [address] [place] [address] Referring Physician PHYSICIAN DYE AUTOMATION OPERATOR 04/04/25 documented as of this encounter
--- OUTSIDE RECORDS SUMMARY | 2025-05-08 00:24 | XMS_ITS | Encounter Summary ---
Author Organization [facility] Address [address] [place] [address] Care Team Providers Care Male Infertility Specialist Name Role Phone Yolanda Spicer MD Primary Care Provider [phone] Yuan Colby MD Unavailable [phone] Gi Monroe MD Unavailable Maurisio Randhawa MD Unavailable [phone] Cora Castle PA-C Unavailable [phone] Encounter Details Date Type Department Care Team (Late st Contact Info) Description 11/20/2023 Medication Management [facility] [address] [place] [address] Cora Castle PA-C [address] [place], [place] 337561 Social History Tobacco Use Types Packs/Day Years [...] 05/17/2025 1:45 PM CDT Allied Health/Nurse Visit [facility] [place] [address] [place] [address] Yuan Colby MD [address] [place] [address] 05/17/2025 2:00 PM CDT Office Visit [place] [address] [place] [address] Cora Castle PA-C [address] [place], [place] 8[address] 06/20/2025 1:30 AM CDT Allied Health/Nurse Visit [facility] [address] [place] [address] Yuan Colby MD [address] [place] [address] 01/03/2026 1:15 PM CDT Office Visit [facility] [place] [address] [place] [address] Gi Monroe MD [address] [place] [address] documented as of this encounter Visit Diagnoses Not on filedocumented in this encounter Care Teams Male Infertility Specialist Relationship Specialty Start Date End Date Yolanda Spicer MD [address] [place] [address] PCP - General INTERNAL MEDICINE 01/23/20 Yuan Colby MD [address] [place] [address] Consulting Physician CLINICAL CARDIAC ELECTROPHYSIOLOGY 09/24/22 Gi Monroe MD [address] [place] [address] Consulting Physician CARDIOVASCULAR DISEASE 01/21/24 Maurisio Randhawa MD [address] [id number] ORTHOPAEDIC SURGERY 12/28/24 Cora Castle PA-C [address] [place] [address] Referring Physician PHYSICIAN HOME EXTENSION AGENT 04/04/25 documented as of this encounter
--- OUTSIDE RECORDS SUMMARY | 2025-05-08 00:24 | XMS_ITS | Encounter Summary ---
Author Organization [facility] Address [address] [place] [address] Care Team Providers Care Pattern Clerk Name Role Phone Yolanda Spicer MD Primary Care Provider [phone] Yuan Colby MD Unavailable [phone] Gi Monroe MD Unavailable Maurisio Randhawa MD Unavailable [phone] Cora Castle PA-C Unavailable [phone] Encounter Details Date Type Department Care Team (Late st Contact Info) Description 08/05/2022 [facility] [address] [place] [address] Abstract, Doc Pccl Social History Tobacco Use [...] 05/17/2025 1:45 PM CDT Allied Health/Nurse Visit [facility] [place] [place] [address] Yuan Colby MD [address] [place] [address] 05/17/2025 2:00 PM CDT Office Visit [facility] [place] [address] [place] [address] Cora Castle PA-C [address] [place], [place] 312431 06/20/2025 1:30 AM CDT Allied Health/Nurse Visit [facility] [address] [place] [address] Yuan Colby MD [address] [place] [address] 01/03/2026 1:15 PM CDT Office Visit [place] [address] [place] [address] Gi Monroe MD [address] [place] [address] documented as of this encounter Procedures Procedure [...] on filedocumented in this encounter Care Teams Pattern Clerk Relationship Specialty Start Date End Date Yolanda Spicer MD [address] [place] [address] PCP - General INTERNAL MEDICINE 01/23/20 Yuan Colby MD [address] [place] [address] Consulting Physician CLINICAL CARDIAC ELECTROPHYSIOLOGY 09/24/22 Gi Monroe MD [address] [place] [address] Consulting Physician CARDIOVASCULAR DISEASE 01/21/24 Maurisio Randhawa MD [address] [address] ORTHOPAEDIC SURGERY 12/28/24 Cora Castle PA-C [address] [place] [address] Referring Physician PHYSICIAN OCCUPATIONAL THERAPIST'S ASSISTANT 04/04/25 documented as of this encounter
--- OUTSIDE RECORDS SUMMARY | 2025-05-08 00:24 | XMS_ITS | Encounter Summary ---
Author Organization [facility] Address [address] [place] [address] Care Team Providers Care Toy Parts Former Supervisor Name Role Phone Yolanda Spicer MD Primary Care Provider [phone] Yuan Colby MD Unavailable [phone] Gi Monroe MD Unavailable Maurisio Randhawa MD Unavailable [phone] Cora Castle PA-C Unavailable [phone] Encounter Details Date Type Department Care Team (Late st Contact Info) Description 10/29/2022 Abstract [facility] [address] [place] [address] Gerard Miller MD [address] [place] [address] Social History Tobacco Use Types [...] Coronavirus/COVID-19? No / Unsure 10/08/2022 11:42 AM FABRICS AND MATERIAL CUTTER documented as of this encounter Plan of Treatment Upcoming Encounters Date Type Department Care Team (Late st Contact Info) Description 05/17/2025 1:45 PM CDT Allied Health/Nurse Visit [facility] [address] [place] [address] Yuan Colby MD [address] [place] [address] 05/17/2025 2:00 PM CDT Office Visit [place] [address] [place] [address] Cora Castle PA-C [address] [place] [address] 06/20/2025 1:30 AM CDT Allied Health/Nurse Visit [facility] [address] [place] [address] Yuan Colby MD [address] [place] [address] 01/03/2026 1:15 PM CDT Office Visit [place] [address] [place] [address] Gi Monroe MD [address] [place] [address] documented as of this encounter Procedures Procedure Name Priority Date/Time Associated Diagnosis Comments CMP (ABSTRACTED LAB) Routine 12/30/2021 T3 FREE (ABSTRACTED) Routine 12/30/2021 TSH (OUTSIDE LAB) Routine 12/30/2021 CBC (OUTSIDE LAB) Routine 12/30/2021 BNP Routine 12/30/2021 LIPID PANEL Routine 12/30/2021 THYROXINE, FREE (FT4) Routine 12/30/2021 documented in this encounter Results * T3 FREE (ABSTRACTED) (12/30/2021) [facility] FREE T3 3.4 2.3 - 4.2 12/30/2021 us Default History Genericprovider LAB-OUTSIDE/ABST RACTED Final Result * LIPID PANEL (12/30/2021) [facility] NON HDL CHOLESTEROL 115 <130 CHOL/HDL RATIO 3.4 <5.0 12/30/2021 Default History Genericprovider LABORATORY Final Result * THYROXINE, FREE (FT4) (12/30/2021) [facility] T4 1.2 12/30/2021 Default History Genericprovider LABORATORY Final Result * TSH (OUTSIDE LAB) (12/30/2021) [facility] TSH 0.33 0.40 - 4.50 12/30/2021 Default History Genericprovider LAB-OUTSIDE/ABST RACTED Final Result * BNP (12/30/2021) [facility] B TYPE NATRIURETIC PEPTIDE 34 <100 12/30/2021 [...] on filedocumented in this encounter Care Teams Toy Parts Former Supervisor Relationship Specialty Start Date End Date Yolanda Spicer MD [address] [place] [address] PCP - General INTERNAL MEDICINE 01/23/20 Yuan Colby MD [address] [place] [address] Consulting Physician CLINICAL CARDIAC ELECTROPHYSIOLOGY 09/24/22 Gi Monroe MD [address] [place] [address] Consulting Physician CARDIOVASCULAR DISEASE 01/21/24 Maurisio Randhawa MD [address] [id number] ORTHOPAEDIC SURGERY 12/28/24 Cora Castle PA-C [address] [place] [address] Referring Physician PHYSICIAN RANGE AIDE 04/04/25 documented as of this encounter
--- OUTSIDE RECORDS SUMMARY | 2025-05-08 00:24 | XMS_ITS | Encounter Summary ---
Author Organization [facility] Address [address] [place] [address] Care Team Providers Care Online Marketing Director Name Role Phone Yolanda Spicer MD Primary Care Provider [phone] Yuan Colby MD Unavailable [phone] Gi Monroe MD Unavailable Maurisio Randhawa MD Unavailable [phone] Cora Castle PA-C Unavailable [phone] Encounter Details Date Type Department Care Team (Late st Contact Info) Description 09/11/2022 Hospital Orders Only [employer] Pre/Post [address] [place] [address] Yuan Colby MD [address] [place], [place] 114[address] Social History Tobacco Use Types Packs/Day Years [...] Coronavirus/COVID-19? No / Unsure 08/18/2022 2:33 PM MANAGER CULINARY documented as of this encounter Plan of Treatment Upcoming Encounters Date Type Department Care Team (Late st Contact Info) Description 05/17/2025 1:45 PM CDT Allied Health/Nurse Visit [facility] [address] [place] [address] Yuan Colby MD [address] [place] [address] 05/17/2025 2:00 PM CDT Office Visit [facility] [place] [address] [address] [place] [address] Cora Castle PA-C [address] [place], [place] [address] 06/20/2025 1:30 AM CDT Allied Health/Nurse Visit [facility] [address] [place] [address] Yuan Colby MD [address] [place] [address] 01/03/2026 1:15 PM CDT Office Visit [facility] [place] [address] [place] [address] Gi Monroe MD [address] [place], [place] [address] documented as of this encounter Visit Diagnoses Not on filedocumented in this encounter Care Teams Online Marketing Director Relationship Specialty Start Date End Date Yolanda Spicer MD [address] [place] [address] PCP - General INTERNAL MEDICINE 01/23/20 Yuan Colby MD [address] [place] [address] Consulting Physician CLINICAL CARDIAC ELECTROPHYSIOLOGY 09/24/22 Gi Monroe MD [address] [place] [address] Consulting Physician CARDIOVASCULAR DISEASE 01/21/24 Maurisio Randhawa MD [address] [address] ORTHOPAEDIC SURGERY 12/28/24 Cora Castle PA-C [address] [place] [address] Referring Physician PHYSICIAN ENCODING CLERK 04/04/25 documented as of this encounter
--- OUTSIDE RECORDS SUMMARY | 2025-05-08 00:24 | XMS_ITS | Clinical Summary ---
Author Organization [facility] Address [address] [place] [address] Care Team Providers Care Video Operator Name Role Phone Yolanda Spicer MD Primary Care Provider [phone] Yuan Colby MD Unavailable [phone] Gi Monroe MD Unavailable Maurisio Randhawa MD Unavailable [phone] Cora Castle PA-C Unavailable [phone] Allergies Active Allergy Reactions Criticality Noted [...] Problem Noted Date Diagnosed Date Atrial flutter ([facility]) 03/30/2023 S/P ablation of atrial flutter 03/30/2023 Implantable loop recorder present 03/30/2023 Mild coronary artery disease 02/11/2021 Takotsubo syndrome 02/17/2020 Moderate obstructive sleep apnea 02/17/2020 Atrial fibrillation, unspecified type ([facility]) 04/04/2011 Palpitations Mixed hyperlipidemia Essential (primary) hypertension Encounters Date Type Department Care Team Description 04/27/2025 2:00 AM CDT [facility] [address] [place] [address] Yuan Colby MD 03/16/2025 1:15 AM CDT Allied Health/Nurse Visit [facility] [address] [place] [address] Yuan Colby MD 03/07/2025 3:30 AM CDT Allied Health/Nurse Visit [facility] [address] [place] [address] Yuan Colby MD 02/07/2025 3:05 AM CDT Allied Health/Nurse Visit [facility] [address] [place] [address] Yuan Colby MD from Last 3 Months [...] 36.4 C (97.6 F) 09/15/2022 5:00 AM LOCKSTITCH POCKET SETTER Respiratory Rate 16 12/28/2024 3:06 PM CDT [...] 05/17/2025 1:45 PM CDT Allied Health/Nurse Visit [facility] [place] [address] [place] [address] Yuan Colby MD [address] [place] [address] 05/17/2025 2:00 PM CDT Office Visit [facility] [place] [address] [place] [address] Cora Castle PA-C [address] [place] [address] 06/20/2025 1:30 AM CDT Allied Health/Nurse Visit [facility] [address] [place] [address] Yuan Colby MD [address] [place] [address] 01/03/2026 1:15 PM CDT Office Visit [facility] [place] [address] Gi Monroe MD [address] [place] [address] Health Maintenance Due Date Last Done Comments [...] this topic Medical Devices Implanted Type Area Solar Sales Manager Device Identifier Shelf Expiration Date Model / Serial / Lot Medtronic Linq Ii-09/15/2022 Implanted:09/2022 by Yuan Colby MD (Quantity not on file) Implantable Loop Recorder [employer] 12/28/2023 [id number] / [id number] / Procedures Procedure Name Priority Date/Time Associated [...] Recently Relevant to Health Maintenance Insurance MEDICARE [facility] Advance Directives * Full Code (Latest Code Status on File) Date Activated Date Inactivated Comments 09/15/2022 9:51 AM 09/15/2022 3:58 PM Care Teams Video Operator Relationship Specialty Start Date End Date Yolanda Spicer MD [address] [place] [address] PCP - General INTERNAL MEDICINE 01/23/20 Yuan Colby MD [address] [place] [address] Consulting Physician CLINICAL CARDIAC ELECTROPHYSIOLOGY 09/24/22 Gi Monroe MD [address] [place] [address] Consulting Physician CARDIOVASCULAR DISEASE 01/21/24 Maurisio Randhawa MD [address] [address] ORTHOPAEDIC SURGERY 12/28/24 Cora Castle PA-C [address] [place] [address] Referring Physician PHYSICIAN AIRVEYOR OPERATOR 04/04/25
--- OUTSIDE RECORDS SUMMARY | 2025-05-08 00:24 | XMS_ITS | Encounter Summary ---
Author Organization [facility] Address [address] [place] [address] Care Team Providers Care Body Presser Name Role Phone Yolanda Spicer MD Primary Care Provider [phone] Yuan Colby MD Unavailable [phone] Gi Monroe MD Unavailable Maurisio Randhawa MD Unavailable [phone] Cora Castle PA-C Unavailable [phone] Encounter Details Date Type Department Care Team (Late st Contact Info) Description 10/24/2022 [employer] Message [facility] [place] [address] Yuan Colby MD [address] [place], [place] [phone] Medication Social History Tobacco Use Types Packs/Day [...] Coronavirus/COVID-19? No / Unsure 10/08/2022 11:42 AM COOKER SULFITE documented as of this encounter Plan of Treatment Upcoming Encounters Date Type Department Care Team (Late st Contact Info) Description 05/17/2025 1:45 PM CDT Allied Health/Nurse Visit [facility] [place] [address] [place] [address] Yuan Colby MD [address] [place] [address] 05/17/2025 2:00 PM CDT Office Visit [place] [address] [place] [address] Cora Castle PA-C [address] [place] [address] 06/20/2025 1:30 AM CDT Allied Health/Nurse Visit [facility] [address] [place] [address] Yuan Colby MD [address] [place] [address] 01/03/2026 1:15 PM CDT Office Visit [facility] [place] [address] [place] [address] Gi Monroe MD [address] [place] [address] documented as of this encounter Visit Diagnoses Not on filedocumented in this encounter Care Teams Body Presser Relationship Specialty Start Date End Date Yolanda Spicer MD [address] [place] [address] PCP - General INTERNAL MEDICINE 01/23/20 Yuan Colby MD [address] [place] [address] Consulting Physician CLINICAL CARDIAC ELECTROPHYSIOLOGY 09/24/22 Gi Monroe MD [address] [place] [address] Consulting Physician CARDIOVASCULAR DISEASE 01/21/24 Maurisio Randhawa MD [address] [address] ORTHOPAEDIC SURGERY 12/28/24 Cora Castle PA-C [address] [place] [address] Referring Physician PHYSICIAN GAS PIT WORKER 04/04/25 documented as of this encounter
--- OUTSIDE RECORDS SUMMARY | 2025-05-08 00:24 | XMS_ITS | Encounter Summary ---
Author Organization [facility] Address [address] [place] [address] Care Team Providers Care Tin Dipper Name Role Phone Yolanda Spicer MD Primary Care Provider [phone] Yuan Colby MD Unavailable [phone] Gi Monroe MD Unavailable Maurisio Randhawa MD Unavailable [phone] Cora Castle PA-C Unavailable [phone] Encounter Details Date Type Department Care Team (Late st Contact Info) Description 01/09/2025 [employer] [facility] [address] [place] [address] [facility] Provider Results Social History Tobacco Use Types [...] 05/17/2025 1:45 PM CDT Allied Health/Nurse Visit [facility] [address] [place] [address] Yuan Colby MD [address] [place] [address] 05/17/2025 2:00 PM CDT Office Visit [address] [place] [address]-750 Cora Castle PA-C [address] [place], [place] [address] 06/20/2025 1:30 AM CDT Allied Health/Nurse Visit [facility] [address] [place] [address] Yuan Colby MD [address] [place] [address] 01/03/2026 1:15 PM CDT Office Visit [facility] [place] [address] [place] [address] Gi Monroe MD [address] [place], [place] [address] documented as of this encounter Visit Diagnoses Not on filedocumented in this encounter Care Teams Tin Dipper Relationship Specialty Start Date End Date Yolanda Spicer MD [address] [place] [address] PCP - General INTERNAL MEDICINE 01/23/20 Yuan Colby MD [address] [place] [address] Consulting Physician CLINICAL CARDIAC ELECTROPHYSIOLOGY 09/24/22 Gi Monroe MD [address] [place] [address] Consulting Physician CARDIOVASCULAR DISEASE 01/21/24 Maurisio Randhawa MD [address] [address] ORTHOPAEDIC SURGERY 12/28/24 Cora Castle PA-C [address] [place] [address] Referring Physician PHYSICIAN PIER HAND 04/04/25 documented as of this encounter
--- OUTSIDE RECORDS SUMMARY | 2025-05-08 00:24 | XMS_ITS | Encounter Summary ---
Author Organization [facility] Address [address] [place] [address] Care Team Providers Care Diesel Power Shovel Operator Name Role Phone Yolanda Spicer MD Primary Care Provider [phone] Yuan Colby MD Unavailable [phone] Gi Monroe MD Unavailable Maurisio Randhawa MD Unavailable [phone] Cora Castle PA-C Unavailable [phone] Encounter Details Date Type Department Care Team (Latest Contact Info) Description 10/23/2023 [employer] Message [facility] [place] [address] Yuan Colby MD [address] [place] [address] Clarify instructions Social History Tobacco [...] Care Team ( st Contact Info) Description 05/17/2025 1:45 PM CDT Allied Health/Nurse Visit [facility] [address] [place] [address] Yuan Colby MD [address] [place] [address] 05/17/2025 2:00 PM CDT Office Visit [place] [address] [place] [address] Cora Castle PA-C [address] [place], [place] [address] 06/20/2025 1:30 AM CDT Allied Health/Nurse Visit [facility] [address] [place] [address] Yuan Colby MD [address] [place], [place] [address] 01/03/2026 1:15 PM CDT Office Visit [place] [address] [facility] [place] [place] [address] Gi Monroe MD [address] [place], [place] [address]26[address] documented as of this encounter Visit Diagnoses Not on filedocumented in this encounter Care Teams Diesel Power Shovel Operator Relationship Specialty Start Date End Date Yolanda Spicer MD [address] [place] [address] PCP - General INTERNAL MEDICINE 01/23/20 Yuan Colby MD [address] [place] [address] Consulting Physician CLINICAL CARDIAC ELECTROPHYSIOLOGY 09/24/22 Gi Monroe MD [address] [place] [address] Consulting Physician CARDIOVASCULAR DISEASE 01/21/24 Maurisio Randhawa MD [address] [address] ORTHOPAEDIC SURGERY 12/28/24 Cora Castle PA-C [address] [place] [address] Referring Physician PHYSICIAN SOFTWARE QUALITY SPECIALIST 04/04/25 documented as of this encounter
--- NOTE | 2025-05-08 10:18 | WPDHPUPDATE1 ---
History and Physical Update Update Date/Time: 05/08/25 10:18 History and Physical has been reviewed, including an updated exam of the patient. There are NO changes in the patient's condition. Risks, benefits, and alternatives have been discussed and questions answered. Patient agrees to proceed with procedure.
[2025-05-08 10:39] LABS: Hematocrit 39.5 % (37.0-47.0); Hemoglobin 12.1 g/dL (12.0-15.0); Immature Granulocyte Percent A 0.4 % (0-0.5); Lymphocytes Absolute Auto 1.93 K/mm3 (0.9-3.2); Mean Corpuscular HGB Conc 30.6 g/dl (32-36); Mean Corpuscular Hemoglobin 27.5 pg (26-34); Mean Corpuscular Volume 89.8 fl (80-100); Nucleated Red Blood Cells Absolute Auto 0.000 K/mm3 (0.0-0.012); Nucleated Red Blood Cells Perc 0.0 % (0.0-0.2); Platelet Count Result 223 k/mm3 (150-375); Red Blood Count 4.40 M/mm3 (4.2-5.4); White Blood Count 7.3 K/mm3 (4.5-10.0)
[2025-05-08] MEDS: TRANEXAMIC ACID 1,000MG/ISO100 1,000 MG/100 ML BAG 200 MG IVPB (10:45)
--- NOTE | 2025-05-08 11:45 | WPDANESEPPF ---
Anes - Initial Pre Proc Eval Procedure: Operation Date: 05/08/25 12:00 Proposed Procedures p Right Total Hip Arthroplasty - Maurisio Randhawa MD Date/Time: 05/08/25 11:45 Surgeon: Maurisio Randhawa MD Pre Op Diagnosis: primary OA right hip Patient Data Age: 69 Gender: F Height: 1.73 m Weight: 91.5 kg Last Vital Signs Temp 36.3 C L 05/08/25 10:51 Pulse 45 L 05/08/25 10:51 Resp 16 05/08/25 10:51 BP 149/47 H 05/08/25 10:51 Pulse Ox 98 05/08/25 10:51 O2 Del Method Room Air 05/08/25 10:51 Allergies Allergy/AdvReac Type Severity Reaction Status Date / Time No Known Allergies Allergy Verified 04/14/25 12:12 Home Medications ?Medication ?Instructions ?Recorded ?Confirmed ?Type carvedilol 6.25 mg tablet 6.25 mg PO BID 12/22/19 05/08/25 History metformin 500 mg tablet,extended 500 mg PO DAILY 12/22/19 05/08/25 History release 24 hr multivitamin (Daily Multi-Vitamin 1 tablet PO DAILY 12/22/19 05/08/25 History tablet) omega 4-dnj-kew-fish oil 1,000 mg 1 cap PO BID 12/22/19 05/08/25 History (120 mg-180 mg) capsule (Fish Oil) rosuvastatin 5 mg tablet 5 mg PO DAILY 12/22/19 05/08/25 History cholecalciferol (vitamin D3) 25 25 mcg PO DAILY 05/22/21 05/08/25 History mcg (1,000 unit) capsule (Vitamin D3) rivaroxaban 20 mg tablet (Xarelto) 20 mg PO DAILY 11/25/24 05/08/25 History omeprazole 20 mg capsule,delayed 20 mg PO DAILY 04/14/25 05/08/25 History release potassium chloride 10 mEq 10 meq PO .day 04/14/25 05/08/25 History tablet,extended release Laboratory Tests 05/08/25 05/08/25 10:25 10:39 WBC 7.3 K/mm3 (4.5-10.0) RBC 4.40 M/mm3 (4.2-5.4) Hgb 12.1 g/dL (12.0-15.0) Hct 39.5 % (37.0-47.0) MCV 89.8 fl (80-100) MCH 27.5 pg (26-34) MCHC 30.6 L g/dl (32-36) RDW 14.4 % (11.5-14.5) Plt Count 223 k/mm3 (150-375) MPV 10.3 fl (7.4-10.4) Immature Gran % (Auto) 0.4 % (0-0.5) Neut % (Auto) 61.9 % (45.5-73.1) Lymph % (Auto) 26.6 % (18.3-44.2) Snyder % (Auto) 8.8 H % (2.6-8.5) Eos % (Auto) 1.9 % (0-4.4) Baso % (Auto) 0.4 % (0.2-1.2) Lymph # (Auto) 1.93 K/mm3 (0.9-3.2) Snyder # (Auto) 0.6 K/mm3 (0.1-0.6) Eos # (Auto) 0.1 K/mm3 (0-0.3) Baso # (Auto) 0.0 K/mm3 (0.0-0.1) Abs Immat Gran (auto) 0.03 K/mm3 (0.00-0.031) Absolute Neuts (auto) 4.5 K/mm3 (1.3-6.7) Absolute Nucleated RBC 0.000 K/mm3 (0.0-0.012) Nucleated RBC % 0.0 % (0.0-0.2) POC Capillary Glucose 113 H mg/dl (65-105) Blood Type O Positive Antibody Screen Negative Patient hx anesthesia problems: none Family hx anesthesia problems: none Results Review: All pre-operative results and documents have been reviewed as part of the pre-operative evaluation. [facility] Past Medical History Medical History Pre-diabetes A-fib HLD (hyperlipidemia) HTN (hypertension) Surgical History Surgical History H/O gynecological procedure vaginal wall tie up H/O: hysterectomy Family History Family History Mother Lung cancer Father Heart disease Diabetes mellitus Social History Social History Smoking status: Never smoker Second hand tobacco smoke exposure: No Alcohol intake: never Substance use: never Substance use type: does not use Do You Feel Safe in your Home?: Yes Lack of Transportation: No Lack of Food: Never True Current Housing: I Have Housing Concerned About Future Housing: No Difficulty Paying Gas/Electric Bills: No Difficulty Paying for Meds: No Currently Unemployed: No Education: High School Diploma/GED Difficulty w/ Childcare or Family Care: No Living arrangements: with family Additional living arrangements comments: Occupation/Education: retired Gender identity (if verbalized by the patient): Female Sexual Orientation (if Verbalized by the Patient): Straight or Heterosexual Spiritual care concerns: No Anes - Eval Final PreProcedure Day of Procedure 05/08/25 11:45 Patient weight: overweight Heart: regular rate and rhythm Lungs: clear to auscultation Airway: Mallampati scale class II Neurological: alert and oriented Last oral intake: >/= 8 hours ASA classification: III Emergent: no Anesthetic plan: proceed Anesthesia type and monitoring: general ETT and standard monitoring Results Review: All pre-operative results and documents have been reviewed as part of the pre-operative evaluation. Informed Consent: The patient's anesthetic plan and its attendant risks and benefits were discussed with the patient/family/POA. Questions were solicited and answers provided to the satisfaction of the patient/family/POA.
[2025-05-08] MEDS: LACTATED RINGERS 1,000 ML 30 ML IV CONT ×2 (12:00→14:18)
[2025-05-08] MEDS: ceFAZolin 2 GM in SODIUM CHLORIDE 0.9% IV 50 ML 100 ML IVPB (12:10)
[2025-05-08] MEDS: SODIUM CHLORIDE 0.9% IV 37.7 ML, MORPHINE SULFATE INJ (*CRX) 2 MG, ROPivacaine HCL 1% 2... INFILTRATE (12:57)
[2025-05-08] MEDS: TRANEXAMIC ACID 1,000 MG/10 ML AMPUL 1000 MG IV PUSH (13:41)
[2025-05-08] MEDS: fentaNYL CITRATE INJ (*CRX) 100 MCG/2 ML VIAL 25 MCG IV PUSH ×2 (14:56→15:10)
--- NOTE | 2025-05-08 15:05 | SUR.PHASEI ---
Dr. Lomeli aware of elevated BP. No treatment at this time.
--- NOTE | 2025-05-08 16:32 | ADMGEN ---
This patient, Zulema Prado, was admitted to Medical Room 242-01. Patient/family oriented to hospital policies and general routines including ID bracelet, bed and alarms, visiting hours, pain management, procedures, bathroom and other care routines, personal items, smoking policy, room service/diet, and visiting hours. Information on how to activate the Rapid Response Team has been discussed. Patient/Family are encouraged to report perceived risks to care and to ask questions if they do not understand what they are told or what they should do.
--- NOTE | 2025-05-08 16:56 | W.PM.PROC2 ---
Procedure Note - Detailed Date of Procedure 05/08/25 Pre-op Diagnosis Right hip degenerative arthritis. Post-op Diagnosis Same Procedure Performed Right Total Hip Arthroplasty Surgeon Maurisio Randhawa MD Anesthesia General Findings Severe arthritis with marked varus neck angle. Description of Procedure The patient was given preoperative antibiotics. A general anesthetic was administered. The patient was carefully placed in the lateral decubitus position on the PEG board. The shoulders and hips were carefully positioned for component and leg length positioning reference. The hip was prepped and draped in the usual sterile fashion. A longitudinal incision was created over the posterior aspect of the greater trochanter. Careful dissection was brought down through the deep fascia with electrocautery. A minimally invasive optimized posterior approach to the hip was performed. The short external rotators and capsule were taken down in an L-shaped capsulotomy, sparing the piriformis. The tissue was tagged for later repair using number 2 high strength suture. The femoral neck was measured and taken in situ. The femoral head was removed. The acetabulum was carefully exposed. The inferior capsule was released. The labrum was resected. The acetabulum was sequentially reamed to the intended cup size. The cup was impacted into position with good press-fit. 2 supplemental screws placed. Typical anatomic landmarks, including the bony contact points as well as the inferior transverse acetabular ligament were used to confirm cup positioning with preoperative templating. The cup was placed with slight increased anteversion to the DUSTY, but the anterior cup was just under the anterior bone column. Posteriorly and superiorly the cup matched the anatomy. A 10 degree liner was used to match the previous height of the posterior labrum. Attention was turned to the femur, which was carefully exposed. The hip was reamed and then broached sequentially. Excellent press-fit was obtained with the broach. The hip was trialed. Measurements were utilized, including the lesser trochanter as well as the center of the femoral head and the tip of the trochanter, and excellent assessment of the offset and leg lengths were confirmed. The real component was impacted into position. It seated 2 mm above the neck cut resulting in approximately 5mm leg lengthening. Reduction of the posterior capsule and external rotators was anatomic. The hip was copiously irrigated with pulsatile lavage periodically throughout the procedure. The real components were then assembled and reduced. The hip was stable throughout typical maneuvers, including extension, external rotation to 70 degrees, the position of sleep as well as flexion to 90 degrees with internal rotation past 35 degrees. The shake test confirmed stability without impingement. Osteophytes were removed as necessary. The short external rotators and capsule were repaired back to the posterior trochanter through drill holes. The deep fascia was repaired with running number 2 barbed suture, followed by 2-0 Stratafix suture and 3-0 Stratafix suture in the dermis. Steri-Strips were placed on the skin, followed by a sterile occlusive dressing. There were no complications. Meticulous hemostasis was maintained with the AquaMantys device. The patient was brought to the recovery room in stable condition. There were no complications. Implants [employer] [place] [employer] hip stem, high offset size 2 , was utilized with excellent press-fit. The 52 mm Trident II acetabular component was impacted with excellent press-fit stability. 10 degree elevated polyethylene liner the +0, 36 mm Biolox ceramic femoral head was utilized. Estimated Blood Loss 400 Drains No Packing No Pathology None sent Complications No immediate complications Condition Stable Disposition PACU [facility] Billing Surgery - Charge Forward: Surgery Billing
[2025-05-08] MEDS: ASPIRIN 81 MG ENTERIC TABLET PO (17:07)
[2025-05-08] MEDS: MELOXICAM 7.5 MG TABLET PO (17:08)
[2025-05-08] MEDS: ACETAMINOPHEN 325 MG TABLET 650 MG PO (17:08)
[2025-05-08] MEDS: SENNA/DOCUSATE SODIUM TABLET 2 TAB PO (17:08)
[2025-05-08] MEDS: ceFAZolin 2 GM/D5W 50 ML 2 GM/50 ML BAG IVPB (20:14)
[2025-05-09] MEDS: ACETAMINOPHEN 325 MG TABLET 650 MG PO ×3 (00:24→11:58)
[2025-05-09 01:23] VITALS: BP 122/52; PULSE 64; RESP 18; TEMP 36.6; O2SAT 98
[2025-05-09] MEDS: ceFAZolin 2 GM/D5W 50 ML 2 GM/50 ML BAG IVPB ×2 (03:57→11:58)
[2025-05-09 05:13] LABS: Hematocrit 34.9 % (37.0-47.0); Hemoglobin 11.1 g/dL (12.0-15.0); Immature Granulocyte Percent A 0.6 % (0-0.5); Lymphocytes Absolute Auto 1.04 K/mm3 (0.9-3.2); Mean Corpuscular HGB Conc 31.8 g/dl (32-36); Mean Corpuscular Hemoglobin 28.1 pg (26-34); Mean Corpuscular Volume 88.4 fl (80-100); Nucleated Red Blood Cells Absolute Auto 0.000 K/mm3 (0.0-0.012); Nucleated Red Blood Cells Perc 0.0 % (0.0-0.2); Platelet Count Result 225 k/mm3 (150-375); Red Blood Count 3.95 M/mm3 (4.2-5.4); White Blood Count 16.2 K/mm3 (4.5-10.0)
[2025-05-09 05:23] VITALS: BP 107/61; PULSE 96; RESP 20; TEMP 36.3; O2SAT 98
[2025-05-09 05:41] LABS: Anion Gap 7 mmol/L (4-12); Blood Urea Nitrogen 14 mg/dL (7-17); Calcium 8.8 mg/dL (8.4-10.2); Carbon Dioxide 27 mmol/L (22-30); Chloride 96 mmol/L (98-107); Estimated CRCL calculation 82 ml/min; Estimated Glomerular Filt Rate > 60; Glucose 165 mg/dL (65-110); Potassium 3.8 mmol/L (3.4-5.0); Sodium 130 mmol/L (137-145)
[2025-05-09] MEDS: oxyCODONE/ACETAMINOPHEN (*CRX) 5-325 MG TABLET 1 TABLET PO (08:17)
[2025-05-09 08:18] VITALS: PULSE 96
[2025-05-09] MEDS: ASPIRIN 81 MG ENTERIC TABLET PO (08:18)
[2025-05-09] MEDS: metFORMIN HCL XR 500 MG TAB.SR.24H PO (08:19)
[2025-05-09] MEDS: CHOLECALCIFEROL (VITAMIN D3) 25 MCG (1,000 UNITS) TABLET PO (08:19)
[2025-05-09] MEDS: SENNA/DOCUSATE SODIUM TABLET 2 TAB PO (08:19)
[2025-05-09] MEDS: MULTIVITAMINS THERAPEUTIC TAB (*BKC) 1 TABLET PO (08:19)
[2025-05-09] MEDS: MELOXICAM 7.5 MG TABLET PO (08:19)
[2025-05-09] MEDS: PANTOPRAZOLE 40 MG TABLET PO (08:20)
[2025-05-09] MEDS: ROSUVASTATIN 5 MG TABLET PO (08:20)
[2025-05-09] MEDS: POTASSIUM CHLORIDE 10 MEQ ER TABLET PO (08:20)
[2025-05-09 10:10] VITALS: BP 109/38; PULSE 54; RESP 14; O2SAT 96
== END 2025-05-09 13:30 | disposition home or self-care (01) ==
LOC: ANHSURGERY 15:07 → ANH2MED 15:45
PROVIDERS: PCP Internal Medicine; Visit Provider Orthopaedic Surgery
PROC: (CPT 27130; principal; 2025-05-08 12:00)
DX: M16.11 Unilateral primary osteoarthritis, right hip (principal); R73.03 Prediabetes; I48.91 Unspecified atrial fibrillation; E78.5 Hyperlipidemia, unspecified; I10 Essential (primary) hypertension
CPT/HCPCS: 27130; 36415; 73502; 80048; 82948; 85025; 86850; 86900; 86901; 97110; 97161; 97165; 97530; 97535; J0690; A9270; C1776; J0166; J1100; J1171; J1885; J2003; J2250; J2270; J2405; J2704; J2795; J3010; J7120; J7512

== ENCOUNTER 2025-08-30 09:48 | Outpatient (CLI) | payer MEDICARE, SELFPAY ==
--- NOTE | ~2025-08-30 | MM_ITS ---
EXAMINATION: MM screening tc BI w lee HISTORY: Screening. TECHNIQUE: Craniocaudal and mediolateral oblique 3-D tomosynthesis images were obtained and synthetic 2-D images were generated. CAD analysis was submitted and interpreted. COMPARISON: 2023 and 2022 BREAST PARENCHYMAL COMPOSITION: Not Dense: There are scattered areas of fibroglandular tissue. FINDINGS: No suspicious masses are seen. There are no suspicious calcifications. No unexplained architectural distortion is seen. There are no skin or nipple abnormalities identified. There is no adenopathy seen on the images submitted. IMPRESSION: No mammographic evidence to suggest malignancy is seen. The patient may return to screening mammography as per ACR guidelines. BI-RADS: 1 - Negative. Reviewed, dictated and finalized at location B. PHYSICAL SCIENTIST
== END 2025-08-30 09:49 | disposition home or self-care (01) ==
PROVIDERS: PCP Internal Medicine; Visit Provider Internal Medicine
DX: Z12.31 Encounter for screening mammogram for malignant neoplasm of breast (principal)
CPT/HCPCS: 77063; 77067